=== PATIENT | female | born 1975 | race Caucasian/White ===

== ENCOUNTER 2024-02-19 02:19 | Inpatient (IN) | payer OTHER, SELFPAY ==
[2024-02-18 23:23] VITALS: BP 118/56
--- NOTE | 2024-02-18 23:39 | ED.GENMED ---
History of Present Illness
<Gini Cade PA-C - Last Filed: 02/19/24 02:30>
General
Chief Complaint: Breathing Problem
Source: patient
Exam Limitations: none
Time Seen by Provider: 02/18/24 23:37
Nursing documentation reviewed up to this point in time: agreed with
Travel History
Have you had any contact with someone who has COVID-19?: No
Do you have any symptoms of coronavirus? Fever > 100 degrees, chills, cough, shortness of breath, sore throat, loss of taste or smell, muscle aches, or headache?: No
History of Present Illness
History of Present Illness:
This is a 48-year-old female with a past medical history of insulin-dependent diabetes, hypertension, hyperlipidemia, anxiety, bipolar disorder, asthma who is presenting emergency department today with shortness of breath and cough. Patient has had
a chronic cough however notes that the cough has become worse within the past 24 hours. Patient receives long-term care at [facility] rehab facility. At her rehab facility, they noticed that her pulse ox was in the 80s. Patient does not use any
oxygen at baseline. Patient does have a history of asthma but states that she has not had to use her inhalers this past week. Patient denies any chest pain, abdominal pain, nausea, vomiting. Patient Nuys any fevers or chills. Patient denies any
pain in her lower extremities. 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 Patient apparently received an extra dose of Suboxone today. I did call [facility] rehab facility, however I was unable to speak to patient's nurse as there
was a shift change with the manager shift.
Past History
<Gini Cade PA-C - Last Filed: 02/19/24 02:30>
Past History
ED Past Medical History: Asthma, GERD, HTN, Hypercholesterolemia, NIDDM, Hypothyroidism and Psychiatric (Anxiety, bipolar disorder)
ED Past Surgical History: Cholecystectomy, Gynecological (Tubel), Orthopedic (RBKA) and Other (Umbilical hernia repair, Gastric bypass sleeve)
Social History
Tobacco: Smoker
Alcohol: None
Personal:
Living: retirement
Review of Systems
<Gini Cade PA-C - Last Filed: 02/19/24 02:30>
Review of Systems
All Other Systems: ROS reviewed and negative except as documented in HPI and ROS
Phy Exam
<Gini Cade PA-C - Last Filed: 02/19/24 02:30>
Physical Exam
Physical Exam:
General: Patient demonstrates increased work of breathing but is nontoxic-appearing. Chronically ill-appearing. Obese body habitus.
Skin: Warm and dry, no rashes or lesions
Head: Normocephalic, atraumatic
Eyes: Sclera non-icteric. EOMs intact. PERRLA.
Cardiac: Regular rate and rhythm, no murmurs
Peripheral Vascular: Left lower extremity edematous but non-pitting, distal pulses intact
Pulm: Increased respiratory effort, increased respiratory rate, audible wheezing heard, crackles heard on right lower lung base, diffuse wheezing heard
Abdomen: No abdominal tenderness to palpation
Musculoskeletal: No tenderness to palpation of bilateral lower extremities.
Neuro: CN II-XII intact, no focal neurologic deficits.
Psychiatric: Appropriate mood and affect.
Scores
<Gini Cade PA-C - Last Filed: 02/19/24 02:30>
Heart Failure Risk
Heart Failure Risk Score: Not Applicable
Course
<Gini Cade PA-C - Last Filed: 02/19/24 02:30>
Orders/Labs/Results
Orders:
Orders
02/18/24 23:21
Electrocardiogram (*1) Urgent
Reason for Study: Other
Other Reason for Exam: Respiratory Distress
Cardiac Monitoring- Treatment ONCE
EKG- Treatment ONCE
IV Insert/Care/Rem.- Treatment PRN
Complete Blood Count/With Diff Urgent
Comprehensive Metabolic Panel Urgent
NT-proBNP Urgent
Troponin I Urgent
O2 Therapy [RESP] Urgent
Titrate/Wean O2 to maintain O2 sat greater than (%): 93
Special Instructions: TO MAINTAIN CONTINUOUS O2 SATS >/= 93%
02/19/24 00:00
CR Chest - 2 Views Urgent
Reason For Exam: respiratory distress
02/19/24 00:32
Ipratropium/Albuterol Sulfate [Duoneb] 3 ml INH R NOW ONE
02/19/24 00:38
COVID-19 Antigen Urgent
Source: Nasal Swab
02/19/24 00:42
CT Chest W/o Iv Contrast Urgent
Comment:
Reason For Exam: cough, sob
02/19/24 01:09
0.9% Sodium Chloride 1000 ml [Nss] 1,000 ml IV BOLUS
02/19/24 01:10
CefTRIAXone [Rocephin] 1,000 mg IV NOW STA
02/19/24 01:39
Lactate Level [Lactic Acid] Urgent
Blood Culture Q30M
SEVERINO Source: Blood/Venous
Specimen Description:
02/19/24 01:53
Admit/Transfer Patient As Directed
Co-Sign Provider:
Level of Care: Inpatient admission
Assign to:: Telemetry
Physician / Group: Slick
Diagnosis: Pneumonia, Hypoxemia
Reason for Telemetry: Arrhythmia
Date to Stop Telemetry: 02/22/24
Time to Stop Telemetry: 11:00
Reason for Hospitalization: Pneumonia, Hypoxemia
Expected length of stay greater than two midnights?: Yes
ELOS- Estimated Length of Stay in days: 3
I certify the patient meets the requirements for IP care: Yes
02/19/24 01:57
Venous Blood Gas Urgent
%Oxygen/Room Air: 89
02/19/24 02:00
Doxycycline Hyclate [Vibramycin] 100 mg 0.9% Sodium Chloride 250 ml [Nss] 250 ml IV NOW
02/19/24 02:01
Code Status As Directed
Resuscitation Status: Full Code
Blood Culture, Pediatric Urgent
SEVERINO Source: Blood/Venous
Specimen Description:
Date Specimen was Collected: 02/19/24
Time Specimen was Collected: 02:01
02/22/24 11:00
DC Protocol for Telemetry ONCE
Abnormal Lab Results
02/19/24 02/19/24
00:11 01:57
WBC 14.6 H 10^3/uL
(4.8-10.8)
RBC 4.11 L 10^6/uL
(4.20-5.40)
Hgb 7.2 L g/dL
(12.0-16.0)
Hct 25.1 L %
(37.0-47.0)
MCV 61.1 L fL
(81.0-99.0)
MCH 17.5 L pg
(27.0-31.0)
MCHC 28.7 L g/dL
(33.0-37.0)
RDW 21.2 H %
(11.5-14.5)
Plt Count 437 H 10^3/uL
(130-400)
Abs Immat Gran (auto) 0.2 H 10^3/uL
(0-0.05)
Absolute Neuts (auto) 10.0 H 10^3/uL
(1.4-6.5)
Absolute Monos (auto) 1.4 H 10^3/uL
(0.1-0.6)
Immature Gran % 1.3 H %
(0-0.5)
Lymphocytes % 17.5 L %
(20.5-51.1)
VBG pCO2 54 H mmHg
(35-48)
VBG pO2 84 H mmHg
(30-50)
VBG HCO3 28.5 H mmol/L
(22-27)
BUN 21 H mg/dl
(7-17)
Creatinine 1.4 H mg/dL
(0.6-1.0)
AST 53 H U/L
(14-36)
Troponin I 0.143 H* ng/ml
02/19/24 00:11
02/19/24 00:11
Vital Signs
Initial and Last Documented VS:
Initial Vital Signs
Temp Pulse Resp BP Pulse Ox
99.2 F 77 17 118/56 89
02/18/24 23:23 02/18/24 23:23 02/18/24 23:23 02/18/24 23:23 02/18/24 23:23
Last Documented Vital Signs
Temp Pulse Resp BP Pulse Ox
99.2 F 80 20 97/53 93
02/18/24 23:23 02/19/24 02:12 02/19/24 01:00 02/19/24 02:02 02/19/24 02:12
<Clayton Mcguire MD - Last Filed: 02/19/24 01:21>
Orders/Labs/Results
Orders:
Orders
02/18/24 23:21
Electrocardiogram (*1) Urgent
Reason for Study: Other
Other Reason for Exam: Respiratory Distress
Cardiac Monitoring- Treatment ONCE
EKG- Treatment ONCE
IV Insert/Care/Rem.- Treatment PRN
Complete Blood Count/With Diff Urgent
Comprehensive Metabolic Panel Urgent
NT-proBNP Urgent
Troponin I Urgent
O2 Therapy [RESP] Urgent
Titrate/Wean O2 to maintain O2 sat greater than (%): 93
Special Instructions: TO MAINTAIN CONTINUOUS O2 SATS >/= 93%
02/19/24 00:00
CR Chest - 2 Views Urgent
Reason For Exam: respiratory distress
02/19/24 00:32
Ipratropium/Albuterol Sulfate [Duoneb] 3 ml INH R NOW ONE
02/19/24 00:38
COVID-19 Antigen Urgent
Source: Nasal Swab
02/19/24 00:42
CT Chest W/o Iv Contrast Urgent
Comment:
Reason For Exam: cough, sob
02/19/24 01:09
0.9% Sodium Chloride 1000 ml [Nss] 1,000 ml IV BOLUS
02/19/24 01:10
CefTRIAXone [Rocephin] 1,000 mg IV NOW STA
02/19/24 01:39
Lactate Level [Lactic Acid] Urgent
Blood Culture Q30M
SEVERINO Source: Blood/Venous
Specimen Description:
02/19/24 01:53
Admit/Transfer Patient As Directed
Co-Sign Provider:
Level of Care: Inpatient admission
Assign to:: Telemetry
Physician / Group: Slick
Diagnosis: Pneumonia, Hypoxemia
Reason for Telemetry: Arrhythmia
Date to Stop Telemetry: 02/22/24
Time to Stop Telemetry: 11:00
Reason for Hospitalization: Pneumonia, Hypoxemia
Expected length of stay greater than two midnights?: Yes
ELOS- Estimated Length of Stay in days: 3
I certify the patient meets the requirements for IP care: Yes
02/19/24 01:57
Venous Blood Gas Urgent
%Oxygen/Room Air: 89
02/19/24 02:00
Doxycycline Hyclate [Vibramycin] 100 mg 0.9% Sodium Chloride 250 ml [Nss] 250 ml IV NOW
02/19/24 02:01
Code Status As Directed
Resuscitation Status: Full Code
Blood Culture, Pediatric Urgent
SEVERINO Source: Blood/Venous
Specimen Description:
Date Specimen was Collected: 02/19/24
Time Specimen was Collected: 02:01
02/22/24 11:00
DC Protocol for Telemetry ONCE
Abnormal Lab Results
02/19/24 02/19/24
00:11 01:57
WBC 14.6 H 10^3/uL
(4.8-10.8)
RBC 4.11 L 10^6/uL
(4.20-5.40)
Hgb 7.2 L g/dL
(12.0-16.0)
Hct 25.1 L %
(37.0-47.0)
MCV 61.1 L fL
(81.0-99.0)
MCH 17.5 L pg
(27.0-31.0)
MCHC 28.7 L g/dL
(33.0-37.0)
RDW 21.2 H %
(11.5-14.5)
Plt Count 437 H 10^3/uL
(130-400)
Abs Immat Gran (auto) 0.2 H 10^3/uL
(0-0.05)
Absolute Neuts (auto) 10.0 H 10^3/uL
(1.4-6.5)
Absolute Monos (auto) 1.4 H 10^3/uL
(0.1-0.6)
Immature Gran % 1.3 H %
(0-0.5)
Lymphocytes % 17.5 L %
(20.5-51.1)
VBG pCO2 54 H mmHg
(35-48)
VBG pO2 84 H mmHg
(30-50)
VBG HCO3 28.5 H mmol/L
(22-27)
BUN 21 H mg/dl
(7-17)
Creatinine 1.4 H mg/dL
(0.6-1.0)
AST 53 H U/L
(14-36)
Troponin I 0.143 H* ng/ml
02/19/24 00:11
02/19/24 00:11
Vital Signs
Initial and Last Documented VS:
Initial Vital Signs
Temp Pulse Resp BP Pulse Ox
99.2 F 77 17 118/56 89
02/18/24 23:23 02/18/24 23:23 02/18/24 23:23 02/18/24 23:23 02/18/24 23:23
Last Documented Vital Signs
Temp Pulse Resp BP Pulse Ox
99.2 F 80 20 97/53 93
02/18/24 23:23 02/19/24 02:12 02/19/24 01:00 02/19/24 02:02 02/19/24 02:12
<Gini Cade PA-C - Last Filed: 02/19/24 02:30>
MDM/Problems Addressed
Differential Diagnosis Includes:
Differentials include community acquired pneumonia, acute bronchitis, acute heart failure, ACS, asthma exacerbation, PE, pneumothorax
MDM/Problems Addressed:
Shortness of breath, cough
Chronic conditions affecting care:
Diabetes, hypertension, hyperlipidemia, hypothyroidism, anxiety, bipolar disorder, opioid use disorder, asthma
Acute Exacerbation and/or Progression of Chronic Illness:
asthma
<Gini Cade PA-C - Last Filed: 02/19/24 02:30>
*Pulse Oximetry
Patient hypoxic: no
*Critical Care Note
Total Time (30-74mins, 75-104mins- exclusive of procedures): Not Applicable
Data Reviewed
Review of Other/Old Records Reveals: Records (Reviewed ER physician documentation from 07/24/2023, reviewed ER physician documentation from 07/09/2023)
Source: patient and records
<Gini Cade PA-C - Last Filed: 02/19/24 02:30>
Patient Management
Escalation/DeEscalation of care consider admission/obs:
48 y/o female with a past medical history of asthma seen emergency department today with shortness of breath. She comes from a long-term rehab facility. Her CT of her chest and pneumonia. Considering her comorbidities and oxygen requirement, will
start IV antibiotics and admit for further care.
ED Attending Note
<Gini Cade PA-C - Last Filed: 02/19/24 02:30>
-
Portions of this chart may have been created with voice recognition software.� Occasional wrong word or��sound alike� substitutions may have occurred due to the inherent limitations of voice recognition software.
<Clayton Mcguire MD - Last Filed: 02/19/24 01:21>
ED Attending Note
Patient seen and examined by attending physician: Yes
ED Attending Note:
I have seen and evaluated the patient with a [id number] encounter. I have spoken to the advance practicer provider and involved in the medical history, the physical exam, medical decision making.
Evaluation and management service: agree unless noted differently below.
Results interpretation: agree unless noted differently below.
Focused HPI: 48-year-old female with past medical history of hypertension, hyperlipidemia, independent diabetes, right BKA, obesity status post gastric bypass, opioid abuse currently on Suboxone who presents from [facility] where she has been living
for long-term care�he presents via EMS for evaluation of worsening cough and hypoxia. Patient reports that she has chronic dyspnea. She says that dyspnea and cough has been much worse over the past 48 hours. According to staff at retirement
patient was noted to have worsening cough today associate with hypoxia to the 80s. She was brought to the emergency room for assessment. Per EMS they gave her a DuoNeb on the way over to the hospital. She did receive her Suboxone just prior to
transport.
Physical exam: Patient sleeping but easily arousable. She has hypoxia to 89% on room air. Respiratory rate 18-20. Blood pressure normal. Pulse in the 70s. Frequent hacking coughing. Scattered wheezing with bilateral basilar rales. Right BKA.
Medical Decision Makin-year-old female with history as above presents from long-term care facility for worsening cough and shortness of breath, hypoxia. Exam as above. Recent labs including a CBC which showed leukocytosis and acute on chronic
anemia. CMP shows acute kidney injury with a creatinine of 1.4 from baseline of 0.7. She had a marginal elevation of troponin likely related to hypoxia�will continue to trend. She had chest x-ray which shows likely pneumonia�sent for a CT chest
to better clarify and confirms multifocal pneumonia. Will cover with antibiotics. Lactate and blood culture sent off. IV fluids in progress. Admit for continued management of acute respiratory failure with hypoxia, pneumonia. PA discussed with
hospitalist.
Discharge Plan
Departure
Patient Disposition: Admit
Date of Disposition: 02/19/24
Time of Disposition: :26
Admit to: Med/Surg
Presentation/result/management discussed w/ accepting MD/DO: Hospitalist
Patient with high blood pressure during this ER visit?: No
Condition: Fair
Discharge Problem:
Acute respiratory failure with hypoxia, Pneumonia
Prescriptions:
No Action
ziprasidone HCl [Geodon] 80 mg Capsule
80 mg PO BID
metformin 500 mg Tablet
500 mg PO BIDWMEAL
sennosides [senna] 8.6 mg Tablet
17.2 mg PO HS
acetaminophen 325 mg Tablet
650 mg PO Q6H PRN (Reason: mild pain/temp>100.4)
lamotrigine [Lamictal] 200 mg Tablet
200 mg PO BID
ipratropium-albuterol 0.5 mg-3 mg(2.5 mg base)/3 mL Solution For Nebulization
3 ml INHALATION R Q4 PRN (Reason: sob)
polyethylene glycol 3350 [Miralax] 17 gram Powder In Packet
17 g PO DAILY
cetirizine [Zyrtec] 10 mg Tablet
10 mg PO HS
ondansetron HCl [Zofran] 4 mg Tablet
8 mg PO Q8H PRN (Reason: nausea)
loperamide [Imodium A-D] 2 mg Tablet
2 mg PO Q12H PRN (Reason: diarrhea)
hydroxyzine HCl 50 mg Tablet
100 mg PO HS
hydroxyzine HCl 50 mg Tablet
50 mg PO Q6H PRN (Reason: anxiety)
clonidine HCl 0.2 mg Tablet
0.2 mg PO Q12H
methocarbamol 750 mg Tablet
750 mg PO Q6H PRN (Reason: muscle spams)
magnesium hydroxide [Milk of Magnesia] 400 mg/5 mL Suspension
30 ml PO DAILY PRN (Reason: if no bm in 3 days)
levothyroxine 50 mcg Tablet
50 mcg PO DAILY
bisacodyl 10 mg Suppository
10 mg MN DAILY PRN (Reason: if MOM is ineffective)
pantoprazole 40 mg Tablet,Delayed Release (Dr/Ec)
40 mg PO BID
diphenhydramine HCl [Benadryl Allergy] 25 mg Tablet
25 mg PO Q12H PRN (Reason: itching)
Fleet Enema 19-7 gram/118 mL Enema
118 ml MN DAILY PRN (Reason: if suppository is ineffective)
docusate sodium [Colace] 100 mg Capsule
100 mg PO BID
folic acid 1 mg Tablet
1 mg PO DAILY
furosemide 20 mg Tablet
20 mg PO DAILY
epinephrine [EpiPen 2-David] 0.3 mg/0.3 mL Auto-Injector
0.3 mg IM ONCE PRN (Reason: allergic reaction to bees)
Menthol Cough Drops Lozenge
3.1 mg MUCOUS MEMBRANE Q1H PRN (Reason: cough)
Patient Comments:
02/18/2024: 'give one prn at night (up to 3)'
insulin lispro 100 unit/mL Insulin Pen
2 - 10 sliding scale dose SC AC
Patient Comments:
02/18/2024: if 151-200= 2; 201-250= 4; 251-300=6; 301-350= 8; 351-400= 10; call MD if BS <60 or >400
insulin lispro 100 unit/mL Insulin Pen
2 unit SC HS
insulin lispro 100 unit/mL Insulin Pen
5 unit SC AC
guaifenesin 400 mg Tablet
800 mg PO DAILY
Biofreeze (menthol) 5 % Adhesive Patch,Medicated
1 patch TOPICAL DAILY PRN (Reason: R shoulder/R Stump Pain)
Becker Nasal Mist 0.65 % Aerosol,[place]
1 spray INTRANASAL Q12H PRN (Reason: dry nasal)
pregabalin 150 mg Capsule
150 mg PO BID
insulin glargine [Lantus Solostar U-100 Insulin] 100 unit/mL (3 mL) Insulin Pen
24 unit SC HS
fenofibrate 54 mg Tablet
54 mg PO DAILY
melatonin 10 mg Tablet
20 mg PO HS
buprenorphine-naloxone [Suboxone] 4-1 mg Film
1 film BUCCAL BID
Patient Comments:
02/18/2024: for 7 days, until 02/22/24
Biofreeze (menthol) 4 % Gel
1 applic TOPICAL Q12H PRN (Reason: mid back pain/stump/LLE)
Ozempic 0.25 mg or 0.5 mg (2 mg/3 mL) Pen Injector
1 mg SC Q7D
Robitussin Mucus-Chest Congest
10 ml PO Q4H PRN (Reason: cough)
Referrals:
Jarett Sarkar DO [Family Provider] -
Discharge Date and Time
Print Language: TAMAZIGHT
[2024-02-19] VITALS (14 sets, daily range): BP systolic 97–128; BP diastolic 46–81; BMI 54.7
[2024-02-19 00:35] LABS: ALT (SGPT) 34 U/L (0-35); AST (SGOT) 53 U/L (14-36); Albumin 3.8 g/dl (3.5-5.0); Alkaline Phosphatase 103 U/L (38-126); Blood Urea Nitrogen 21 mg/dl (7-17); Calcium 9.4 mg/dl (8.4-10.2); Carbon Dioxide 27 mmol/L (22-30); Chloride 99 mmol/L (98-107); Glucose 96 mg/dl (70-99); Potassium 4.1 mmol/L (3.5-5.1); Sodium 135 mmol/L (135-145); Total Bilirubin 0.4 mg/dl (0.2-1.3); Total Protein 6.9 g/dl (6.3-8.2); eGFR 46.41
[2024-02-19] MEDS: DUONEB 3 ML INH ×4 (00:41→19:53)
[2024-02-19 00:50] LABS: % Basophils 0.3 % (0-2); % Eosinophils 3.2 % (0-6); % Immature Granulocytes 1.3 % (0-0.5); % Lymphocytes 17.5 % (20.5-51.1); % Monocytes 9.2 % (1.7-9.3); % Neutrophils 68.5 % (42.2-75.2); Absolute Eosinophils 0.5 10^3/uL (0-0.7); Absolute Immature Granulocytes 0.2 10^3/uL (0-0.05); Absolute Lymphocytes 2.6 10^3/uL (1.2-3.4); Absolute Monocytes 1.4 10^3/uL (0.1-0.6); Hematocrit 25.1 % (37.0-47.0); Hemoglobin 7.2 g/dL (12.0-16.0); Mean Corp Hgb Conc. 28.7 g/dL (33.0-37.0); Mean Corpuscular Hgb 17.5 pg (27.0-31.0); Mean Corpuscular Volume 61.1 fL (81.0-99.0); Mean Platelet Volume 9.5 fL (7.4-10.4); Nucleated Red Blood Cells % 0 %; Platelet Count 437 10^3/uL (130-400); Red Blood Cell Count 4.11 10^6/uL (4.20-5.40); Red Cell Dist. Width 21.2 % (11.5-14.5); White Blood Cell Count 14.6 10^3/uL (4.8-10.8)
[2024-02-19 01:11] LABS: NT-proBNP 999 pg/ml; Troponin I 0.143 ng/ml
[2024-02-19 01:17] LABS: COVID-19 Antigen Negative (Negative)
[2024-02-19 02:02] LABS: Venous Blood Gas B.E. 2.1 mmol/L (-4 to +4); Venous Blood Gas HCO3 28.5 mmol/L (22-27); Venous Blood Gas O2 Sat % 97.6 %; Venous Blood Gas pCO2 54 mmHg (35-48); Venous Blood Gas pH 7.33 (7.32-7.43); Venous Blood Gas pO2 84 mmHg (30-50)
[2024-02-19] MEDS: ROCEPHIN 1000 MG IV (02:04)
[2024-02-19] MEDS: NSS 1000 IV (02:04)
--- NOTE | 2024-02-19 02:06 | HPS.HSE ---
Addendum entered and electronically signed by Yong Villaseñor MD 02/19/24 08:45:
Nonbillable note
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
Patient remains on oxygen with very harsh and productive greenish-yellow sputum return/complaint I have relation to being placed on a diabetic diet and 'I want to have my breakfast meats
Afebrile since arrival
Vital signs otherwise stable
Lungs with bibasilar rales or rhonchi harsh breath sounds/
Cardiac regular
Abdomen protuberant and morbidly obese
-Right below-knee amputation'
Multilobar pneumonia with cavitations/given her living environment and her presentation may have anaerobic infection and/or immune compromised component
Highly suspect for underlying sleep apnea/aspiration
Leukocytosis trending down/hemoglobin is dropped to 6.6/with a significantly microcytic indices and also iron levels depressed/COVID-negative
Agree with present course of antibiotics as ordered by jazz singer awaiting pulmonary input and sputum to be sent
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
We did order a unit of packed red blood cells and add oral iron infusions while here
Original Note:
Family Physician
-
Family Physician: Jarett Sarkar, DO
Chief Complaint
-
Cough / SOB
History of Present Illness
Patient is a 48y F with PMH significant for DM-II, bipolar disorder, hypertension and prior BKA who presents to ED complaining of cough and SOB. Patient is a long-term resident at [facility]. She reports cough x 2-3 days that was initially
productive of 'green' mucus and has since become non-productive. Patient states that she became SOB this evening prompting transfer to the ED for evaluation. Patient reports intermittent fevers at the [place] over the past 2 days. She denies any known
sick contacts. She denies any chest pain. She does report a single episode of emesis earlier today. No other GI or complaints.
Medical History
Past Medical History
Past Medical History: Reports Other
Additional Past Medical History:
DM-II
Hypertension
Osteomyelitis RLE
Bipolar Disorder
GERD
Chronic Pain / Opioid Use Disorder
Obesity
Hypothyroidism
Past Surgical History: Reports Other
Additional Past Surgical History:
Gastric Sleeve
Cholecystectomy
Tubal Ligation
RLE BKA
Social History
Tobacco: Former Smoker (No cigarettes the last 2 months. Approx 30 pack years total use.)
Alcohol: None
Living: Shelter
Family History
Family History: Not pertinent
Allergies / Home Medications
Allergies reflects when Allergies were last updated in [facility].
Home Medications with original date entered in [facility]
Allergy/Medication List:
Allergies
Allergy/AdvReac Type Severity Reaction Status Date / Time
aspirin Allergy Unknown Verified 02/18/24 23:22
barium iodide Allergy Unknown Verified 02/18/24 23:22
codeine Allergy Vomiting Verified 02/18/24 23:22
latex Allergy Rash Verified 02/18/24 23:31
Penicillins Allergy Unknown Verified 02/18/24 23:22
vancomycin Allergy Unknown Verified 02/18/24 23:22
Home Medications
Robitussin Mucus-Chest Congest 10 ml PO Q4H PRN cough 02/18/24
acetaminophen 325 mg tablet 650 mg PO Q6H PRN mild pain/temp>100.4 02/18/24
bisacodyl 10 mg rectal suppository 10 mg MA DAILY PRN if MOM is ineffective 02/18/24
buprenorphine 4 mg-naloxone 1 mg sublingual film (Suboxone) 1 film buccal BID 02/18/24
cetirizine 10 mg tablet (Zyrtec) 10 mg PO HS 02/18/24
clonidine HCl 0.2 mg tablet 0.2 mg PO Q12H 02/18/24
diphenhydramine HCl 25 mg tablet (Benadryl Allergy) 25 mg PO Q12H PRN itching 02/18/24
docusate sodium 100 mg capsule (Colace) 100 mg PO BID 02/18/24
epinephrine 0.3 mg/0.3 mL injection, auto-injector (EpiPen 2-David) 0.3 mg IM ONCE PRN allergic reaction to bees 02/18/24
eucalyptus-menthol oral mucosal lozenge 3.1 mg mucous membrane Q1H PRN cough 02/18/24
fenofibrate 54 mg tablet 54 mg PO DAILY 02/18/24
folic acid 1 mg tablet 1 mg PO DAILY 02/18/24
furosemide 20 mg tablet 20 mg PO DAILY 02/18/24
guaifenesin 400 mg tablet 800 mg PO DAILY 02/18/24
hydroxyzine HCl 50 mg tablet 50 mg PO Q6H PRN anxiety 02/18/24
hydroxyzine HCl 50 mg tablet 100 mg PO HS 02/18/24
insulin glargine 100 unit/mL (3 mL) subcutaneous pen (Lantus Solostar U-100 Insulin) 24 unit SC HS 02/18/24
insulin lispro 100 unit/mL subcutaneous pen 2 - 10 sliding scale dose SC AC 02/18/24
insulin lispro 100 unit/mL subcutaneous pen 2 unit SC HS 02/18/24
insulin lispro 100 unit/mL subcutaneous pen 5 unit SC AC 02/18/24
ipratropium 0.5 mg-albuterol 3 mg (2.5 mg base)/3 mL nebulization soln 3 ml inhalation R Q4 PRN sob 02/18/24
lamotrigine 200 mg tablet (Lamictal) 200 mg PO BID 02/18/24
levothyroxine 50 mcg tablet 50 mcg PO DAILY 02/18/24
loperamide 2 mg tablet (Imodium A-D) 2 mg PO Q12H PRN diarrhea 02/18/24
magnesium hydroxide 400 mg/5 mL oral suspension (Milk of Magnesia) 30 ml PO DAILY PRN if no bm in 3 days 02/18/24
melatonin 10 mg tablet 20 mg PO HS 02/18/24
menthol 4 % topical gel (Biofreeze (menthol)) 1 applic topical Q12H PRN mid back pain/stump/LLE 02/18/24
menthol 5 % topical patch (Biofreeze (menthol)) 1 patch topical DAILY PRN R shoulder/R Stump Pain 02/18/24
metformin 500 mg tablet 500 mg PO BIDWMEAL 02/18/24
methocarbamol 750 mg tablet 750 mg PO Q6H PRN muscle spams 02/18/24
ondansetron HCl 4 mg tablet 8 mg PO Q8H PRN nausea 02/18/24
pantoprazole 40 mg tablet,delayed release 40 mg PO BID 02/18/24
polyethylene glycol 3350 17 gram oral powder packet (Miralax) 17 g PO DAILY 02/18/24
pregabalin 150 mg capsule 150 mg PO BID 02/18/24
semaglutide 0.25 mg or 0.5 mg (2 mg/3 mL) subcutaneous pen injector (Ozempic) 1 mg SC Q7D 02/18/24
sennosides 8.6 mg tablet (senna) 17.2 mg PO HS 02/18/24
sodium chloride 0.65 % nasal spray aerosol 1 spray intranasal Q12H PRN dry nasal 02/18/24
sodium phosphates 19 gram-7 gram/118 mL enema (Fleet Enema) 118 ml MA DAILY PRN if suppository is ineffective 02/18/24
ziprasidone HCl 80 mg capsule (Geodon) 80 mg PO BID 02/18/24
Review of Systems
-
History Source: Patient
A 12 point ROS was completed and negative except as noted: Yes
Constitutional: Reports Fever, Fatigue and Chills
EENT: Denies Sore Throat
Respiratory: Reports Cough and Trouble Breathing
Cardiac: Denies Chest Pain or Palpitations
Abdomen/GI: Reports Nausea and Vomiting; Denies Abdominal Pain, Diarrhea, Constipated, Bloody Stools or Black Stools
: Denies Dysuria, Frequency or Flank Pain
Musculoskeletal: Reports Edema
Neurological: Denies Dizzy or Headache
Psych: Denies Depression or Anxiety
Physical Exam
Vital Signs
Vital Signs
Temp Pulse Resp BP Pulse Ox
99.2 F 79 20 126/81 100
02/18/24 23:23 02/19/24 01:00 02/19/24 01:00 02/19/24 00:12 02/19/24 01:00
Physical Exam
General: Other (Obese 48y F in mild distress due to cough / dyspnea.)
HEENT: Moist mucous membranes, PERRLA and Other (Thick neck.)
Respiratory: Other (Rhonchi at both bases. No wheezing.)
Cardiac: S1/S2 (distant heart tones) and Regular Rhythm
GI: Non Tender, Non Distended, Normal Bowel Sounds and Other (Obese)
Musculoskeletal: No Clubbing and Other (LLE with mild erythema and no increased warmth. 2-3+ pitting edema. RLE s/p BKA.)
Neuro: AO x 3
Laboratory Results
-
02/19/24 00:11
02/19/24 00:11
Laboratory Results
Total Bilirubin 0.4 mg/dl (0.2-1.3) 02/19/24 00:11
AST 53 U/L (14-36) H 02/19/24 00:11
ALT 34 U/L (0-35) 02/19/24 00:11
Alkaline Phosphatase 103 U/L (38-126) 02/19/24 00:11
Troponin I 0.143 ng/ml H* 02/19/24 00:11
Impression/Plan
-
A/P: Patient is a 48y F with PMH significant for hypertension, DM-II and obesity who presents to ED complaining of cough and SOB.
Multifocal Pneumonia
Acute Hypoxemic Respiratory Insufficiency secondary to the above
Sepsis secondary to the above
- Admit for further evaluation and treatment.
- Patient presents with bilateral pneumonia, tachypnea and leukocytosis with life-threatening organ dysfunction in the form of acute hypoxemia and JAMESON.
- CT scan done in the ED shows bilateral lower lobe pneumonia - small areas of cavitation appreciated especially at the R base.
- IV abx with cefepime and Flagyl for now (based on patient's allergy profile).
- Supportive care with supplemental O2, nebs, mucolytics, etc.
- Pulmonary evaluation for additional recommendations.
- Aspiration precautions / Speech therapy evaluation.
- Follow for clinical improvement and wean off of O2 as able.
JAMESON
- SCr = 1.4 compared to baseline of 0.7.
- Likely secondary to sepsis as noted above.
- Hold Lasix for now. Follow I/Os, daily weights, etc.
- Follow for return to baseline renal function.
Acute on Chronic Microcytic Anemia
- Hgb = 7.2 compared to prior baseline in the mid-9s.
- No gross evidence of bleeding per patient.
- Heme test stools.
- Check iron studies and replace / replete as needed.
- Consent signed in the event that transfusion is necessary during stay.
Non-Ischemic Myocardial Injury
- Troponin mildly elevated at 0.143.
- Suspect non-ischemic injury due to sepsis as noted above.
- Follow troponin to peak and monitor for any chest pain or other symptoms.
DM-II
- Stable. Continue basal : bolus insulin regimen.
- Follow glucose and cover with SSI as needed.
- Update A1C.
Benign Hypertension
- Patient is not on any antihypertensive medications.
- Follow BP and initiate meds if needed.
Bipolar Disorder
- Stable. Continue current psychotropic med regimen.
Hypothyroidism
- Stable. Continue current T4 supplementation.
- Update TFTs.
Chronic Pain Syndrome
- Stable. Continue buprenorphine, Lyrica, etc.
- Follow for any changes / worsening symptoms.
GERD
- Stable. Continue daily PPI.
Morbid Obesity due to excess calories
- Affects all aspects of care.
- Encourage healthy diet with goal of weight reduction.
DVT Prophylaxis: Lovenox
Code Status: Full
[2024-02-19 02:14] LABS: Lactic Acid 1.5 mmol/L (0.7-2.0)
[2024-02-19] MEDS: VIBRAMYCIN 260 MG IV (02:39)
[2024-02-19] MEDS: FLAGYL 500 MG 100 IV ×3 (06:20→22:12)
[2024-02-19] MEDS: MAXIPIME 2000 MG IV ×3 (06:21→22:12)
[2024-02-19] MEDS: STERILE WATER FOR INJECTION 10 ML IV ×3 (06:22→22:13)
[2024-02-19] MEDS: SYNTHROID 50 MCG PO (06:22)
[2024-02-19 06:39] LABS: Hematocrit 23.3 % (37.0-47.0); Mean Corp Hgb Conc. 28.3 g/dL (33.0-37.0); Mean Corpuscular Hgb 17.1 pg (27.0-31.0); Mean Corpuscular Volume 60.5 fL (81.0-99.0); Mean Platelet Volume 9.2 fL (7.4-10.4); Platelet Count 373 10^3/uL (130-400); Red Blood Cell Count 3.85 10^6/uL (4.20-5.40); Red Cell Dist. Width 20.9 % (11.5-14.5); White Blood Cell Count 12.2 10^3/uL (4.8-10.8)
[2024-02-19 06:59] LABS: Blood Urea Nitrogen 19 mg/dl (7-17); Carbon Dioxide 26 mmol/L (22-30); Chloride 102 mmol/L (98-107); Estimated Creatinine Clearance 86 ml/min; Glucose 110 mg/dl (70-99); Iron 27 ug/dl (37-170); Potassium 4.4 mmol/L (3.5-5.1); Sodium 135 mmol/L (135-145); eGFR > 60.00
[2024-02-19 07:06] LABS: Troponin I 0.128 ng/ml
[2024-02-19 07:07] LABS: Hemoglobin 6.6 g/dL (12.0-16.0)
[2024-02-19 07:08] LABS: Percent Saturation 6 % (20-50); Total Iron Binding Capacity 435 ug/dl (265-497)
[2024-02-19 07:29] LABS: TSH Reflex To Free T4 2.38 uIU/ml (0.47-4.68)
[2024-02-19 08:07] LABS: Glucose - Point of Care 124 mg/dl (70-99)
[2024-02-19] MEDS: NOVOLOG FLEXPEN-MODERATE RESISTANCE SC (08:58)
[2024-02-19] MEDS: NOVOLOG FLEXPEN 5 UNITS SC ×3 (08:59→17:29)
[2024-02-19] MEDS: GEODON 80 MG PO ×2 (09:00→20:09)
[2024-02-19] MEDS: CATAPRES 0.200000000000000011 MG PO ×2 (09:00→20:08)
[2024-02-19] MEDS: COLACE 100 MG PO ×2 (09:00→20:08)
[2024-02-19] MEDS: FOLVITE 1 MG PO (09:00)
[2024-02-19] MEDS: MUCINEX 1200 MG PO ×2 (09:01→20:07)
[2024-02-19] MEDS: LAMICTAL 200 MG PO ×2 (09:01→20:14)
[2024-02-19] MEDS: MIRALAX 17 GRAMS PO (09:01)
[2024-02-19] MEDS: LYRICA 150 MG PO ×2 (09:01→20:07)
[2024-02-19] MEDS: PROTONIX 40 MG PO ×2 (09:02→20:08)
[2024-02-19] MEDS: SUBUTEX 4 MG SL ×2 (09:02→20:07)
[2024-02-19 09:50] LABS: Glycohemoglobin (HgbA1c) 8.2 % (4.0-5.6)
[2024-02-19 11:08] LABS: Troponin I 0.105 ng/ml
[2024-02-19 12:20] LABS: Glucose - Point of Care 160 mg/dl (70-99)
[2024-02-19] MEDS: NOVOLOG FLEXPEN-MODERATE RESISTANCE 1 UNITS SC ×2 (12:27→17:29)
[2024-02-19] MEDS: TYLENOL 650 MG PO (15:29)
--- NOTE | 2024-02-19 15:40 | PTOTSP ---
SPEECH THERAPY SWALLOW EVALUATION:
Clinical signs of oropharyngeal dysphagia, likely acutely related to hypoxia, pneumonia. Patient is at high risk for aspiration and related complications given tenuous respiratory status and risk for obstruction/choking during oral prep phase, as
well as post-prandial aspiration given GERD. Recommend IDDSI Level 6 Soft and Bite Size diet, thin liquids; However, after discussion with patient, patient adamantly refused diet modification of any kind despite being educated on aspiration related
complications including worsening respiratory status, intubation, and/or . Discussed rationale for modified diet including limiting length of mastication and reducing energy expenditure in an effort to prevent aspiration/obstruction given
significant frequent coughing, though patient remained resistant to recommendations. Would consider VSE though unable due to body habitus. Extensive education provided to patient regarding aspiration risks/precautions and Reflux precautions. Patient
verbally reported she understood all recommendations. Continue Regular texture diet/thin liquids at discretion of MD. Continue medications whole with thin liquid one at a time. Strict aspiration precautions including: Upright positioning; Remain
upright 30 minutes after eating/drinking; Do not eat when SOB or coughing; Take breaks while eating/drinking; Only provide p.o. when SpO2>90% and RR<30; Supervision with meals to ensure use of strategies; D/c oral diet if signs of aspiration or a
decline in respiratory status and make NPO until ST re-consult. ST to follow, assess diet tolerance and modify as appropriate, provide continued education regarding aspiration risks and precautions, monitor CXR and Labs, and provide continued
diagnostic swallow therapy as appropriate.
RECOMMEND:
1) Regular texture diet/thin liquids at discretion of MD (patient refusing diet modifications at this time)
2) Medications whole with thin liquid one at a time
3) Strict aspiration precautions including: Upright positioning; Remain upright 30 minutes after eating/drinking; Do not eat when SOB or coughing; Take breaks while eating/drinking; Only provide p.o. when SpO2>90% and RR<30; Supervision with meals
to ensure use of strategies; D/c oral diet if signs of aspiration or a decline in respiratory status and make NPO until ST re-consult
4) ST to follow
[2024-02-19] MEDS: DUONEB INH (16:33)
--- NOTE | 2024-02-19 16:40 | CON.PUL ---
Consultation
Consultation Request
Date/Time Consultation Requested: 02-19-24
Date/Time Consultation Performed: 02-19-24
Requesting Provider: Hospitalist Ita
Performing Provider: Dr Macedo
Reason for Consultation: dyspnea
Medical History
-
Chief Complaint: cough
History of Present Illness:
Mrs Germaine Barba is a 48/W adm from [place] from 2-3 d h/o dyspnea, briefly productive cough (greenish sputum) and intermittent subjective fever.
At [facility] for more than 1 y after R BKA
Denies smoking for last 2 m, denies ETOH use or current illicit drug use, no recent dental work. On chronic buprenorphine.
At ER, afebrile, normotensive, normoxemic. First adm
Former smoker (quit 2 m ago. 30 pack y history)
Past Medical History
Past Medical History: Other (see A&P for PMH/PSH)
Social History
Tobacco: Former Smoker
Alcohol: None
Drug: Former User
Personal: Single
Living: Snf
Employment: Not Employed
Allergies / Home Medications
Allergies
Allergy/AdvReac Type Severity Reaction Status Date / Time
aspirin Allergy Unknown Verified 02/18/24 23:22
barium iodide Allergy Unknown Verified 02/18/24 23:22
codeine Allergy Vomiting Verified 02/18/24 23:22
latex Allergy Rash Verified 02/18/24 23:31
Penicillins Allergy Unknown Verified 02/18/24 23:22
vancomycin Allergy Unknown Verified 02/18/24 23:22
Home Medications
�Medication �Instructions �Recorded �Confirmed �Last Taken �Type
Robitussin Mucus-Chest Congest 10 ml PO Q4H PRN cough 02/18/24 02/18/24 Unknown History
acetaminophen 325 mg tablet 650 mg PO Q6H PRN mild 02/18/24 02/18/24 Unknown History
pain/temp>100.4
bisacodyl 10 mg rectal suppository 10 mg WA DAILY PRN if MOM is 02/18/24 02/18/24 Unknown History
ineffective
buprenorphine 4 mg-naloxone 1 mg 1 film buccal BID 02/18/24 02/18/24 Unknown History
sublingual film (Suboxone)
cetirizine 10 mg tablet (Zyrtec) 10 mg PO HS 02/18/24 02/18/24 Unknown History
clonidine HCl 0.2 mg tablet 0.2 mg PO Q12H 02/18/24 02/18/24 Unknown History
diphenhydramine HCl 25 mg tablet 25 mg PO Q12H PRN itching 02/18/24 02/18/24 Unknown History
(Benadryl Allergy)
docusate sodium 100 mg capsule 100 mg PO BID 02/18/24 02/18/24 Unknown History
(Colace)
epinephrine 0.3 mg/0.3 mL 0.3 mg IM ONCE PRN allergic 02/18/24 02/18/24 Unknown History
injection, auto-injector (EpiPen reaction to bees
2-David)
eucalyptus-menthol oral mucosal 3.1 mg mucous membrane Q1H PRN 02/18/24 02/18/24 Unknown History
lozenge cough
fenofibrate 54 mg tablet 54 mg PO DAILY 02/18/24 02/18/24 Unknown History
folic acid 1 mg tablet 1 mg PO DAILY 02/18/24 02/18/24 Unknown History
furosemide 20 mg tablet 20 mg PO DAILY 02/18/24 02/18/24 Unknown History
guaifenesin 400 mg tablet 800 mg PO DAILY 02/18/24 02/18/24 Unknown History
hydroxyzine HCl 50 mg tablet 50 mg PO Q6H PRN anxiety 02/18/24 02/18/24 Unknown History
hydroxyzine HCl 50 mg tablet 100 mg PO HS 02/18/24 02/18/24 Unknown History
insulin glargine 100 unit/mL (3 24 unit SC HS 02/18/24 02/18/24 Unknown History
mL) subcutaneous pen (Lantus
Solostar U-100 Insulin)
insulin lispro 100 unit/mL 2 - 10 sliding scale dose SC AC 02/18/24 02/18/24 Unknown History
subcutaneous pen
insulin lispro 100 unit/mL 2 unit SC HS 02/18/24 02/18/24 Unknown History
subcutaneous pen
insulin lispro 100 unit/mL 5 unit SC AC 02/18/24 02/18/24 Unknown History
subcutaneous pen
ipratropium 0.5 mg-albuterol 3 mg 3 ml inhalation R Q4 PRN sob 02/18/24 02/18/24 Unknown History
(2.5 mg base)/3 mL nebulization
soln
lamotrigine 200 mg tablet 200 mg PO BID 02/18/24 02/18/24 Unknown History
(Lamictal)
levothyroxine 50 mcg tablet 50 mcg PO DAILY 02/18/24 02/18/24 Unknown History
loperamide 2 mg tablet (Imodium 2 mg PO Q12H PRN diarrhea 02/18/24 02/18/24 Unknown History
A-D)
magnesium hydroxide 400 mg/5 mL 30 ml PO DAILY PRN if no bm in 3 02/18/24 02/18/24 Unknown History
oral suspension (Milk of Magnesia) days
melatonin 10 mg tablet 20 mg PO HS 02/18/24 02/18/24 Unknown History
menthol 4 % topical gel (Biofreeze 1 applic topical Q12H PRN mid back 02/18/24 02/18/24 Unknown History
(menthol)) pain/stump/LLE
menthol 5 % topical patch 1 patch topical DAILY PRN R 02/18/24 02/18/24 Unknown History
(Biofreeze (menthol)) shoulder/R Stump Pain
metformin 500 mg tablet 500 mg PO BIDWMEAL 02/18/24 02/18/24 Unknown History
methocarbamol 750 mg tablet 750 mg PO Q6H PRN muscle spams 02/18/24 02/18/24 Unknown History
ondansetron HCl 4 mg tablet 8 mg PO Q8H PRN nausea 02/18/24 02/18/24 Unknown History
pantoprazole 40 mg tablet,delayed 40 mg PO BID 02/18/24 02/18/24 Unknown History
release
polyethylene glycol 3350 17 gram 17 g PO DAILY 02/18/24 02/18/24 Unknown History
oral powder packet (Miralax)
pregabalin 150 mg capsule 150 mg PO BID 02/18/24 02/18/24 Unknown History
semaglutide 0.25 mg or 0.5 mg (2 1 mg SC Q7D 02/18/24 02/18/24 Unknown History
mg/3 mL) subcutaneous pen injector
(Ozempic)
sennosides 8.6 mg tablet (senna) 17.2 mg PO HS 02/18/24 02/18/24 Unknown History
sodium chloride 0.65 % nasal spray 1 spray intranasal Q12H PRN dry 02/18/24 02/18/24 Unknown History
aerosol nasal
sodium phosphates 19 gram-7 118 ml WA DAILY PRN if suppository 02/18/24 02/18/24 Unknown History
gram/118 mL enema (Fleet Enema) is ineffective
ziprasidone HCl 80 mg capsule 80 mg PO BID 02/18/24 02/18/24 Unknown History
(Geodon)
Review of Systems
-
History Source: Patient
All other systems: Negative unless noted
Respiratory: Cough and Trouble Breathing
Vitals / Labs / Diagnostic Testing
Vital Signs
Temp Pulse Resp BP Pulse Ox
100.5 F H 76 16 110/59 96
02/19/24 15:56 02/19/24 15:56 02/19/24 15:56 02/19/24 15:56 02/19/24 15:56
Lab Data
02/19/24 06:00
02/19/24 06:00
Microbiology
02/19/24 12:19 Sputum Gram Stain - Preliminary
Diagnostic Testing:
Physical Exam
-
HEENT: Normocephalic, Moist Mucous Membranes and Thrush (n)
Cardiovascular: Regular Rhythm, Murmur (n) and Other (R BKA)
Respiratory: Rhonchi and Non-Labored Respirations
GI: Soft, Non Distended and Non Tender
Neurology: Awake, Oriented and No Motor Deficits
Skin: Warm
General: Respiratory Distress (n)
Assessment
-
Assessment:
Mrs Germaine Barba is a 48/W adm from [place] from 2-3 d h/o dyspnea, briefly productive cough (greenish sputum) and intermittent subjective fever. At [facility] for more than 1 y, denies smoking for last 2 m, denies ETOH use or current illicit drug use, no recent
dental work. On chronic buprenorphine. At ER, afebrile, normotensive, normoxemic. First DH adm
Impression:
Bilateral pulm infiltrates:
R>L posterior basilar infiltrates
Patchy upper lobes infiltrates
New RLL posterior small cavitations
Mild mediastinal LAD
Conditions WOOLEN TESTER:
DM-II
Hypertension
Osteomyelitis RLE, s/p R BKA
Bipolar Disorder
GERD
Chronic Pain / Opioid Use Disorder
Obesity
Hypothyroidism
Gastric Sleeve
Cholecystectomy
Tubal Ligation
Former smoker (quit 2 m ago. 30 pack y history)
NHR
Plan:
O2 protocol as needed
Asp precs
IS
Acapella
Dns qid
Alb nebs prn
Sputum and blood cx pending
MRSA screen pending
Continue empiric cefepime and metronidazole IV
Follow response and adjust coverage accordingly
Speech evaluation -18 with clinical signs of OP dysphagia, considered at high risk for aspiration, rec level 6 soft diet and thin liquids but patient refused
Would consider VSE but body habitus could make it difficult
D/w Mrs Barba
--- NOTE | 2024-02-19 17:16 | VATNOTE ---
Pt states we cannot use her left arm for vascular access or blood pressure because of a blood clot she had in that arm 1 year ago. Pt states Blood clot was not treated when discovered. Measured both of pt's upper arms 10 cm above her antecubital
fossa and both arms measured 44 cms. Pt denies any pain that could be attributed to a blood clot. MD contacted for peripheral vascular ultrasound of left arm to identify if the patient has a blood clot in her left arm so that we may use her left arm
if possible for vascular access since the patient has difficult vasculature.
[2024-02-19 17:22] LABS: Glucose - Point of Care 194 mg/dl (70-99)
[2024-02-19] MEDS: FERRLECIT 110 MG IV (17:22)
[2024-02-19] MEDS: LOVENOX 40 MG SC (17:24)
[2024-02-19] MEDS: SENOKOT 17.1999999999999993 MG PO (22:13)
[2024-02-19] MEDS: MAXIPIME IV (22:14)
[2024-02-19] MEDS: ZYRTEC 10 MG PO (22:15)
[2024-02-19] MEDS: LANTUS 0.200000000000000011 UNITS SC (22:15)
[2024-02-19 22:17] LABS: Glucose - Point of Care 203 mg/dl (70-99)
[2024-02-20] VITALS (7 sets, daily range): BP systolic 97–129; BP diastolic 44–86; PULSE 89; O2SAT 95; BMI 54.2
[2024-02-20] MEDS: FLAGYL 500 MG 100 IV ×3 (05:54→21:59)
[2024-02-20] MEDS: STERILE WATER FOR INJECTION 10 ML IV ×3 (05:55→22:00)
[2024-02-20] MEDS: SYNTHROID 50 MCG PO (05:55)
[2024-02-20] MEDS: MAXIPIME 2000 MG IV ×3 (05:55→21:59)
[2024-02-20 07:11] LABS: Hemoglobin 7.6 g/dL (12.0-16.0); Mean Corp Hgb Conc. 29.2 g/dL (33.0-37.0); Mean Corpuscular Hgb 18.1 pg (27.0-31.0); Mean Corpuscular Volume 61.8 fL (81.0-99.0); Mean Platelet Volume 9.5 fL (7.4-10.4); Platelet Count 370 10^3/uL (130-400); Red Blood Cell Count 4.21 10^6/uL (4.20-5.40); Red Cell Dist. Width 22.1 % (11.5-14.5); White Blood Cell Count 7.9 10^3/uL (4.8-10.8)
[2024-02-20 07:35] LABS: Blood Urea Nitrogen 14 mg/dl (7-17); Carbon Dioxide 26 mmol/L (22-30); Chloride 104 mmol/L (98-107); Estimated Creatinine Clearance 118 ml/min; Glucose 137 mg/dl (70-99); Potassium 4.7 mmol/L (3.5-5.1); Sodium 138 mmol/L (135-145); eGFR > 60.00
[2024-02-20] MEDS: DUONEB 3 ML INH ×4 (07:57→20:22)
[2024-02-20 08:04] LABS: Glucose - Point of Care 170 mg/dl (70-99)
--- NOTE | 2024-02-20 08:20 | W.PN.HOSP.TC ---
Today's Communication/Plan
-
We again went over the risk involved in regards to his her refusal to modify her diet in regards to recurrent aspiration likely hendricks.
Continue cefepime and Flagyl await sputum cultures MRSA screen
Continue chest percussion/Acapella incentive spirometry
Continue daily IV iron infusions for iron deficiency
Assessment / Plan
Assessment / Plan
Patient is a 48y F with PMH significant for DM-II, bipolar disorder, hypertension and prior BKA who presents to ED complaining of cough and SOB. Patient is a long-term resident at [facility]. She reports cough x 2-3 days that was initially
productive of 'green' mucus and has since become non-productive. Patient states that she became SOB this evening prompting transfer to the ED for evaluation. Patient reports intermittent fevers at the [place] over the past 2 days. She denies any known
sick contacts. She denies any chest pain. She does report a single episode of emesis earlier today. No other GI or complaints.
Multifocal Pneumonia/bronchiectasis/chronic aspiration?
Acute Hypoxemic Respiratory Insufficiency secondary to the above
Sepsis secondary to the above
- Admit for further evaluation and treatment.
- Patient presents with bilateral pneumonia, tachypnea and leukocytosis with life-threatening organ dysfunction in the form of acute hypoxemia and JAMESON.
- CT scan done in the ED shows bilateral lower lobe pneumonia - small areas of cavitation appreciated especially at the R base.
- IV abx with cefepime and Flagyl for now (based on patient's allergy profile).
- Supportive care with supplemental O2, nebs, mucolytics, etc.
- Pulmonary evaluation for additional recommendations. Appreciated
- Aspiration precautions / Speech therapy evaluation. Noted high risk of aspiration based on their assessment patient refuses modified diet/patient was again appraised of the risk involved
- Follow for clinical improvement and wean off of O2 as able.
JAMESON
- SCr = 1.4 compared to baseline of 0.7/improved to 0.8 today.
- Likely secondary to sepsis as noted above.
- Hold Lasix for now. Follow I/Os, daily weights, etc.
- Follow for return to baseline renal function.
Acute on Chronic Microcytic Anemia
- Hgb = 7.2 compared to prior baseline in the mid-9s.>> 6.6 >> 7.6 after 1 unit yesterday
- No gross evidence of bleeding per patient.
- Heme test stools.
- Check iron studies all depressed/placed on IV iron daily
- Consent signed for blood transfusion and given 1 unit on 18 February
Non-Ischemic Myocardial Injury
- Troponin mildly elevated at 0.143.
- Suspect non-ischemic injury due to sepsis as noted above.
- Follow troponin to peak and monitor for any chest pain or other symptoms.
DM-II
- Stable. Continue basal : bolus insulin regimen.
- Follow glucose and cover with SSI as needed.
- Update A1C.
Benign Hypertension
- Patient is not on any antihypertensive medications.
- Follow BP and initiate meds if needed.
Bipolar Disorder
- Stable. Continue current psychotropic med regimen.
Hypothyroidism
- Stable. Continue current T4 supplementation.
- Update TFTs.
Chronic Pain Syndrome
- Stable. Continue buprenorphine, Lyrica, etc.
- Follow for any changes / worsening symptoms.
GERD
- Stable. Continue daily PPI.
Morbid Obesity due to excess calories
- Affects all aspects of care.
- Encourage healthy diet with goal of weight reduction.
DVT Prophylaxis: Lovenox
Code Status: Full
Anticipated Discharge: 24 - 48 hours
Subjective/Interval History
-
Date of Service: February 20, 2024
Remains fixated on her lack of getting meat in her morning meals she refused dietary changes in relation to high risk of aspiration after speech eval yesterday to avoid aspiration she was again made aware of the risk involved. She continues with a
very harsh and productive purulent return on her cough
Objective Data
-
Labs:
Laboratory Results
02/20/24
06:36
WBC 7.9
Hgb 7.6 L
Hct 26.0 L
Plt Count 370
Sodium 138
Potassium 4.7
Chloride 104
Carbon Dioxide 26
BUN 14
Creatinine 0.8
Glucose 137 H
Calcium 9.0
Vital Signs:
Vital Signs
Temp Pulse Resp BP Pulse Ox
98.4 F 75 20 97/59 96
02/20/24 07:00 02/20/24 08:01 02/20/24 08:01 02/20/24 07:00 02/20/24 08:01
I&O
02/19/24 02/20/24 02/21/24
06:59 06:59 06:59
Intake Total 610 / 610
Balance 610 / 610
Review of Systems
-
Respiratory: Reports Cough (Harsh and rhonchorous)
Cardiac: Reports No Symptoms
Abdomen/GI: Reports No Symptoms
Physical Exam
-
General: Morbidly Obese
HEENT: Normocephalic
Respiratory: Rhonchi
Cardiac: Regular Rhythm
GI: Soft
Neuro: Awake, Alert and Oriented
Psych: Anxious
Data Reviewed
-
Total Time Spent with Patient (in minutes): 45
Diagnostic Radiology: Report Reviewed by me
Labs: Labs Reviewed by me (Hemoglobin up to 7.6 up from 6.6 after 1 unit of blood/white count remained stable and not elevated/1 has trended down)
--- NOTE | 2024-02-20 08:34 | W.PN.UPDATE ---
Update Note
Progress Note Update
Troponin elevation 0.1 felt to be nonischemic origin after review of EKG and clinical presentation
[2024-02-20] MEDS: CATAPRES PO (08:53)
[2024-02-20] MEDS: COLACE PO ×2 (08:54→20:56)
[2024-02-20] MEDS: MUCINEX 1200 MG PO ×2 (08:54→20:16)
[2024-02-20] MEDS: PROTONIX 40 MG PO ×2 (08:54→20:17)
[2024-02-20] MEDS: MIRALAX PO (08:54)
[2024-02-20] MEDS: FOLVITE 1 MG PO (08:55)
[2024-02-20] MEDS: LYRICA 150 MG PO ×2 (08:55→20:14)
[2024-02-20] MEDS: SUBUTEX 4 MG SL ×2 (08:55→20:14)
[2024-02-20] MEDS: LAMICTAL 200 MG PO ×2 (08:55→20:16)
[2024-02-20] MEDS: GEODON 80 MG PO ×2 (08:56→20:16)
[2024-02-20] MEDS: NOVOLOG FLEXPEN 5 UNITS SC ×3 (08:57→17:35)
[2024-02-20] MEDS: NOVOLOG FLEXPEN-MODERATE RESISTANCE 1 UNITS SC ×2 (08:57→17:35)
[2024-02-20 12:18] LABS: Glucose - Point of Care 200 mg/dl (70-99)
[2024-02-20] MEDS: NOVOLOG FLEXPEN-MODERATE RESISTANCE 3 UNITS SC (12:41)
[2024-02-20] MEDS: FERRLECIT 110 MG IV (15:13)
[2024-02-20 16:14] LABS: Glucose - Point of Care 183 mg/dl (70-99)
[2024-02-20] MEDS: LOVENOX 40 MG SC (17:36)
--- NOTE | 2024-02-20 18:14 | W.PN.PUL3 ---
Today's Communication / Plan
-
CXR
Atbs
Assessment
-
Assessment:
Mrs Germaine Barba is a 48/W adm from [place] from 2-3 d h/o dyspnea, briefly productive cough (greenish sputum) and intermittent subjective fever. At [place] for more than 1 y, denies smoking for last 2 m, denies ETOH use or current illicit drug use, no recent
dental work. On chronic buprenorphine. At ER, afebrile, normotensive, normoxemic. First DH adm
Impression:
Bilateral pulm infiltrates:
R>L posterior basilar infiltrates
Patchy upper lobes infiltrates
New RLL posterior small cavitations
Mild mediastinal LAD
Conditions ROOF FIXER:
DM-II
Hypertension
Osteomyelitis RLE, s/p R BKA
Bipolar Disorder
GERD
Chronic Pain / Opioid Use Disorder
Obesity
Hypothyroidism
Gastric Sleeve
Cholecystectomy
Tubal Ligation
Former smoker (quit 2 m ago. 30 pack y history)
NHR
Plan:
O2 protocol as needed
Currently on RA
Asp precs
IS
Acapella
Dns qid
Alb nebs prn
Bilateral pulm infiltrates:
R>L posterior basilar infiltrates
Patchy upper lobes infiltrates
New RLL posterior small cavitations
Mild mediastinal LAD
Sputum and blood cx pending
MRSA screen pending
Continue empiric cefepime and metronidazole IV
Follow response and adjust coverage accordingly
F/u CXR in AM, ordered
Speech evaluation 02-18 with clinical signs of OP dysphagia, considered at high risk for aspiration, rec level 6 soft diet and thin liquids but patient refused
Would consider VSE but body habitus could make it difficult
D/w Mrs Barba
Subjective Data
-
Date of Service:
Date of Service: February 20, 2024
Chief Complaint: Pulmonary Follow Up
Subjective:
No major events reported overnight
Continues on room air at this time
Wants to go home tomorrow
Reports improvement of dyspnea and especially improvement of cough
Review of Systems
General: Fever (n)
HEENT: Dysphagia (n)
Cardiopulmonary: Dyspnea (n), Cough, Sputum Production and Chest Pain (n)
GI: Abdominal Pain (n), Nausea (n) and Vomiting
Neuro: Weakness
Objective Data
Data Reviewed
Vital Signs / I&O / Oxygen:
Vital Signs
Temp Pulse Resp BP Pulse Ox
98.4 F 84 20 103/65 98
02/20/24 15:00 02/20/24 15:25 02/20/24 15:25 02/20/24 15:00 02/20/24 15:00
Intake and Output
02/19/24 02/20/24 02/21/24
06:59 06:59 06:59
Intake Total 610 / 610
Balance 610 / 610
SaO2 98
Nasal Cannula flow liters per 2
minute
Labs/Micro/Reports
Lab Data
02/20/24 06:36
02/20/24 06:36
Microbiology
02/19/24 08:19 Nose MRSA Screen - Final
No Methicillin Resistant Staphylococcus aureus isolated.
02/19/24 12:19 Sputum Respiratory Culture - Preliminary
Usual Respiratory Tita
02/19/24 12:19 Sputum Gram Stain - Preliminary
02/19/24 02:09 Blood/Venous Blood Culture - Preliminary
No Growth in 24 hours- Final report to follow
02/19/24 01:39 Blood/Venous Blood Culture - Preliminary
No Growth in 24 hours- Final report to follow
[2024-02-20] MEDS: CATAPRES 0.200000000000000011 MG PO (20:17)
[2024-02-20 21:45] LABS: Glucose - Point of Care 220 mg/dl (70-99)
[2024-02-20] MEDS: LANTUS 0.200000000000000011 UNITS SC (21:59)
[2024-02-20] MEDS: SENOKOT PO (22:00)
[2024-02-20] MEDS: ZYRTEC 10 MG PO (22:03)
[2024-02-21 03:00] VITALS: BP 148/64
[2024-02-21] MEDS: MAXIPIME 2000 MG IV ×2 (05:58→13:21)
[2024-02-21] MEDS: SYNTHROID 50 MCG PO (05:59)
[2024-02-21] MEDS: STERILE WATER FOR INJECTION 10 ML IV ×2 (05:59→13:21)
[2024-02-21] MEDS: FLAGYL 500 MG 100 IV (05:59)
[2024-02-21 06:00] VITALS: BMI 54.2
[2024-02-21 07:00] VITALS: BP 156/80
[2024-02-21 07:00] LABS: Hematocrit 28.1 % (37.0-47.0); Hemoglobin 8.1 g/dL (12.0-16.0); Mean Corp Hgb Conc. 28.8 g/dL (33.0-37.0); Mean Corpuscular Hgb 18.1 pg (27.0-31.0); Mean Corpuscular Volume 62.9 fL (81.0-99.0); Platelet Count 375 10^3/uL (130-400); Red Blood Cell Count 4.47 10^6/uL (4.20-5.40); Red Cell Dist. Width 22.4 % (11.5-14.5)
[2024-02-21] MEDS: DUONEB 3 ML INH ×2 (08:03→11:45)
[2024-02-21 08:09] LABS: Glucose - Point of Care 174 mg/dl (70-99)
[2024-02-21] MEDS: NOVOLOG FLEXPEN-MODERATE RESISTANCE 1 UNITS SC (09:11)
[2024-02-21] MEDS: NOVOLOG FLEXPEN 5 UNITS SC ×2 (09:11→12:40)
[2024-02-21] MEDS: MUCINEX 1200 MG PO (09:11)
[2024-02-21] MEDS: COLACE PO (09:12)
[2024-02-21] MEDS: CATAPRES 0.200000000000000011 MG PO (09:12)
[2024-02-21] MEDS: PROTONIX 40 MG PO (09:12)
[2024-02-21] MEDS: LYRICA 150 MG PO (09:12)
[2024-02-21] MEDS: SUBUTEX 4 MG SL (09:12)
[2024-02-21] MEDS: GEODON 80 MG PO (09:13)
[2024-02-21] MEDS: MIRALAX PO (09:13)
[2024-02-21] MEDS: FOLVITE 1 MG PO (09:13)
[2024-02-21] MEDS: LAMICTAL 200 MG PO (09:13)
--- NOTE | 2024-02-21 10:55 | W.PN.PUL3 ---
Today's Communication / Plan
-
Abx
Incentive spirometer
Narrow ABx
Patient is being prepared for discharge home. Pulmonary service will now sign off. Please reconsult if there are any additional questions/concerns, or if patient's respiratory status deteriorates.
Assessment
-
Assessment:
Mrs Germaine Barba is a 48/W adm from [place] from 2-3 d h/o dyspnea, briefly productive cough (greenish sputum) and intermittent subjective fever. At [place] for more than 1 y, denies smoking for last 2 m, denies ETOH use or current illicit drug use, no recent
dental work. On chronic buprenorphine. At ER, afebrile, normotensive, normoxemic. First adm
Impression:
Acute respiratory failure with hypoxia (on room air but SpO2 <95%)
Bilateral pulm infiltrates:
R>L posterior basilar infiltrates
Patchy upper lobes infiltrates
New RLL posterior small cavitations
Mild mediastinal LAD
Morbid obesity (BMI: 54.2)
Conditions TYRE FITTER:
DM-II
Hypertension
Osteomyelitis RLE, s/p R BKA
Bipolar Disorder
GERD
Chronic Pain / Opioid Use Disorder
Obesity
Hypothyroidism
Gastric Sleeve
Cholecystectomy
Tubal Ligation
Former smoker (quit 2 m ago. 30 pack y history)
NHR
Plan:
O2 protocol as needed
Currently on RA
Asp precs
IS
Acapella
Dns qid
Alb nebs prn
Bilateral pulm infiltrates:
R>L posterior basilar infiltrates
Patchy upper lobes infiltrates
New RLL posterior small cavitations
Mild mediastinal LAD
Sputum and blood cx show NGTD
MRSA screen negative
Continue Abx --> can narrow ABx from cefepime/metronidazole to rocephin and azithro and give total of 7 days beta-lactam and 5 days zithromax
Follow response and adjust coverage accordingly
Check urine antigens for legionella and Strep PNA - negative
Speech evaluation 02-18 with clinical signs of OP dysphagia, considered at high risk for aspiration, rec level 6 soft diet and thin liquids but patient refused
Would consider VSE but body habitus could make it difficult
D/w Mrs Barba
Patient is being prepared for discharge home. Pulmonary service will now sign off. Thank you for allowing us to be involved in the care of this patient. Please reconsult if there are any additional questions/concerns, or if patient's respiratory
status deteriorates.
Total time spent today was 25 minutes for this encounter. Time includes reviewing laboratory test/imaging results, reviewing pertinent medical records, obtaining and reviewing medical history, performing an appropriate exam, ordering medications,
tests and procedures. Time also includes documentation of this encounter, coordinating patient care and communicating with other healthcare professionals. Total time does not include separately billed tests performed on this date of service.
Subjective Data
-
Date of Service:
Date of Service: February 21, 2024
Chief Complaint: Pulmonary Follow Up
Subjective:
Seen and evaluated today. No acute events ported overnight. Cough improved. Awaiting discharge home.
Review of Systems
General: Other (Negative unless mentioned above)
Objective Data
Data Reviewed
Vital Signs / I&O / Oxygen:
Vital Signs
Temp Pulse Resp BP Pulse Ox
99.0 F 87 18 149/68 94
02/21/24 11:00 02/21/24 11:47 02/21/24 11:47 02/21/24 11:00 02/21/24 11:47
Intake and Output
02/20/24 02/21/24 02/22/24
06:59 06:59 06:59
Intake Total 610 / 610 2580 / 2580
Balance 610 / 610 2580 / 2580
SaO2 94
Nasal Cannula flow liters per 2
minute
Physical Exam
General: Comfortable
HEENT: Normocephalic and Anicteric
Cardiovascular: S1-S2
Respiratory: Wheeze (n), Rhonchi (Bilateral) and Non-Labored Respirations
GI: Soft and Non Tender
Neurology: Awake and Alert
Skin: Warm and Dry
Labs/Micro/Reports
Lab Data
02/21/24 06:51
02/20/24 06:36
Microbiology
02/19/24 12:19 Sputum Respiratory Culture - Final
Usual Respiratory Tita
02/19/24 12:19 Sputum Gram Stain - Final
02/19/24 02:09 Blood/Venous Blood Culture - Preliminary
No Growth in 48 hours- Final report to follow
02/19/24 01:39 Blood/Venous Blood Culture - Preliminary
No Growth in 48 hours- Final report to follow
02/19/24 08:19 Nose MRSA Screen - Final
No Methicillin Resistant Staphylococcus aureus isolated.
[2024-02-21 11:00] VITALS: BP 149/68
--- NOTE | 2024-02-21 11:12 | W.PN.HOSP.TC ---
Today's Communication/Plan
-
DC home today
Assessment / Plan
Assessment / Plan
Patient is a 48y F with PMH significant for DM-II, bipolar disorder, hypertension, prior BKA, morbidly obese; who presented to ED complaining of cough and SOB.
Patient is a long-term resident at [facility]. Patient also reported intermittent fevers at the [place] over the past 2 days.
A/P:
# Multifocal Pneumonia/bronchiectasis/chronic aspiration with aspiration pneumonia
# Acute Hypoxemic Respiratory Insufficiency secondary to the above, resolved
# Sepsis POA secondary to the above
Patient presents with bilateral pneumonia, tachypnea and leukocytosis with life-threatening organ dysfunction in the form of acute hypoxemia and JAMESON.
CT scan done in the ED shows bilateral lower lobe pneumonia - small areas of cavitation appreciated especially at the R base.
IV abx with cefepime and Flagyl -> cefdinir and flagyl for 3 more days
Weaned off supplemental O2
Cont nebs, mucolytics, etc.
Pulmonary on board
SPL recc IDDSI Level 6 Soft and Bite Size diet, however, patient continues to refuse diet modifications at this time
# JAMESON, resolved
SCr 1.4 -> 0.8
resume SAP DIRECTOR Lasix 20 mg daily 02/20
# Acute on Chronic Microcytic Anemia
s/p 1 unit PRBC transfusion
Hgb improved from 6.6 to 8.1 today
No gross evidence of bleeding per patient.
Heme test stools if able.
iron studies all depressed/placed on IV iron daily
# Non-Ischemic Myocardial Injury
Troponin mildly elevated at 0.143, plateaued at 0.1
Suspect non-ischemic injury due to sepsis as noted above.
# DM-II, Stable.
Continue basal : bolus insulin regimen.
Follow glucose and cover with SSI as needed.
A1C at 8.2 %.
# Benign Hypertension
Patient is not on any antihypertensive medications.
Follow BP and initiate meds if needed.
# Bipolar Disorder
Stable. Continue current psychotropic med regimen.
# Hypothyroidism
Stable. Continue current T4 supplementation.
TSH 2.38
# Chronic Pain Syndrome
Stable. Continue buprenorphine, Lyrica, etc.
Follow for any changes / worsening symptoms.
# GERD
Stable. Continue daily PPI.
# Morbid Obesity due to excess calories
Affects all aspects of care.
Encourage healthy diet with goal of weight reduction.
DVT Prophylaxis: Lovenox
Code Status: Full
Dispo: return to [facility] today
Anticipated Discharge: Today
Subjective/Interval History
-
Date of Service: February 21, 2024
Objective Data
-
Labs:
Laboratory Results
02/21/24
06:51
WBC 10.0
Hgb 8.1 L
Hct 28.1 L
Plt Count 375
Vital Signs:
Vital Signs
Temp Pulse Resp BP Pulse Ox
36.8 C 85 18 156/80 97
02/21/24 07:00 02/21/24 08:16 02/21/24 08:16 02/21/24 07:00 02/21/24 08:16
I&O
02/20/24 02/21/24 02/22/24
06:59 06:59 06:59
Intake Total 610 / 610 2580 / 2580
Balance 610 / 610 2580 / 2580
Review of Systems
-
Respiratory: Reports No Symptoms
Cardiac: Reports No Symptoms
Abdomen/GI: Reports No Symptoms
Physical Exam
-
General: Well Developed, Well Nourished, No Apparent Distress, Comfortable and Morbidly Obese
HEENT: Normocephalic
Respiratory: Clear to Auscultation and Non Labored Respirations
Cardiac: Regular Rhythm
GI: Soft
Neuro: Awake, Alert and Oriented
Psych: Calm
Data Reviewed
-
Diagnostic Radiology: Image personally visualized and interpreted and Report Reviewed by me
Labs: Labs Reviewed by me
--- NOTE | 2024-02-21 12:32 | CM ---
Alert awake oriented patient who lives residential at [facility]. Spoke with Apolonia admission at [facility] . Pt has a L BKA and uses a wheelchair at [facility]. Wheelchair is not here. Spoke with pt she requested a ambulance . Medical nec form
completed.She is assisted in ADLS.Pt requested for CM not to notified her family.
[facility]
PCP Marquis Sarkar
PLAN Return to [facility] report [phone] ext [phone] and fax [phone]
[2024-02-21 12:34] LABS: Glucose - Point of Care 277 mg/dl (70-99)
[2024-02-21] MEDS: NOVOLOG FLEXPEN-MODERATE RESISTANCE 5 UNITS SC (12:40)
[2024-02-21] MEDS: LASIX 20 MG PO (12:40)
[2024-02-21] MEDS: FERRLECIT 110 MG IV (13:21)
--- NOTE | 2024-02-22 23:23 | W.DCSUMMARY ---
Discharge Summary
Discharge Data
Date of Admission: 02/19/24
Date of Discharge: 02/21/24
-
Pending Results: No
Hospital Course
Principal Diagnosis:
Sepsis with multifocal pneumonia/community-acquired pneumonia
Resolved acute Hypoxemic Respiratory Insufficiency
Resolved acute kidney injury
Acute on Chronic Microcytic Anemia, received 1 unit PRBC transfusion this admission
Chronic Diagnoses:�
Insulin-dependent diabetes
Benign Hypertension
Bipolar Disorder
Hypothyroidism
Chronic Pain Syndrome
Gastroesophageal reflux disease
Morbid Obesity due to excess calories
Consultations:�
Pulmonary
Procedures:�
None
Clinical course:�
This is a 48 year F with past medical history as stated above, who presented with cough and shortness of breath.
Patient is a long-term resident at [facility]. Patient also reported intermittent fevers at the [place] for 2 days.
Problem 1:
Sepsis with multifocal pneumonia/community-acquired pneumonia.
This was associated with acute hypoxic respiratory insufficiency, which resolved.
Her CT chest from admission showed bilateral lower lobe pneumonia.
She received IV antibiotics cefepime and Flagyl during her hospital stay, and was discharged with Ceftin and Flagyl for 3 more days following discharge.
She was weaned off oxygen support.
Although she was recommended IDDSI Level 6 Soft and Bite Size diet per speech therapist, however, patient refused diet modification.
Problem 2:
Resolved acute kidney injury.
The patient serum creatinine down trended from 1.4 on admission to 0.8.
Her prior to admission Lasix was resumed on 02/21/2024.
Problem 3:
Acute on Chronic Microcytic Anemia.
She received 1 unit PRBC transfusion, which improved her hemoglobin from 6.6 to 8.1 on the day of discharge.
She received IV iron during her hospital stay.
As for the rest of her medical problems, they were stable during her hospital stay.
Discharge Plan
-
Patient Disposition: Penitentiary/SNF
Discharge Diagnosis/Procedures: Multifocal Pneumonia and chronic aspiration with aspiration pneumonia on admission; resolved acute hypoxic respiratory insufficiency; resolved acute kidney injury
Condition: Fair
Diet: As tolerated and Other diet
Additional Diets: mechanical soft and Bite Size diet if patient would agree
Activity: As tolerated
Driving Restrictions: As prior to admission
Referrals:
Jarett Sarkar, DO [Family Provider] - in less than 1 week
Additional Discharge Medication Instructions: Continue antibiotics Cefdinir and Flagyl for 3 more days
Prescriptions:
New
metronidazole 500 mg Tablet
500 mg PO TID 3 Days Qty: 9 0RF
cefdinir 300 mg capsule
300 mg PO BID 3 Days Qty: 6 0RF
Continued
ziprasidone HCl [Geodon] 80 mg Capsule
80 mg PO BID
metformin 500 mg Tablet
500 mg PO BIDWMEAL
sennosides [senna] 8.6 mg Tablet
17.2 mg PO HS
acetaminophen 325 mg Tablet
650 mg PO Q6H PRN (Reason: mild pain/temp>100.4)
lamotrigine [Lamictal] 200 mg Tablet
200 mg PO BID
ipratropium-albuterol 0.5 mg-3 mg(2.5 mg base)/3 mL Solution For Nebulization
3 ml INHALATION R Q4 PRN (Reason: sob)
polyethylene glycol 3350 [Miralax] 17 gram Powder In Packet
17 g PO DAILY
cetirizine [Zyrtec] 10 mg Tablet
10 mg PO HS
ondansetron HCl 4 mg Tablet
8 mg PO Q8H PRN (Reason: nausea)
loperamide [Imodium A-D] 2 mg Tablet
2 mg PO Q12H PRN (Reason: diarrhea)
hydroxyzine HCl 50 mg Tablet
100 mg PO HS
hydroxyzine HCl 50 mg Tablet
50 mg PO Q6H PRN (Reason: anxiety)
clonidine HCl 0.2 mg Tablet
0.2 mg PO Q12H
methocarbamol 750 mg Tablet
750 mg PO Q6H PRN (Reason: muscle spams)
magnesium hydroxide [Milk of Magnesia] 400 mg/5 mL Suspension
30 ml PO DAILY PRN (Reason: if no bm in 3 days)
levothyroxine 50 mcg Tablet
50 mcg PO DAILY
bisacodyl 10 mg Suppository
10 mg ND DAILY PRN (Reason: if MOM is ineffective)
pantoprazole 40 mg Tablet,Delayed Release (Dr/Ec)
40 mg PO BID
diphenhydramine HCl [Benadryl Allergy] 25 mg Tablet
25 mg PO Q12H PRN (Reason: itching)
Fleet Enema 19-7 gram/118 mL Enema
118 ml ND DAILY PRN (Reason: if suppository is ineffective)
docusate sodium [Colace] 100 mg Capsule
100 mg PO BID
folic acid 1 mg Tablet
1 mg PO DAILY
furosemide 20 mg Tablet
20 mg PO DAILY
epinephrine [EpiPen 2-David] 0.3 mg/0.3 mL Auto-Injector
0.3 mg IM ONCE PRN (Reason: allergic reaction to bees)
eucalyptus-menthol Lozenge
3.1 mg MUCOUS MEMBRANE Q1H PRN (Reason: cough)
Patient Comments:
02/18/2024: 'give one prn at night (up to 3)'
insulin lispro 100 unit/mL Insulin Pen
2 - 10 sliding scale dose SC AC
Patient Comments:
02/18/2024: if 151-200= 2; 201-250= 4; 251-300=6; 301-350= 8; 351-400= 10; call MD if BS <60 or >400
insulin lispro 100 unit/mL Insulin Pen
2 unit SC HS
insulin lispro 100 unit/mL Insulin Pen
5 unit SC AC
guaifenesin 400 mg Tablet
800 mg PO DAILY
Biofreeze (menthol) 5 % Adhesive Patch,Medicated
1 patch TOPICAL DAILY PRN (Reason: R shoulder/R Stump Pain)
sodium chloride 0.65 % Aerosol,[place]
1 spray INTRANASAL Q12H PRN (Reason: dry nasal)
pregabalin 150 mg Capsule
150 mg PO BID
insulin glargine [Lantus Solostar U-100 Insulin] 100 unit/mL (3 mL) Insulin Pen
24 unit SC HS
fenofibrate 54 mg Tablet
54 mg PO DAILY
melatonin 10 mg Tablet
20 mg PO HS
buprenorphine-naloxone [Suboxone] 4-1 mg Film
1 film BUCCAL BID
Patient Comments:
02/18/2024: for 7 days, until 02/22/24
Biofreeze (menthol) 4 % Gel
1 applic TOPICAL Q12H PRN (Reason: mid back pain/stump/LLE)
Ozempic 0.25 mg or 0.5 mg (2 mg/3 mL) Pen Injector
1 mg SC Q7D
Robitussin Mucus-Chest Congest
10 ml PO Q4H PRN (Reason: cough)
Discharge Orders:
Discharge Patient (As Directed); Ordered 02/21/24
Ordered By: Hoda Quintana
Discharge Date and Time
Discharge Date/Time: 02/21/24 15:06
Print Language: MONEGASQUE
== END 2024-02-21 15:06 | DRG 871 ==
LOC: 3 WEST ACU 02:19
PROVIDERS: Emergency Medicine; Internal Medicine; Physician Assistant; ADMITTING PHYSICIAN Hospitalist; ATTENDING PHYSICIAN Internal Medicine; CONSULT PHYSICIAN Internal Medicine Pulmonary Disease; EMERGENCY PHYSICIAN Emergency Medicine; FAMILY PHYSICIAN Internal Medicine
PROC: 30233N1 Transfusion of Nonautologous Red Blood Cells into Peripheral Vein, Percutaneous Approach (ICD-10-PCS; 2024-02-19)
DX: A41.9 Sepsis, unspecified organism (principal); J69.0 Pneumonitis due to inhalation of food and vomit; N17.9 Acute kidney failure, unspecified; Z68.43 Body mass index [BMI] 50.0-59.9, adult; I5A Non-ischemic myocardial injury (non-traumatic); D50.9 Iron deficiency anemia, unspecified; I10 Essential (primary) hypertension; F31.9 Bipolar disorder, unspecified; E03.9 Hypothyroidism, unspecified; G89.4 Chronic pain syndrome; K21.9 Gastro-esophageal reflux disease without esophagitis; E66.01 Morbid (severe) obesity due to excess calories; E11.9 Type 2 diabetes mellitus without complications; Z79.4 Long term (current) use of insulin
CPT/HCPCS: 71046; 71250; 80048; 80053; 82805; 82962; 83036; 83540; 83550; 83605; 83880; 84443; 84484; 85025; 85027; 86850; 86900; 86901; 86920; 87040; 87070; 87205; 87449; 87811; 87899; 92610; 93005; 93971; 94640; 94667; 94668; 97162; 97166; 99285; 99406; J2916; P9016

== ENCOUNTER 2024-03-04 01:46 | Observation (INO) | payer OTHER, SELFPAY ==
[2024-03-03 20:26] VITALS: BP 141/81
[2024-03-03 20:50] LABS: % Basophils 0.6 % (0-2); % Eosinophils 6.3 % (0-6); % Immature Granulocytes 0.2 % (0-0.5); % Lymphocytes 27.8 % (20.5-51.1); % Monocytes 8.4 % (1.7-9.3); % Neutrophils 56.7 % (42.2-75.2); Absolute Basophils 0.1 10^3/uL (0-0.2); Absolute Eosinophils 0.5 10^3/uL (0-0.7); Absolute Lymphocytes 2.3 10^3/uL (1.2-3.4); Absolute Monocytes 0.7 10^3/uL (0.1-0.6); Absolute Neutrophils 4.7 10^3/uL (1.4-6.5); Hematocrit 34.1 % (37.0-47.0); Mean Corp Hgb Conc. 29.3 g/dL (33.0-37.0); Mean Corpuscular Hgb 19.3 pg (27.0-31.0); Mean Corpuscular Volume 65.7 fL (81.0-99.0); Mean Platelet Volume 9.4 fL (7.4-10.4); Nucleated Red Blood Cells % 0 %; Platelet Count 403 10^3/uL (130-400); Red Blood Cell Count 5.19 10^6/uL (4.20-5.40); Red Cell Dist. Width 28.9 % (11.5-14.5); White Blood Cell Count 8.4 10^3/uL (4.8-10.8)
[2024-03-03 21:00] VITALS: BP 127/76
--- NOTE | 2024-03-03 21:04 | PHANOTE ---
med rec note- called [facility] [phone], service desk specialist answered said the nurse was on the phone and will call be back. hung up on me before i could give him the fax number and phone number
[2024-03-03 21:15] LABS: ALT (SGPT) 20 U/L (0-35); AST (SGOT) 47 U/L (14-36); Albumin 4.1 g/dl (3.5-5.0); Alkaline Phosphatase 118 U/L (38-126); Blood Urea Nitrogen 14 mg/dl (7-17); Calcium 10.1 mg/dl (8.4-10.2); Carbon Dioxide 29 mmol/L (22-30); Chloride 98 mmol/L (98-107); Glucose 135 mg/dl (70-99); Potassium 4.4 mmol/L (3.5-5.1); Sodium 138 mmol/L (135-145); Total Bilirubin 0.5 mg/dl (0.2-1.3); Total Protein 7.7 g/dl (6.3-8.2); eGFR > 60.00
[2024-03-03 21:37] LABS: Anisocytosis 2+; Hypochromasia 1+; Macrocytosis 2+; Normal RBC Morphology No; Ovalocytes 1+; Stomatocytes 2+; Target Cells Occasional
--- NOTE | 2024-03-03 21:53 | ED.GENMED ---
History of Present Illness
General
Chief Complaint: Breathing Problem
Source: patient
Exam Limitations: none
Time Seen by Provider: 03/03/24 21:52
Nursing documentation reviewed up to this point in time: agreed with
Travel History
Have you had any contact with someone who has COVID-19?: No
Do you have any symptoms of coronavirus? Fever > 100 degrees, chills, cough, shortness of breath, sore throat, loss of taste or smell, muscle aches, or headache?: No
History of Present Illness
History of Present Illness:
The patient is a 48-year-old female with a past medical history of insulin-dependent diabetes who reports persistent cough and shortness of breath. Reportedly, patient passed out prior to arrival. At this time, patient denies chest pain. She
reports that she just feels very short of breath. Patient is persistently coughing. She denies fever. Patient also appears sleepy and states she feels very tired.
Past History
Past History
ED Past Medical History: Asthma, GERD, HTN, Hypercholesterolemia, NIDDM, Hypothyroidism and Psychiatric (Anxiety, bipolar disorder)
ED Past Surgical History: Cholecystectomy, Gynecological (Tubel), Orthopedic (RBKA) and Other (Umbilical hernia repair, Gastric bypass sleeve)
Social History
Tobacco: Smoker
Alcohol: None
Drug: Other
Personal:
Living: long-term
Employment: Other
Family History
Family History: Other
Review of Systems
Review of Systems
Allergies reviewed?: Yes
All Other Systems: ROS reviewed and negative except as documented in HPI and ROS
Constitutional: Reports fatigue
EENT: Reports no symptoms
Respiratory: Reports cough and trouble breathing
Cardiac: Reports no symptoms
ABD/GI: Reports no symptoms
: Reports no symptoms
Musculoskeletal: Reports no symptoms
Skin: Reports no symptoms
Neurological: Reports no symptoms
Endocrine: Reports no symptoms
Hematologic/Lymphatic: Reports no symptoms
Psychiatric: Reports no symptoms
Phy Exam
Physical Exam
Physical Exam:
Physical Exam
General: Chronically ill-appearing. Appears sleepy.
Neck: supple. no meningeal signs. normal psoterior pharynx
Heart: s1/s2 regular rate and rhythm,
Lungs: Frequently coughing. Decreased breath sounds bilaterally.
Abdomen: normal bowel sounds. not tender. no CVAT
Neuro: alert and oriented but sleepy
Skin: no rash
Psychiatric: well kept. interactive and cooperative
Extremities: no edema.
Scores
Heart Failure Risk
Heart Failure Risk Score: Not Applicable
Course
Orders/Labs/Results
Orders:
Orders
03/03/24 20:36
Complete Blood Count/With Diff Urgent
Comprehensive Metabolic Panel Urgent
03/03/24 20:51
Electrocardiogram (*1) Urgent
Reason for Study: Shortness of Breath
03/03/24 20:52
EKG- Treatment ONCE
03/03/24 22:17
CR Chest - 2 Views Urgent
Comment:
Reason For Exam: cough
03/03/24 22:24
NT-proBNP Urgent
Troponin I Urgent
03/03/24 22:36
Venous Blood Gas Urgent
%Oxygen/Room Air: 2L
03/04/24 01:22
COVID-19 Antigen Urgent
Source: Nasal Swab
03/04/24 01:30
Admit/Transfer Patient As Directed
Co-Sign Provider:
Level of Care: Observation services
Assign to:: Telemetry
Physician / Group: Slick
Diagnosis: Cough, Hypoxemia
Reason for Telemetry: Arrhythmia
Date to Stop Telemetry: 03/07/24
Time to Stop Telemetry: 11:00
03/04/24 01:32
Code Status As Directed
Resuscitation Status: Full Code
03/07/24 11:00
DC Protocol for Telemetry ONCE
Abnormal Lab Results
03/03/24 03/03/24
20:36 22:36
Hgb 10.0 L g/dL
(12.0-16.0)
Hct 34.1 L %
(37.0-47.0)
MCV 65.7 L fL
(81.0-99.0)
MCH 19.3 L pg
(27.0-31.0)
MCHC 29.3 L g/dL
(33.0-37.0)
RDW 28.9 H %
(11.5-14.5)
Plt Count 403 H 10^3/uL
(130-400)
Absolute Monos (auto) 0.7 H 10^3/uL
(0.1-0.6)
Eosinophils % 6.3 H %
(0-6)
VBG pCO2 51 H mmHg
(35-48)
VBG pO2 55 H mmHg
(30-50)
VBG HCO3 30.2 H mmol/L
(22-27)
Glucose 135 H mg/dl
(70-99)
AST 47 H U/L
(14-36)
03/03/24 20:36
03/03/24 20:36
Vital Signs
Initial and Last Documented VS:
Initial Vital Signs
Temp Pulse Resp BP Pulse Ox
97.9 F 79 18 141/81 96
03/03/24 20:26 03/03/24 20:26 03/03/24 20:26 03/03/24 20:26 03/03/24 20:26
Last Documented Vital Signs
Temp Pulse Resp BP Pulse Ox
97.9 F 79 18 151/108 97
03/03/24 20:26 03/03/24 20:26 03/03/24 20:26 03/04/24 01:00 03/04/24 01:45
MDM/Problems Addressed
Differential Diagnosis Includes:
Pneumonia, COPD, PE
MDM/Problems Addressed:
Patient presents with subacute shortness of breath
Chronic conditions affecting care: HTN
Acute Exacerbation and/or Progression of Chronic Illness: HTN
*Radiology
Radiology exam reviewed: preliminary read by ED provider (Chest x-ray improved from prior chest x-ray.)
*Pulse Oximetry
Patient hypoxic: yes
*EKG
Interpreted by ED Provider?: Yes
Interpretation: abnormal
Comparison EKG: no comparison EKG present
Rate: normal
Rhythm: sinus
Forest: left axis deviation
Interval: normal interval
QRS Pattern: normal QRS
Ischemia: non-specific ST changes
*Household Personal Assistant Interpretation
Rate: normal
Interpretation: normal
Rhythm: sinus
*Critical Care Note
Total Time (30-74mins, 75-104mins- exclusive of procedures): Not Applicable
Data Reviewed
Review of Other/Old Records Reveals: Discharge Summary (Discharge summary reviewed from hospitalist from 02/2024 when patient was admitted for hypoxic respiratory failure and found to have pneumonia)
Source: patient
Patient Management
Discussion with other providers: Hospitalist
Escalation/DeEscalation of care consider admission/obs:
Due to patient's hypoxia and ongoing cough, patient will be admitted. Antibiotics held off for now given that patient is hemodynamically stable, afebrile and has no elevated white blood cell count.
ED Attending Note
-
Portions of this chart may have been created with voice recognition software.� Occasional wrong word or��sound alike� substitutions may have occurred due to the inherent limitations of voice recognition software.
Discharge Plan
Departure
Patient Disposition: Admit
Date of Disposition: 03/04/24
Time of Disposition: 00:51
Admit to: Med/Surg
Presentation/result/management discussed w/ accepting MD/DO: Hospitalist
Patient with high blood pressure during this ER visit?: Yes
Condition: Good
Covid-19: Negative COVID-19
Discharge Problem:
Acute respiratory failure with hypoxia
Interventions
Interventions:
*Risk Screen - Suicide Last Done: 03/03/24 20:34
*General Assessment Last Done: 03/03/24 20:33
*Neglect/Abuse Screening Last Done: 03/03/24 20:34
ED- Cardiac Assessment Last Done: 03/03/24 20:34
ED- Pulmonary Assessment Last Done: 03/03/24 20:34
[2024-03-03 22:00] VITALS: BP 127/71
[2024-03-03 22:44] LABS: Venous Blood Gas B.E. 4.3 mmol/L (-4 to +4); Venous Blood Gas HCO3 30.2 mmol/L (22-27); Venous Blood Gas O2 Sat % 85.7 %; Venous Blood Gas pCO2 51 mmHg (35-48); Venous Blood Gas pH 7.38 (7.32-7.43); Venous Blood Gas pO2 55 mmHg (30-50)
[2024-03-03 22:53] LABS: NT-proBNP 44.7 pg/ml; Troponin I 0.013 ng/ml
[2024-03-03 23:00] VITALS: BP 137/78
[2024-03-04] VITALS (11 sets, daily range): BP systolic 103–151; BP diastolic 51–108; PULSE 100; O2SAT 96; BMI 54.0
--- NOTE | 2024-03-04 01:39 | HPS.HSE ---
Family Physician
-
Family Physician: Jarett Sarkar, DO
Chief Complaint
-
Hypoxemia, Unresponsive
History of Present Illness
Patient is a 48y F with PMH significant for DM-II, bipolar disorder, hypertension and prior BKA who presents to ED for evaluation of hypoxemia and unresponsiveness. History obtained from the patient and ED staff. Patient states that she felt
good 'for about one day' after her recent admission for pneumonia. She states that her cough quickly recurred and has been persistent since. This evening, patient states that she was playing cards after dinner when she began to feel sleepy. She
gave her hand to a friend, took off her glasses and lay her had down on the table. The next thing she recalls is being administered oxygen and told she is being sent to the ED.
Patient notes that she apparently 'passed out' and staff at the [facility] were unable to wake her. Her oxygen levels were reportedly low and she was given supplemental O2 and transported to the ED for further evaluation.
In the ED, she is mostly resting comfortably / sleeping but does have some harsh paroxysms of cough.
She has had intermittent hypoxemia in the ED as well with values into the 80s at times.
Medical History
Past Medical History
Past Medical History: Reports Other
Additional Past Medical History:
DM-II
Hypertension
Osteomyelitis RLE
Bipolar Disorder
GERD
Chronic Pain / Opioid Use Disorder
Obesity
Hypothyroidism
Past Surgical History: Reports Other
Additional Past Surgical History:
Gastric Sleeve
Cholecystectomy
Tubal Ligation
RLE BKA
Social History
Tobacco: Former Smoker (No cigarettes the last 2 months. Approx 30 pack years total use.)
Alcohol: None
Living: Custodial
Family History
Family History: Not pertinent
Allergies / Home Medications
Allergies reflects when Allergies were last updated in [facility].
Home Medications with original date entered in [facility]
Allergy/Medication List:
Allergies
Allergy/AdvReac Type Severity Reaction Status Date / Time
aspirin Allergy Unknown Verified 03/03/24 20:32
barium iodide Allergy Unknown Verified 03/03/24 20:32
codeine Allergy Vomiting Verified 03/03/24 20:32
latex Allergy Rash Verified 03/03/24 20:32
Penicillins Allergy Unknown Verified 03/03/24 20:32
vancomycin Allergy Unknown Verified 03/03/24 20:32
Home Medications
Robitussin Mucus-Chest Congest 10 ml PO Q4H PRN cough 02/18/24
acetaminophen 325 mg tablet 650 mg PO Q6H PRN mild pain/temp>100.4 02/18/24
bisacodyl 10 mg rectal suppository 10 mg MO DAILY PRN if MOM is ineffective 02/18/24
buprenorphine 4 mg-naloxone 1 mg sublingual film (Suboxone) 1 film buccal BID opioid use disorder 02/18/24
cetirizine 10 mg tablet (Zyrtec) 10 mg PO HS Allergies 02/18/24
clonidine HCl 0.2 mg tablet 0.2 mg PO Q12H Blood Pressure 02/18/24
diphenhydramine HCl 25 mg tablet (Benadryl Allergy) 25 mg PO Q12H PRN itching 02/18/24
docusate sodium 100 mg capsule (Colace) 100 mg PO BID STOOL SOFTENER 02/18/24
epinephrine 0.3 mg/0.3 mL injection, auto-injector (EpiPen 2-David) 0.3 mg IM ONCE PRN allergic reaction to bees 02/18/24
eucalyptus-menthol oral mucosal lozenge 3.1 mg mucous membrane Q1H PRN cough 02/18/24
fenofibrate 54 mg tablet 54 mg PO DAILY HIGH TRIGLYCERIDE 02/18/24
folic acid 1 mg tablet 1 mg PO DAILY Supplement 02/18/24
furosemide 20 mg tablet 20 mg PO DAILY Fluid Retention/Swelling 02/18/24
guaifenesin 400 mg tablet 800 mg PO DAILY Congestion 02/18/24
hydroxyzine HCl 50 mg tablet 50 mg PO Q6H PRN anxiety 02/18/24
hydroxyzine HCl 50 mg tablet 100 mg PO HS Mental Health/Anxiety 02/18/24
insulin glargine 100 unit/mL (3 mL) subcutaneous pen (Lantus Solostar U-100 Insulin) 24 unit SC HS Diabetes 02/18/24
insulin lispro 100 unit/mL subcutaneous pen 2 - 10 sliding scale dose SC AC Diabetes 02/18/24
insulin lispro 100 unit/mL subcutaneous pen 2 unit SC HS Diabetes 02/18/24
insulin lispro 100 unit/mL subcutaneous pen 5 unit SC AC Diabetes 02/18/24
ipratropium 0.5 mg-albuterol 3 mg (2.5 mg base)/3 mL nebulization soln 3 ml inhalation R Q4 PRN sob 02/18/24
lamotrigine 200 mg tablet (Lamictal) 200 mg PO BID Mental Health/Anxiety 02/18/24
levothyroxine 50 mcg tablet 50 mcg PO DAILY Thyroid 02/18/24
loperamide 2 mg tablet (Imodium A-D) 2 mg PO Q12H PRN diarrhea 02/18/24
magnesium hydroxide 400 mg/5 mL oral suspension (Milk of Magnesia) 30 ml PO DAILY PRN if no bm in 3 days 02/18/24
melatonin 10 mg tablet 20 mg PO HS Sleep 02/18/24
menthol 4 % topical gel (Biofreeze (menthol)) 1 applic topical Q12H PRN mid back pain/stump/LLE 02/18/24
menthol 5 % topical patch (Biofreeze (menthol)) 1 patch topical DAILY PRN R shoulder/R Stump Pain 02/18/24
metformin 500 mg tablet 500 mg PO BIDWMEAL Diabetes 02/18/24
methocarbamol 750 mg tablet 750 mg PO Q6H PRN muscle spams 02/18/24
ondansetron HCl 4 mg tablet 8 mg PO Q8H PRN nausea 02/18/24
pantoprazole 40 mg tablet,delayed release 40 mg PO BID GERD 02/18/24
polyethylene glycol 3350 17 gram oral powder packet (Miralax) 17 g PO DAILY Gastrointestinal Issue 02/18/24
pregabalin 150 mg capsule 150 mg PO BID Pain 02/18/24
semaglutide 0.25 mg or 0.5 mg (2 mg/3 mL) subcutaneous pen injector (Ozempic) 1 mg SC Q7D Diabetes 02/18/24
sennosides 8.6 mg tablet (senna) 17.2 mg PO HS Constipation 02/18/24
sodium chloride 0.65 % nasal spray aerosol 1 spray intranasal Q12H PRN dry nasal 02/18/24
sodium phosphates 19 gram-7 gram/118 mL enema (Fleet Enema) 118 ml MO DAILY PRN if suppository is ineffective 02/18/24
ziprasidone HCl 80 mg capsule (Geodon) 80 mg PO BID mental health 02/18/24
Review of Systems
-
History Source: Patient
A 12 point ROS was completed and negative except as noted: Yes
Constitutional: Reports Fatigue; Denies Fever or Chills
EENT: Denies Sore Throat
Respiratory: Reports Cough and Trouble Breathing; Denies Hemoptysis
Cardiac: Reports Syncope; Denies Chest Pain or Palpitations
Abdomen/GI: Denies Abdominal Pain, Nausea, Vomiting or Diarrhea
: Denies Dysuria, Frequency or Flank Pain
Musculoskeletal: Reports Edema; Denies Joint Pain
Skin: Reports Other (LLE redness)
Psych: Denies Depression or Anxiety
Physical Exam
Vital Signs
Vital Signs
Temp Pulse Resp BP Pulse Ox
97.9 F 79 18 151/108 97
03/03/24 20:26 03/03/24 20:26 03/03/24 20:26 03/04/24 01:00 03/04/24 01:00
Physical Exam
General: Other (48y F in no acute distress.)
HEENT: Moist mucous membranes, PERRLA and Other (Thick neck.)
Respiratory: Other (Cough with deep inspiration.)
Cardiac: S1/S2
GI: Soft, Non Tender, Non Distended and Normal Bowel Sounds
Musculoskeletal: Other (RLE BKA. Stump intact. LLE with erythema and tenderness)
Neuro: AO x 3 and Nonfocal/grossly intact
Laboratory Results
-
03/03/24 20:36
03/03/24 20:36
Laboratory Results
Total Bilirubin 0.5 mg/dl (0.2-1.3) 03/03/24 20:36
AST 47 U/L (14-36) H 03/03/24 20:36
ALT 20 U/L (0-35) 03/03/24 20:36
Alkaline Phosphatase 118 U/L (38-126) 03/03/24 20:36
Troponin I 0.013 ng/ml 03/03/24 22:24
Impression/Plan
-
A/P: Patient is a 48y F with PMH significant for hypertension, DM-II and obesity who presents to ED for evaluation of hypoxemia and unresponsiveness.
Acute TME / Unresponsive Episode
- Observe overnight for further evaluation and treatment.
- Patient is on multiple sedating meds which we will again hold during her hospitalization.
- Would consider remaining off of these at discharge.
- Sedation likely contributes to TME as well as intermittent hypoxemia / risk for aspiration.
Cough / Recent Pneumonia
Hypoxemia
- CXR appears significantly improved from prior.
- Afebrile, no leukocytosis, etc.
- Would observe off of any additional abx for now.
- Supportive care including nebs, ICS, mucolytics, etc.
- Consider Pulm re-evaluation if symptoms worsen or persist.
- Suspect post-infectious cough versus recurrent and repeated aspiration.
Aspiration
- Patient has been advised soft diet with thin liquids but has repeatedly refused this (as well as DM / carb-controlled diets).
- Aspiration precautions.
- Would continue to encourage adherence to Speech recommendations.
Chronic Microcytic Anemia
- Much improved from prior / back to known baseline.
- Received one unit PRBCs during recent hospital stay.
- Continue to follow for changes.
DM-II
- Stable. Continue basal : bolus insulin regimen.
- Follow glucose and cover with SSI as needed.
Bipolar Disorder
- Stable. Continue current psychotropic med regimen.
Hypothyroidism
- Stable. Continue current T4 supplementation.
- Recent TFTs were normal.
Chronic Pain Syndrome
- Stable. Continue Lyrica, etc.
- Try to minimize sedating meds as noted above.
- Follow for any changes / worsening symptoms.
GERD
- Stable. Continue daily PPI.
Morbid Obesity due to excess calories
- Affects all aspects of care.
- Encourage healthy diet with goal of weight reduction.
DVT Prophylaxis: Lovenox
Code Status: Full
[2024-03-04 01:45] LABS: COVID-19 Antigen Negative (Negative)
--- NOTE | 2024-03-04 04:30 | PTCARENOTE ---
Pt. admitted from E.D., AAO x 3, vs stable, 96% 3L 02, pt. pulled over from stretcher, call downey within reach.
[2024-03-04] MEDS: SYNTHROID 50 MCG PO (05:15)
[2024-03-04 07:12] LABS: Glucose - Point of Care 178 mg/dl (70-99)
[2024-03-04 07:18] LABS: Hematocrit 32.4 % (37.0-47.0); Hemoglobin 9.2 g/dL (12.0-16.0); Mean Corp Hgb Conc. 28.4 g/dL (33.0-37.0); Mean Corpuscular Volume 67.1 fL (81.0-99.0); Mean Platelet Volume 9.4 fL (7.4-10.4); Platelet Count 356 10^3/uL (130-400); Red Blood Cell Count 4.83 10^6/uL (4.20-5.40); Red Cell Dist. Width 28.2 % (11.5-14.5); White Blood Cell Count 7.8 10^3/uL (4.8-10.8)
[2024-03-04] MEDS: DUONEB 3 ML INH ×4 (07:30→19:23)
[2024-03-04] MEDS: PULMICORT 0.25 MG INH ×2 (07:31→19:23)
[2024-03-04 07:40] LABS: Blood Urea Nitrogen 13 mg/dl (7-17); Calcium 9.3 mg/dl (8.4-10.2); Carbon Dioxide 28 mmol/L (22-30); Chloride 100 mmol/L (98-107); Estimated Creatinine Clearance > 125 ml/min; Glucose 142 mg/dl (70-99); Potassium 4.2 mmol/L (3.5-5.1); Sodium 135 mmol/L (135-145); eGFR > 60.00
[2024-03-04] MEDS: PROTONIX 40 MG PO ×2 (08:33→21:14)
[2024-03-04] MEDS: LAMICTAL 200 MG PO ×2 (08:33→21:11)
[2024-03-04] MEDS: LASIX 20 MG PO (08:34)
[2024-03-04] MEDS: MUCINEX 1200 MG PO (08:34)
[2024-03-04] MEDS: LYRICA 150 MG PO ×2 (08:34→21:13)
[2024-03-04] MEDS: CATAPRES 0.200000000000000011 MG PO ×2 (08:35→21:14)
[2024-03-04] MEDS: NOVOLOG FLEXPEN-LOW RESISTANCE 1 UNITS SC (09:46)
[2024-03-04] MEDS: NOVOLOG FLEXPEN 5 UNITS SC ×2 (09:46→18:11)
[2024-03-04 11:52] LABS: Glucose - Point of Care 297 mg/dl (70-99)
--- NOTE | 2024-03-04 12:47 | W.PN.UPDATE ---
Update Note
Progress Note Update
Patient seen and examined after post midnight admission with speech therapist Lakisha Suarez present at bedside. VSS (remains on 3L NC O2 which, at the time of my exam, had been temporarily removed). NAD, awake and alert, RRR, normal S1/S2, CTAB,
CN2-12 intact. Chest x-ray shows clear lungs. Case discussed with speech therapy. She has not fully completed her evaluation yet but she is concerned that the patient may have an esophageal disorder. Check esophagram. c/s pulm for recurrent
hypoxemia.
--- NOTE | 2024-03-04 13:11 | PTOTSP ---
ST Acute Care Evaluation
Pt currently presents with oral and pharyngeal parameters that are within fairly functional limits for safe PO intake of all solids and liquids. Pt demonstrates good insight to what she can and cannot handle with and without her dentures and has
reported that she avoids things she cannot chew. Pt demonstrates symptoms at bedside (i.e., belching after multiple sequential sips of liquids; feeling of fullness after only a few bites of food) and reports events at home that are concerning for
esophageal dysfunction (e.g., needing to stay upright for hours after eating, experiencing bilious vomit at times, and regurgitation events after just consuming liquids that reach her mouth and sometimes come out of her nose), perhaps attributable
to GERD and hx of gastric sleeve sx.
Recommendations:
- UPGRADE pt's diet to REGULAR SOLIDS and THIN LIQUIDS with meds as tolerated.
- General aspiration precautions.
- GI/reflux precautions: small, frequent meals; chew foods thoroughly; alternate liquids and solids; slow intake rate; small bites/sips; stop eating when feeling fullness; HOB upright for all PO intake and for AT LEAST an hour after PO intake;
adherence to PPI BID.
- Highly recommend GI consult for esophagram and/or motility study; however, pt reports allergy to barium?
- CATH LAB TECH will continue to follow to ensure pt is safely consuming the least restrictive diet consistencies and recalling/adhering to GI/reflux precautions.
[2024-03-04] MEDS: SUBUTEX 4 MG SL ×2 (14:16→21:13)
[2024-03-04] MEDS: NOVOLOG FLEXPEN SC (14:37)
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
[2024-03-04 16:36] LABS: Glucose - Point of Care 182 mg/dl (70-99)
[2024-03-04] MEDS: LOVENOX 40 MG SC (17:13)
[2024-03-04] MEDS: NOVOLOG FLEXPEN-HIGH RESISTANCE 2 UNITS SC (18:12)
[2024-03-04] MEDS: NOVOLOG FLEXPEN-LOW RESISTANCE SC (18:29)
--- NOTE | 2024-03-04 18:32 | CON.PUL ---
Consultation
Consultation Request
Date/Time Consultation Requested: 03/04/2024
Date/Time Consultation Performed: 03/04/2024
Requesting Provider: Dr. Rivera
Performing Provider: Dr. Dino Dominique
Reason for Consultation: Acute hypoxemic respiratory insufficiency
Medical History
-
History of Present Illness:
48-year-old woman with multiple medical problems including obesity, diabetes mellitus type 2, leg amputation, bipolar disorder, high risk for aspiration brought into the emergency room for hypoxemia and found unresponsive.
Apparently after discharge from the hospital for cough quickly recur.
Apparently in the group home she was less responsive, she was found to be hypoxemic. They were not able to arouse her. She was sent to the emergency room for evaluation.
Patient had intermittent hypoxemia in the emergency room with pulse ox down to 80%.
Past Medical History
Past Medical History: Other ( See assessment and plan section)
Social History
Tobacco: Former Smoker ([id number] history. Quit about 2 months ago.)
Alcohol: None
Living: Retirement
Family History
Family History: Reviewed & Not Pertinent
Allergies / Home Medications
Allergies
Allergy/AdvReac Type Severity Reaction Status Date / Time
aspirin Allergy Unknown Verified 03/03/24 20:32
barium iodide Allergy Unknown Verified 03/03/24 20:32
codeine Allergy Vomiting Verified 03/03/24 20:32
latex Allergy Rash Verified 03/03/24 20:32
Penicillins Allergy Unknown Verified 03/03/24 20:32
vancomycin Allergy Unknown Verified 03/03/24 20:32
Home Medications
�Medication �Instructions �Recorded �Confirmed �Last Taken �Type
Robitussin Mucus-Chest Congest 10 ml PO Q4H PRN cough 02/18/24 03/04/24 02/19/24 History
acetaminophen 325 mg tablet 650 mg PO Q6H PRN mild 02/18/24 03/04/24 03/03/24 00:00 History
pain/temp>100.4
buprenorphine 4 mg-naloxone 1 mg 1 film buccal BID opioid use 02/18/24 03/04/24 03/03/24 17:00 History
sublingual film (Suboxone) disorder
cetirizine 10 mg tablet (Zyrtec) 10 mg PO HS Allergies 02/18/24 03/04/24 03/02/24 22:00 History
clonidine HCl 0.2 mg tablet 0.2 mg PO Q12H Blood Pressure 02/18/24 03/04/24 03/03/24 08:00 History
diphenhydramine HCl 25 mg tablet 25 mg PO Q12H PRN itching 02/18/24 03/04/24 Unknown History
(Benadryl Allergy)
docusate sodium 100 mg capsule 100 mg PO BID STOOL SOFTENER 02/18/24 03/04/24 Unknown History
(Colace)
epinephrine 0.3 mg/0.3 mL 0.3 mg IM ONCE PRN allergic 02/18/24 03/04/24 Unknown History
injection, auto-injector (EpiPen reaction to bees
2-David)
eucalyptus-menthol oral mucosal 3.1 mg mucous membrane Q1H PRN 02/18/24 03/04/24 03/03/24 17:00 History
lozenge cough
fenofibrate 54 mg tablet 54 mg PO DAILY HIGH TRIGLYCERIDE 02/18/24 03/04/24 Unknown History
folic acid 1 mg tablet 1 mg PO DAILY Supplement 02/18/24 03/04/24 03/03/24 08:00 History
furosemide 20 mg tablet 20 mg PO DAILY Fluid 02/18/24 03/04/24 03/03/24 00:00 History
Retention/Swelling
guaifenesin 400 mg tablet 800 mg PO DAILY Congestion 02/18/24 03/04/24 02/25/24 12:00 History
hydroxyzine HCl 50 mg tablet 50 mg PO Q6H PRN anxiety 02/18/24 03/04/24 03/03/24 08:00 History
hydroxyzine HCl 50 mg tablet 100 mg PO HS Mental Health/Anxiety 02/18/24 03/04/24 03/02/24 22:00 History
insulin glargine 100 unit/mL (3 24 unit SC HS Diabetes 02/18/24 03/04/24 03/02/24 22:00 History
mL) subcutaneous pen (Lantus
Solostar U-100 Insulin)
insulin lispro 100 unit/mL 2 - 10 sliding scale dose SC AC 02/18/24 03/04/24 03/03/24 08:00 History
subcutaneous pen Diabetes
insulin lispro 100 unit/mL 2 unit SC HS Diabetes 02/18/24 03/04/24 03/02/24 22:00 History
subcutaneous pen
insulin lispro 100 unit/mL 5 unit SC AC Diabetes 02/18/24 03/04/24 03/03/24 17:00 History
subcutaneous pen
ipratropium 0.5 mg-albuterol 3 mg 3 ml inhalation R Q4 PRN sob 02/18/24 03/04/24 Unknown History
(2.5 mg base)/3 mL nebulization
soln
lamotrigine 200 mg tablet 200 mg PO BID Mental Health/Anxiety 02/18/24 03/04/24 03/03/24 17:00 History
(Lamictal)
levothyroxine 50 mcg tablet 50 mcg PO DAILY Thyroid 02/18/24 03/04/24 03/03/24 05:00 History
loperamide 2 mg tablet (Imodium 2 mg PO Q12H PRN diarrhea 02/18/24 03/04/24 03/02/24 22:00 History
A-D)
magnesium hydroxide 400 mg/5 mL 30 ml PO DAILY PRN if no bm in 3 02/18/24 03/04/24 Unknown History
oral suspension (Milk of Magnesia) days
melatonin 10 mg tablet 20 mg PO HS Sleep 02/18/24 03/04/24 03/02/24 22:00 History
menthol 4 % topical gel (Biofreeze 1 applic topical Q12H PRN mid back 02/18/24 03/04/24 02/25/24 22:00 History
(menthol)) pain/stump/LLE
metformin 500 mg tablet 500 mg PO BIDWMEAL Diabetes 02/18/24 03/04/24 03/03/24 17:00 History
methocarbamol 750 mg tablet 750 mg PO Q6H PRN muscle spams 02/18/24 03/04/24 03/02/24 00:00 History
ondansetron HCl 4 mg tablet 8 mg PO Q8H PRN nausea 02/18/24 03/04/24 03/02/24 03:00 History
pantoprazole 40 mg tablet,delayed 40 mg PO BID GERD 02/18/24 03/04/24 03/03/24 08:00 History
release
polyethylene glycol 3350 17 gram 17 g PO DAILY Gastrointestinal 02/18/24 03/04/24 Unknown History
oral powder packet (Miralax) Issue
pregabalin 150 mg capsule 150 mg PO BID Pain 02/18/24 03/04/24 03/03/24 17:00 History
semaglutide 0.25 mg or 0.5 mg (2 1 mg SC Q7D Diabetes 02/18/24 03/04/24 02/29/24 08:00 History
mg/3 mL) subcutaneous pen injector
(Ozempic)
sennosides 8.6 mg tablet (senna) 17.2 mg PO HS Constipation 02/18/24 03/04/24 Unknown History
sodium chloride 0.65 % nasal spray 1 spray intranasal Q12H PRN dry 02/18/24 03/04/24 Unknown History
aerosol nasal
sodium phosphates 19 gram-7 118 ml [place] DAILY PRN if suppository 02/18/24 03/04/24 Unknown History
gram/118 mL enema (Fleet Enema) is ineffective
ziprasidone HCl 80 mg capsule 80 mg PO BID mental health 02/18/24 03/04/24 03/03/24 17:00 History
(Geodon)
Review of Systems
-
History Source: Patient
All other systems: Negative unless noted
Vitals / Labs / Diagnostic Testing
Vital Signs
Temp Pulse Resp BP Pulse Ox
98.1 F 72 18 117/74 100
03/04/24 15:57 03/04/24 15:57 03/04/24 15:57 03/04/24 15:57 03/04/24 15:57
Lab Data
03/04/24 06:48
03/04/24 06:48
Diagnostic Testing:
Physical Exam
-
HEENT: Normocephalic
Cardiovascular: S1/S2
Respiratory: Clear and Non-Labored Respirations
GI: Soft and Non Distended
Neurology: Awake
Skin: Warm
General: Respiratory Distress (n)
Assessment
-
48-year-old woman with multiple comorbidities noted. Recently discharged from the hospital for possible aspiration pneumonia. Refused to undergo modified diet. Back to group home and quickly her comfort care. Apparently became more responsive
or less responsive with low oxygen levels. Sent for evaluation. I was consulted on 03/04/2024 for hypoxemia.
Chronic hypoxemic respiratory failure. Currently on 3 L
Chest x-ray 03/04/2024: Clear lungs. Improve aeration compared to prior x-rays.
CT chest 02/19/2024:Bilateral pneumonia, greatest within the lower lobes. In the right lower lobe, there are cavitary nodular lesions, compatible with a component of cavitary pneumonia.
No evidence for associated pleural effusion.Fatty infiltration of the liver.
Negative proBNP/negative troponin
Negative COVID
Postinfectious cough
Suspect chronic aspiration
Conditions present prior admission:
Admission to [facility] 02/2024: Possible pneumonia with hypoxemia. She was considered high risk for aspiration at that time.
Speech evaluation 02-18 with clinical signs of OP dysphagia, considered at high risk for aspiration, rec level 6 soft diet and thin liquids but patient refused
Would consider VSE but body habitus could make it difficult
Type 2 diabetes
Hypertension
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
Bipolar disorder
GERD
Chronic pain/opiate use disorder
Obesity
Hypothyroidism
Gastric sleeve
Cholecystectomy
Tubal ligation
Former smoker quit several months ago [id number] history
Assessment and plan:
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
Patient has refused modified diet in the past.
Speech evaluation noted. I agree with esophageal evaluation.
-
Sedative medications also contributing to hypoventilation, and decreased responsiveness at times. Medication will need to be adjusted.
Likely patient has some degree of hypoventilation due to obesity and possibly obstructive sleep apnea.
Obesity and itself likely causing subsegmental atelectasis with sedation and causing intermittent aspiration.
-
Recent CT chest in February 2024: Showed bibasilar infiltrates. Right lower lobe possibly bronchiectasis with cavitary lesions. Likely sequela of chronic aspiration.
Chest x-ray this admission with no worsening infiltrates.
Actually there is better aeration to my view.
-
For her cough recommend symptomatic management
her lung exam is clear.
Secretion clearance interventions, Acapella device will be ordered.
Incentive spirometry encouraged.
Antitussive if needed. Order will be placed.
Continue DuoNeb for secretion clearance. Can continue upon discharge until symptoms clear
Continue Pulmicort nebulizer twice a day. Can continue upon discharge until symptoms clear
Separate call lozenges
Tesluis manuelon Perle
No need for further antibiotics
-
Will need outpatient evaluation for sleep if able to make it to the office
Weight loss will be helpful
Advised to adhere to modified diet. She refused in the past.
.
May need temporary supplemental oxygen upon discharge. Likely will be a recurrent issue given her morbid obesity.
-
Will follow
[2024-03-04] MEDS: MELATONIN 20 MG PO (21:12)
[2024-03-04] MEDS: TESSALON PERLES 200 MG PO (21:13)
[2024-03-04] MEDS: MUCINEX 600 MG PO (21:14)
[2024-03-04] MEDS: ZYRTEC 10 MG PO (21:16)
[2024-03-04] MEDS: LATUDA 40 MG PO (21:17)
[2024-03-04 21:32] LABS: Glucose - Point of Care 248 mg/dl (70-99)
[2024-03-04] MEDS: LANTUS 0.239999999999999991 UNITS SC (22:02)
[2024-03-05 03:44] VITALS: BP 94/45
[2024-03-05 06:00] VITALS: BMI 54.0
[2024-03-05] MEDS: SYNTHROID 50 MCG PO (06:07)
[2024-03-05] MEDS: DUONEB 3 ML INH ×4 (07:32→19:57)
[2024-03-05] MEDS: PULMICORT 0.25 MG INH ×2 (07:32→19:57)
[2024-03-05 08:00] VITALS: BP 126/72
[2024-03-05] MEDS: TESSALON PERLES 200 MG PO ×3 (08:18→21:40)
[2024-03-05] MEDS: LYRICA 150 MG PO ×2 (08:19→20:23)
[2024-03-05] MEDS: SUBUTEX 4 MG SL ×2 (08:19→20:23)
[2024-03-05] MEDS: LATUDA 40 MG PO ×2 (08:20→20:23)
[2024-03-05] MEDS: PROTONIX 40 MG PO ×2 (08:20→20:23)
[2024-03-05] MEDS: LAMICTAL 200 MG PO ×2 (08:20→20:22)
[2024-03-05] MEDS: MUCINEX 600 MG PO ×2 (08:20→20:23)
[2024-03-05] MEDS: LASIX 20 MG PO (08:21)
[2024-03-05] MEDS: CATAPRES 0.200000000000000011 MG PO ×2 (08:21→20:23)
[2024-03-05 08:59] LABS: Glucose - Point of Care 204 mg/dl (70-99)
--- NOTE | 2024-03-05 08:59 | W.PN.HOSP.TC ---
Addendum entered and electronically signed by Mitch Rivera MD 03/05/24 10:35:
Total time spent on d/c = 35 min. This included today's physical exam, progress note, review of laboratory and diagnostic data, preparation of discharge documents and prescriptions, and discussions about the pt's hospital course and discharge plan
with the patient and other emergency medicine medical director involved in the patient's care.
Original Note:
Today's Communication/Plan
-
d/c if QTc is not worse than prior
Assessment / Plan
Assessment / Plan
Pt seen and examined with nurse Ayana Sanabria present at bedside:
Gen: NAD, Awake and alert
Eyes: EOMI, PERRLA, no scleral icterus.
Neck: supple.
CV: RRR, +S1/S2, no m/r/g.
Resp: CTAB, no rales, wheezes, or rhonchi.
Abd: +BS, soft, NT, ND
Skin: No rashes.
Neuro: CN 2-12 intact, non-focal.
Psych: angry/agitated
Acute on chronic hypoxemic respiratory failure:
-presented with hypoxemia and unresponsive episode (acute metabolic encephalopathy)
-Appreciate pulmonary. Discussed at length with Dr. Dominique on 03/05/24. Patient likely has nocturnal hypoxemia at baseline. Chest x-ray shows evidence of bronchiectasis in the bases consistent with microaspiration. Her acute on chronic hypoxemic
respiratory failure is likely due to microaspiration in the setting of morbid obesity and hypoventilation (AB/OHS) as well as sedentary lifestyle. Dr. Dominique is OK with discharge.
-On 3L NC O2, wean as tolerated at NH
-Esophagram ordered. Pt states allergy to barium (which I believe is erroneous) and is refusing the study
-regular consistency diet as per speech eval
Chronic Microcytic Anemia: Hb stable
DM2: cont Lantus/Premeal aspart/SSI/accuchecks. Diabetic diet.
Bipolar Disorder: Geodon stopped with QTc > 500ms. Appreciate psych. Latyobany started. Check ECG prior to discharge.
Hypothyroidism: cont Levoxyl
Chronic Pain Syndrome: Cont Lyrica/Subutex
GERD: cont PPI
Morbid Obesity due to excess calories: Encourage weight loss, affects all aspects of care
FULL/ Lovenox
Anticipated Discharge: Today
Subjective/Interval History
-
Date of Service: March 05, 2024
Patient yelling at me that she wants a regular diet.
Objective Data
-
Vital Signs:
Vital Signs
Temp Pulse Resp BP Pulse Ox
97.6 F 65 18 126/72 98
03/05/24 08:00 03/05/24 08:00 03/05/24 08:00 03/05/24 08:00 03/05/24 08:00
I&O
03/04/24 03/05/24 03/06/24
06:59 06:59 06:59
Intake Total 840 / 840
Balance 840 / 840
[2024-03-05] MEDS: NOVOLOG FLEXPEN 5 UNITS SC ×2 (09:05→16:50)
[2024-03-05] MEDS: NOVOLOG FLEXPEN-HIGH RESISTANCE 4 UNITS SC (09:06)
--- NOTE | 2024-03-05 10:09 | CM ---
Patient from [facility] with Hx bipolar DO, right BKA with Dx Multifocal Pneumonia, aspiration pneumonia, anemia. O2 3L. PT & OT Evals; No skilled PT/OT needed.
Spoke with Cherelle, nurse [facility]; the patient is A/O, assisted with ADLs and is w/c bound. She received her new prosthetic leg about 10 days ago however has not been using it and is still non-ambulatory. The ph for report
[phone] x [phone], fax [phone].
Spoke with patient who agrees to returning to [facility] today by ambulance. The patient conveyed she was upset because she could not get her esophagram here, and stated she already discussed this with Dr Rivera.
Plan return to [facility] today by ambulance.
--- NOTE | 2024-03-05 11:29 | W.PN.UPDATE ---
Update Note
Progress Note Update
patient seen briefly . spoke with nursing. patient is returning to [place] today. she tells me it is bc she will not have espophagram and nursing reports issues w healthly diet. from psych perspective she should continue w latuda which does
not cause weight gain . there do not seem to be a negative impact thus far from dc of pratibha.
[2024-03-05] MEDS: NOVOLOG FLEXPEN SC (12:03)
[2024-03-05] MEDS: NOVOLOG FLEXPEN-HIGH RESISTANCE SC (12:04)
--- NOTE | 2024-03-05 13:30 | W.DCSUMMARY ---
Discharge Summary
Discharge Data
Date of Admission: 03/04/24
Date of Discharge: 03/05/24
-
Pending Results: No
Hospital Course
Primary diagnoses:
Acute on chronic hypoxemic respiratory failure likely due to microaspiration in the setting of morbid obesity and hypoventilation (obstructive sleep apnea/obesity hypoventilation syndrome) as well as sedentary lifestyle
Acute metabolic encephalopathy
Prolonged QTc
Secondary diagnoses:
Obstructive sleep apnea
Obesity hypoventilation syndrome
Chronic Microcytic Anemia
Type 2 diabetes mellitus
Bipolar Disorder
Hypothyroidism
Chronic Pain Syndrome
Gastroesophageal reflux disease
Morbid Obesity due to excess calories
Consultants:
Psychiatry
Pulmonary
Imaging:
CXR: Clear lungs. Improved aeration compared to prior chest x-ray.
48-year-old female who presented with an unresponsive episode and hypoxemia as outlined in the H&P done on admission. Hospital course or problems:
Acute on chronic hypoxemic respiratory failure: She presented with hypoxemia and unresponsive episode (acute metabolic encephalopathy). She was seen in consultation by speech and a regular consistency diet was recommended. Patient was seen in
consultation by pulmonary and the case was discussed at length with Dr. Dominique on 03/05/24. The patient likely has nocturnal hypoxemia at baseline. Chest x-ray shows evidence of bronchiectasis in the bases consistent with microaspiration. Her
acute on chronic hypoxemic respiratory failure was likely due to microaspiration in the setting of morbid obesity and hypoventilation (AB/OHS) as well as sedentary lifestyle. At the time of discharge the patient was on 3L NC O2 which can be weaned
as tolerated at her [facility]dc. An esophagram was ordered but the patient refused to the esophagram as she reports an allergy to barium.
Prolonged QTc: The patient's Geodon was stopped and her QTc improved from 544ms to 450ms. She was placed on Latuda.
Discharge Plan
-
Patient Disposition: [facility]/SNF
Discharge Diagnosis/Procedures: Acute on chronic hypoxemic respiratory failure likely due to microaspiration in the setting of morbid obesity and hypoventilation (obstructive sleep apnea/obesity hypoventilation syndrome) as well as sedentary
lifestyle
Condition: Good
Diet: Diabetic, Carb Controlled
Activity: As tolerated
Driving Restrictions: No driving
Specialty Instructions: Weigh Daily- Call MD for wt gain/loss 3 lbs overnight/5 lbs in 1 week
Referrals:
Jarett Sarkar, DO [Family Provider] - in less than 1 week
Prescriptions:
New
lurasidone [Latuda] 40 mg Tablet
40 mg PO BID Qty: 0 0RF
Continued
metformin 500 mg Tablet
500 mg PO BIDWMEAL
sennosides [senna] 8.6 mg Tablet
17.2 mg PO HS
acetaminophen 325 mg Tablet
650 mg PO Q6H PRN (Reason: mild pain/temp>100.4)
lamotrigine [Lamictal] 200 mg Tablet
200 mg PO BID
ipratropium-albuterol 0.5 mg-3 mg(2.5 mg base)/3 mL Solution For Nebulization
3 ml INHALATION R Q4 PRN (Reason: sob)
polyethylene glycol 3350 [Miralax] 17 gram Powder In Packet
17 g PO DAILY
cetirizine [Zyrtec] 10 mg Tablet
10 mg PO HS
ondansetron HCl 4 mg Tablet
8 mg PO Q8H PRN (Reason: nausea)
loperamide [Imodium A-D] 2 mg Tablet
2 mg PO Q12H PRN (Reason: diarrhea)
clonidine HCl 0.2 mg Tablet
0.2 mg PO Q12H
methocarbamol 750 mg Tablet
750 mg PO Q6H PRN (Reason: muscle spams)
magnesium hydroxide [Milk of Magnesia] 400 mg/5 mL Suspension
30 ml PO DAILY PRN (Reason: if no bm in 3 days)
levothyroxine 50 mcg Tablet
50 mcg PO DAILY
pantoprazole 40 mg Tablet,Delayed Release (Dr/Ec)
40 mg PO BID
Fleet Enema 19-7 gram/118 mL Enema
118 ml MI DAILY PRN (Reason: if suppository is ineffective)
docusate sodium [Colace] 100 mg Capsule
100 mg PO BID
folic acid 1 mg Tablet
1 mg PO DAILY
furosemide 20 mg Tablet
20 mg PO DAILY
epinephrine [EpiPen 2-David] 0.3 mg/0.3 mL Auto-Injector
0.3 mg IM ONCE PRN (Reason: allergic reaction to bees)
eucalyptus-menthol Lozenge
3.1 mg MUCOUS MEMBRANE Q1H PRN (Reason: cough)
Patient Comments:
02/18/2024: 'give one prn at night (up to 3)'
insulin lispro 100 unit/mL Insulin Pen
2 - 10 sliding scale dose SC AC
Patient Comments:
02/18/2024: if 151-200= 2; 201-250= 4; 251-300=6; 301-350= 8; 351-400= 10; call MD if BS <60 or >400
insulin lispro 100 unit/mL Insulin Pen
2 unit SC HS
insulin lispro 100 unit/mL Insulin Pen
5 unit SC AC
guaifenesin 400 mg Tablet
800 mg PO DAILY
sodium chloride 0.65 % Aerosol,Saxon
1 spray INTRANASAL Q12H PRN (Reason: dry nasal)
pregabalin 150 mg Capsule
150 mg PO BID
insulin glargine [Lantus Solostar U-100 Insulin] 100 unit/mL (3 mL) Insulin Pen
24 unit SC HS
fenofibrate 54 mg Tablet
54 mg PO DAILY
melatonin 10 mg Tablet
20 mg PO HS
buprenorphine-naloxone [Suboxone] 4-1 mg Film
1 film BUCCAL BID
Patient Comments:
02/18/2024: for 7 days, until 02/22/24
Biofreeze (menthol) 4 % Gel
1 applic TOPICAL Q12H PRN (Reason: mid back pain/stump/LLE)
Ozempic 0.25 mg or 0.5 mg (2 mg/3 mL) Pen Injector
1 mg SC Q7D
Robitussin Mucus-Chest Congest
10 ml PO Q4H PRN (Reason: cough)
Discontinued
ziprasidone HCl [Geodon] 80 mg Capsule
80 mg PO BID
hydroxyzine HCl 50 mg Tablet
100 mg PO HS
hydroxyzine HCl 50 mg Tablet
50 mg PO Q6H PRN (Reason: anxiety)
diphenhydramine HCl [Benadryl Allergy] 25 mg Tablet
25 mg PO Q12H PRN (Reason: itching)
Discharge Orders:
Discharge Patient (As Directed); Ordered 03/05/24
Ordered By: Mitch Rivera
Discharge Date and Time
Print Language: GEORGIAN
[2024-03-05] MEDS: TYLENOL 650 MG PO (13:52)
--- NOTE | 2024-03-05 14:53 | W.PN.PUL3 ---
Today's Communication / Plan
-
Discharge planning
Sign off
Assessment
-
48-year-old woman with multiple comorbidities noted. Recently discharged from the hospital for possible aspiration pneumonia. Refused to undergo modified diet. Back to retirement and quickly her comfort care. Apparently became more responsive
or less responsive with low oxygen levels. Sent for evaluation. I was consulted on 03/04/2024 for hypoxemia.
Chronic hypoxemic respiratory failure. Currently on 3 L
Chest x-ray 03/04/2024: Clear lungs. Improve aeration compared to prior x-rays.
CT chest 02/19/2024:Bilateral pneumonia, greatest within the lower lobes. In the right lower lobe, there are cavitary nodular lesions, compatible with a component of cavitary pneumonia.
No evidence for associated pleural effusion.Fatty infiltration of the liver.
Negative proBNP/negative troponin
Negative COVID
Postinfectious cough
Suspect chronic aspiration
Conditions present prior admission:
Admission to [facility] 02/2024: Possible pneumonia with hypoxemia. She was considered high risk for aspiration at that time.
Speech evaluation 02-18 with clinical signs of OP dysphagia, considered at high risk for aspiration, rec level 6 soft diet and thin liquids but patient refused
Would consider VSE but body habitus could make it difficult
Type 2 diabetes
Hypertension
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
Bipolar disorder
GERD
Chronic pain/opiate use disorder
Obesity
Hypothyroidism
Gastric sleeve
Cholecystectomy
Tubal ligation
Former smoker quit several months ago [id number] history
Assessment and plan:
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
Patient again refused further evaluation for possible esophageal dysmotility and chronic aspiration.
Speech evaluation noted.
-
Sedative medications also contributing to hypoventilation, and decreased responsiveness at times. Medication will need to be adjusted.
Likely patient has some degree of hypoventilation due to obesity and possibly obstructive sleep apnea.
Obesity and itself likely causing subsegmental atelectasis with sedation and causing intermittent aspiration.
-
Recent CT chest in February 2024: Showed bibasilar infiltrates. Right lower lobe possibly bronchiectasis with cavitary lesions. Likely sequela of chronic aspiration.
Chest x-ray this admission with no worsening infiltrates.
Actually there is better aeration to my view.
-
Clear lung exam
Symptomatic management for cough
May continue Acapella device at the retirement.
Incentive spirometry encouraged.
Continue antitussive at the retirement
Continue DuoNeb for secretion clearance. Can continue upon discharge until symptoms clear
Continue Pulmicort nebulizer twice a day. Can continue upon discharge until symptoms clear
Separate call lozenges
Tessalon Perle
No need for further antibiotics
Further weaning down oxygen can be performed at the retirement. Weight loss will be helpful.
Aspiration precaution.
Likely this will be a recurrent situation as the patient has refused to modify her diet or go further evaluation in regards to aspiration.
Outpatient sleep evaluation may be helpful, unclear whether this patient will be willing to wear CPAP etc.
-
Will need outpatient evaluation for sleep if able to make it to the office
Weight loss will be helpful
Advised to adhere to modified diet. She refused in the past.
-
Discussed with Dr. Rivera, okay to discharge from my perspective.
Sign off
Subjective Data
-
Date of Service:
Date of Service: March 05, 2024
Chief Complaint: Pulmonary Follow Up (Hypoxemia)
Subjective:
No new complaints.
No significant phlegm production
On low rate supplemental oxygen
Patient decline further evaluation for aspiration.
Review of Systems
General: Fever (n)
Cardiopulmonary: Dyspnea (none at rest)
Objective Data
Data Reviewed
Vital Signs / I&O / Oxygen:
Vital Signs
Temp Pulse Resp BP Pulse Ox
97.6 F 78 18 126/72 94
03/05/24 08:00 03/05/24 11:36 03/05/24 11:36 03/05/24 08:00 03/05/24 11:36
Intake and Output
03/04/24 03/05/24 03/06/24
06:59 06:59 06:59
Intake Total 840 / 840
Balance 840 / 840
SaO2 94
Nasal Cannula flow liters per 3
minute
Labs/Micro/Reports
Lab Data
03/04/24 06:48
03/04/24 06:48
[2024-03-05 15:34] VITALS: BP 130/66
[2024-03-05 16:29] LABS: Glucose - Point of Care 177 mg/dl (70-99)
[2024-03-05] MEDS: NOVOLOG FLEXPEN-HIGH RESISTANCE 2 UNITS SC (16:51)
[2024-03-05] MEDS: LOVENOX 40 MG SC (17:03)
[2024-03-05 19:45] VITALS: BP 146/79
[2024-03-05 21:14] LABS: Glucose - Point of Care 174 mg/dl (70-99)
[2024-03-05] MEDS: ZYRTEC 10 MG PO (21:40)
[2024-03-05] MEDS: MELATONIN 20 MG PO (21:41)
[2024-03-05] MEDS: LANTUS 0.239999999999999991 UNITS SC (21:45)
--- NOTE | 2024-03-05 21:57 | PTCARENOTE ---
In report was told pt was being picked up at 2100 to be taken back to [facility]. Acute care called and stated they would not be able to pick her up due to her weight. They could arrange for a wheel chair van but not until after 2am. Pt became very
agitated by that. Danita RN roller printing supervisor was notified. She was made aware that Kia from Acute Care stated if there was staff at [facility] that could help lift stretcher in to ambulance they could take her. After speaking with Danita, Kia called
back and stated they would be there around 10pm to pick her up. Pt updated on transfer.
== END 2024-03-05 22:20 ==
LOC: 4 WEST ACU 01:46
PROVIDERS: Emergency Medicine; ADMITTING PHYSICIAN Hospitalist; ATTENDING PHYSICIAN Internal Medicine; CONSULT PHYSICIAN Internal Medicine Critical Care Medicine; CONSULT PHYSICIAN Psychiatry & Neurology Psychiatry; EMERGENCY PHYSICIAN Emergency Medicine; FAMILY PHYSICIAN Internal Medicine
DX: J96.21 Acute and chronic respiratory failure with hypoxia (principal); E66.2 Morbid (severe) obesity with alveolar hypoventilation; J45.909 Unspecified asthma, uncomplicated; R55 Syncope and collapse; R05.9 Cough, unspecified; I10 Essential (primary) hypertension; G93.41 Metabolic encephalopathy; E78.00 Pure hypercholesterolemia, unspecified; F31.9 Bipolar disorder, unspecified; E03.9 Hypothyroidism, unspecified; G89.4 Chronic pain syndrome; F11.90 Opioid use, unspecified, uncomplicated; E11.9 Type 2 diabetes mellitus without complications; K21.9 Gastro-esophageal reflux disease without esophagitis; F12.90 Cannabis use, unspecified, uncomplicated; K76.0 Fatty (change of) liver, not elsewhere classified; F17.200 Nicotine dependence, unspecified, uncomplicated; D64.9 Anemia, unspecified; R45.88 Nonsuicidal self-harm; Z89.511 Acquired absence of right leg below knee; Z90.49 Acquired absence of other specified parts of digestive tract; Z98.84 Bariatric surgery status; Z68.43 Body mass index [BMI] 50.0-59.9, adult; Z11.52 Encounter for screening for COVID-19; Z88.5 Allergy status to narcotic agent; Z88.0 Allergy status to penicillin; Z88.6 Allergy status to analgesic agent; Z91.041 Radiographic dye allergy status; Z91.040 Latex allergy status; Z79.84 Long term (current) use of oral hypoglycemic drugs; Z79.4 Long term (current) use of insulin; Z79.85 Long-term (current) use of injectable non-insulin antidiabetic drugs; Z87.01 Personal history of pneumonia (recurrent); Z91.410 Personal history of adult physical and sexual abuse; Z59.01 Sheltered homelessness; Z62.810 Personal history of physical and sexual abuse in childhood; Z71.3 Dietary counseling and surveillance
CPT/HCPCS: 71046; 80048; 80053; 82805; 82962; 83880; 84484; 85025; 85027; 87811; 92610; 93005; 94640; 94667; 94668; 97161; 97165; 99285; 99406; G0378

== ENCOUNTER → 2024-03-07 09:48 | Outpatient (REF) | payer OTHER, SELFPAY | LOC: HWRAD 09:48 | PROVIDERS: ATTENDING PHYSICIAN Internal Medicine | DX: J18.2 Hypostatic pneumonia, unspecified organism (principal); R06.02 Shortness of breath | CPT/HCPCS: 71250 ==

== ENCOUNTER 2024-10-17 23:36 | Inpatient (IN) | payer OTHER, SELFPAY ==
[2024-10-17 17:15] VITALS: BP 110/54
[2024-10-17 17:42] LABS: Hematocrit 38.5 % (37.0-47.0); Hemoglobin 12.5 g/dL (12.0-16.0); Mean Corp Hgb Conc. 32.5 g/dL (33.0-37.0); Mean Corpuscular Hgb 25.8 pg (27.0-31.0); Mean Corpuscular Volume 79.4 fL (81.0-99.0); Mean Platelet Volume 8.4 fL (7.4-10.4); Platelet Count 321 10^3/uL (130-400); Red Blood Cell Count 4.85 10^6/uL (4.20-5.40); White Blood Cell Count 7.2 10^3/uL (4.8-10.8)
[2024-10-17 17:52] LABS: ALT (SGPT) 14 U/L (0-35); AST (SGOT) 23 U/L (14-36); Alkaline Phosphatase 87 U/L (38-126); Blood Urea Nitrogen 11 mg/dl (7-17); Calcium 9.2 mg/dl (8.4-10.2); Carbon Dioxide 31 mmol/L (22-30); Chloride 97 mmol/L (98-107); Glucose 88 mg/dl (70-99); Potassium 4.1 mmol/L (3.5-5.1); Sodium 135 mmol/L (135-145); Total Bilirubin 0.2 mg/dl (0.2-1.3); Total Protein 6.7 g/dl (6.3-8.2); eGFR > 60.00
[2024-10-17 18:00] LABS: % Basophils 0.6 % (0-2); % Immature Granulocytes 0.3 % (0-0.5); % Lymphocytes 51.3 % (20.5-51.1); % Monocytes 5.1 % (1.7-9.3); % Neutrophils 37.7 % (42.2-75.2); Absolute Eosinophils 0.4 10^3/uL (0-0.7); Absolute Lymphocytes 3.7 10^3/uL (1.2-3.4); Absolute Monocytes 0.4 10^3/uL (0.1-0.6); Absolute Neutrophils 2.7 10^3/uL (1.4-6.5); Nucleated Red Blood Cells % 0 %
--- NOTE | 2024-10-17 22:07 | ED.GENMED ---
History of Present Illness
General
Chief Complaint: Skin Problem
Source: patient
Exam Limitations: none
Time Seen by Provider: 10/17/24 21:17
Nursing documentation reviewed up to this point in time: agreed with
History of Present Illness
History of Present Illness:
49-year-old female with a past medical history as noted significant for diabetes, diabetic neuropathy, prior right BKA and multiple toe amputations in the left; she presents today for evaluation of left foot wound. Patient reports that she noticed
it about a week ago; she denies any trauma or injury that she can recall. She reports she noticed 'a hole in my toe' and it has gotten progressively more swollen, red and she is having drainage from the toe. No fevers or chills. She denies any
other complaints. She is living at [facility]; she was supposed to start Keflex as an outpatient but had not received the antibiotic and ultimately was sent in to the ED for treatment.
Past History
Past History
ED Past Medical History: Asthma, GERD, HTN, Hypercholesterolemia, NIDDM, Hypothyroidism and Psychiatric (Anxiety, bipolar disorder)
ED Past Surgical History: Cholecystectomy, Gynecological (Tubel), Orthopedic (RBKA) and Other (Umbilical hernia repair, Gastric bypass sleeve)
Social History
Tobacco: Smoker
Alcohol: None
Drug: Other
Personal:
Living: retirement
Employment: Other
Family History
Family History: Other
Review of Systems
Review of Systems
All Other Systems: ROS reviewed and negative except as documented in HPI and ROS
Constitutional: Denies fever or chills
Cardiac: Denies chest pain
ABD/GI: Denies abdominal pain
Musculoskeletal: Denies neck pain or back pain
Skin: Reports other (Draining toe wound)
Phy Exam
Physical Exam
Physical Exam:
General: Awake, alert, oriented x3; no acute distress
Head: Normocephalic, atraumatic
Eyes: Conjunctiva normal
Throat: Airway intact, handling secretions
Neck: Trachea midline, supple without meningismus
Lungs: Breathing comfortably no distress
Heart: Regular rate and rhythm
Neuro: No gross deficit
Extremities: Patient is status post right BKA; she is status post multiple toe amputations on the left foot she only has 2 remaining toes; appears to be her remaining left fourth toe has shallow-based ulceration on the tip with juan daniel purulent
drainage; this entire toe is significantly edematous and erythematous very tender to the touch; if the erythema extends to the base of the toe and slightly extends to the foot
Scores
Heart Failure Risk
Heart Failure Risk Score: Not Applicable
Heart Score for Chest Pain Patients
STEMI patient?: Not applicable
Withdrawal Assessment of Alcohol
Withdrawal Assessment Completed?: Not applicable
Course
Orders/Labs/Results
Orders:
Orders
10/17/24 17:26
Complete Blood Count/With Diff Urgent
Comprehensive Metabolic Panel Urgent
Abnormal Lab Results
10/17/24
17:26
MCV 79.4 L fL
(81.0-99.0)
MCH 25.8 L pg
(27.0-31.0)
MCHC 32.5 L g/dL
(33.0-37.0)
RDW 16.0 H %
(11.5-14.5)
Absolute Lymphs (auto) 3.7 H 10^3/uL
(1.2-3.4)
Neutrophils % 37.7 L %
(42.2-75.2)
Lymphocytes % 51.3 H %
(20.5-51.1)
Chloride 97 L mmol/L
(98-107)
Carbon Dioxide 31 H mmol/L
(22-30)
Creatinine 1.1 H mg/dL
(0.6-1.0)
10/17/24 17:26
10/17/24 17:26
Vital Signs
Initial and Last Documented VS:
Initial Vital Signs
Temp Pulse Resp BP Pulse Ox
36.9 C 60 16 110/54 99
10/17/24 17:15 10/17/24 17:15 10/17/24 17:15 10/17/24 17:15 10/17/24 17:15
Last Documented Vital Signs
Temp Pulse Resp BP Pulse Ox
36.9 C 60 16 110/54 99
10/17/24 17:15 10/17/24 17:15 10/17/24 17:15 10/17/24 17:15 10/17/24 17:15
MDM/Problems Addressed
Differential Diagnosis Includes:
Diabetic wound infection
MDM/Problems Addressed:
49-year-old female presents to the ER with diabetic toe infection. Vitals normal. Exam as above. Labs sent in triage unremarkable. Check x-ray of the foot. Culture of wound sent off. Area cleaned. Will start on IV antibiotics and admit for
antibiotic treatment and consideration of debridement/further surgical intervention. Patient is unfortunately allergic to both vancomycin and penicillin; case discussed with infectious disease who recommended starting regimen of daptomycin and
meropenem. Case discussed with hospitalist for admission.
Chronic conditions affecting care:
Diabetes
*Pulse Oximetry
Patient hypoxic: no
*Critical Care Note
Total Time (30-74mins, 75-104mins- exclusive of procedures): Not Applicable
Data Reviewed
Source: patient and records
Patient Management
Discussion with other providers: Hospitalist (Discussed with hospitalist) and [facility] (Discussed with infectious disease)
Escalation/DeEscalation of care consider admission/obs:
Admission indicated
ED Attending Note
-
Portions of this chart may have been created with voice recognition software.� Occasional wrong word or��sound alike� substitutions may have occurred due to the inherent limitations of voice recognition software.
Discharge Plan
Departure
Discharge Problem:
Diabetic infection of left foot
Prescriptions:
No Action
metformin 500 mg Tablet
500 mg PO BIDWMEAL
sennosides [senna] 8.6 mg Tablet
17.2 mg PO HS
acetaminophen 325 mg Tablet
650 mg PO Q6H PRN (Reason: mild pain/temp>100.4)
lamotrigine [Lamictal] 200 mg Tablet
200 mg PO BID
ipratropium-albuterol 0.5 mg-3 mg(2.5 mg base)/3 mL Solution For Nebulization
3 ml INHALATION R Q4 PRN (Reason: sob)
polyethylene glycol 3350 [Miralax] 17 gram Powder In Packet
17 g PO DAILY
cetirizine [Zyrtec] 10 mg Tablet
10 mg PO HS
ondansetron HCl 4 mg Tablet
8 mg PO Q8H PRN (Reason: nausea)
loperamide [Imodium A-D] 2 mg Tablet
2 mg PO Q12H PRN (Reason: diarrhea)
clonidine HCl 0.2 mg Tablet
0.2 mg PO Q12H
methocarbamol 750 mg Tablet
750 mg PO Q6H PRN (Reason: muscle spams)
magnesium hydroxide [Milk of Magnesia] 400 mg/5 mL Suspension
30 ml PO DAILY PRN (Reason: if no bm in 3 days)
levothyroxine 50 mcg Tablet
50 mcg PO DAILY
pantoprazole 40 mg Tablet,Delayed Release (Dr/Ec)
40 mg PO BID
Fleet Enema 19-7 gram/118 mL Enema
118 ml [place] DAILY PRN (Reason: if suppository is ineffective)
docusate sodium [Colace] 100 mg Capsule
100 mg PO BID
folic acid 1 mg Tablet
1 mg PO DAILY
furosemide 20 mg Tablet
20 mg PO DAILY
epinephrine [EpiPen 2-David] 0.3 mg/0.3 mL Auto-Injector
0.3 mg IM ONCE PRN (Reason: allergic reaction to bees)
eucalyptus-menthol Lozenge
3.1 mg MUCOUS MEMBRANE Q1H PRN (Reason: cough)
Patient Comments:
02/18/2024: 'give one prn at night (up to 3)'
insulin lispro 100 unit/mL Insulin Pen
2 - 10 sliding scale dose SC AC
Patient Comments:
02/18/2024: if 151-200= 2; 201-250= 4; 251-300=6; 301-350= 8; 351-400= 10; call MD if BS <60 or >400
insulin lispro 100 unit/mL Insulin Pen
2 unit SC HS
insulin lispro 100 unit/mL Insulin Pen
5 unit SC AC
guaifenesin 400 mg Tablet
800 mg PO DAILY
sodium chloride 0.65 % Aerosol,[place]
1 spray INTRANASAL Q12H PRN (Reason: dry nasal)
pregabalin 150 mg Capsule
150 mg PO BID
insulin glargine [Lantus Solostar U-100 Insulin] 100 unit/mL (3 mL) Insulin Pen
24 unit SC HS
fenofibrate 54 mg Tablet
54 mg PO DAILY
melatonin 10 mg Tablet
20 mg PO HS
buprenorphine-naloxone [Suboxone] 4-1 mg Film
1 film BUCCAL BID
Patient Comments:
02/18/2024: for 7 days, until 02/22/24
Biofreeze (menthol) 4 % Gel
1 applic TOPICAL Q12H PRN (Reason: mid back pain/stump/LLE)
Ozempic 0.25 mg or 0.5 mg (2 mg/3 mL) Pen Injector
1 mg SC Q7D
Robitussin Mucus-Chest Congest
10 ml PO Q4H PRN (Reason: cough)
lurasidone [Latuda] 40 mg Tablet
40 mg PO BID Qty: 0 0RF
Referrals:
Jarett Sarkar DO [Family Provider] -
Interventions
Interventions:
*Risk Screen - Suicide Last Done: 10/17/24 17:15
*General Assessment Last Done: 10/17/24 17:15
*Neglect/Abuse Screening Last Done: 10/17/24 17:15
Discharge Date and Time
Print Language: TURKMEN
[2024-10-17 22:11] VITALS: BMI 35.6
[2024-10-17] MEDS: NSS 500 IV (22:42)
[2024-10-17] MEDS: MORPHINE SULFATE 4 MG IV (22:42)
[2024-10-17] MEDS: MERREM 1000 MG IV (22:42)
[2024-10-17 22:50] VITALS: BP 122/76
--- NOTE | 2024-10-17 23:26 | HPS.HSE ---
Family Physician
-
Family Physician: Jarett Sarkar, DO
Chief Complaint
-
diabetic foot infection
History of Present Illness
49-year-old female past medical history of type 2 diabetes, diabetic neuropathy, right BKA, multiple toe amputations on the left, obstructive sleep apnea, obesity hypoventilation syndrome, chronic microcytic anemia, bipolar disorder, hypothyroidism,
chronic pain disorder, GERD, obesity, [facility] left foot wound which she noticed a week ago. She has pain of the toe. She denies any trauma or injury. The area has gotten progressively more swollen, red having drainage
from the toe. No fevers or chills. She was supposed to start Keflex as outpatient but has not received it yet.
Medical History
Past Medical History
Past Medical History: Reports Other (type 2 diabetes, diabetic neuropathy, right BKA, multiple toe amputations on the left, obstructive sleep apnea, obesity hypoventilation syndrome, chronic microcytic anemia, bipolar disorder, hypothyroidism,
chronic pain disorder, GERD, obesity,)
Past Surgical History: Reports Other ( Cholecystectomy, Gynecological (Tubel), Orthopedic (RBKA) and Other (Umbilical hernia repair, Gastric bypass sleeve))
Social History
Tobacco: Smoker
Alcohol: None
Drug: None
Family History
Family History: Not pertinent
Allergies / Home Medications
Allergies reflects when Allergies were last updated in [employer].
Home Medications with original date entered in [employer]
Allergy/Medication List:
Allergies
Allergy/AdvReac Type Severity Reaction Status Date / Time
aspirin Allergy Unknown Verified 10/17/24 17:20
barium iodide Allergy Unknown Verified 10/17/24 17:20
codeine Allergy Vomiting Verified 10/17/24 17:20
latex Allergy Rash Verified 10/17/24 17:20
Penicillins Allergy Unknown Verified 10/17/24 17:20
vancomycin Allergy Unknown Verified 10/17/24 17:20
Home Medications
Robitussin Mucus-Chest Congest 10 ml PO Q4H PRN cough 02/18/24
acetaminophen 325 mg tablet 650 mg PO Q6H PRN mild pain/temp>100.4 02/18/24
buprenorphine 4 mg-naloxone 1 mg sublingual film (Suboxone) 1 film buccal BID opioid use disorder 02/18/24
cetirizine 10 mg tablet (Zyrtec) 10 mg PO HS Allergies 02/18/24
clonidine HCl 0.2 mg tablet 0.2 mg PO Q12H Blood Pressure 02/18/24
docusate sodium 100 mg capsule (Colace) 100 mg PO BID STOOL SOFTENER 02/18/24
epinephrine 0.3 mg/0.3 mL injection, auto-injector (EpiPen 2-David) 0.3 mg IM ONCE PRN allergic reaction to bees 02/18/24
eucalyptus-menthol oral mucosal lozenge 3.1 mg mucous membrane Q1H PRN cough 02/18/24
fenofibrate 54 mg tablet 54 mg PO DAILY HIGH TRIGLYCERIDE 02/18/24
folic acid 1 mg tablet 1 mg PO DAILY Supplement 02/18/24
furosemide 20 mg tablet 20 mg PO DAILY Fluid Retention/Swelling 02/18/24
guaifenesin 400 mg tablet 800 mg PO DAILY Congestion 02/18/24
insulin glargine 100 unit/mL (3 mL) subcutaneous pen (Lantus Solostar U-100 Insulin) 24 unit SC HS Diabetes 02/18/24
insulin lispro 100 unit/mL subcutaneous pen 2 - 10 sliding scale dose SC AC Diabetes 02/18/24
insulin lispro 100 unit/mL subcutaneous pen 2 unit SC HS Diabetes 02/18/24
insulin lispro 100 unit/mL subcutaneous pen 5 unit SC AC Diabetes 02/18/24
ipratropium 0.5 mg-albuterol 3 mg (2.5 mg base)/3 mL nebulization soln 3 ml inhalation R Q4 PRN sob 02/18/24
lamotrigine 200 mg tablet (Lamictal) 200 mg PO BID Mental Health/Anxiety 02/18/24
levothyroxine 50 mcg tablet 50 mcg PO DAILY Thyroid 02/18/24
loperamide 2 mg tablet (Imodium A-D) 2 mg PO Q12H PRN diarrhea 02/18/24
magnesium hydroxide 400 mg/5 mL oral suspension (Milk of Magnesia) 30 ml PO DAILY PRN if no bm in 3 days 02/18/24
melatonin 10 mg tablet 20 mg PO HS Sleep 02/18/24
menthol 4 % topical gel (Biofreeze (menthol)) 1 applic topical Q12H PRN mid back pain/stump/LLE 02/18/24
metformin 500 mg tablet 500 mg PO BIDWMEAL Diabetes 02/18/24
methocarbamol 750 mg tablet 750 mg PO Q6H PRN muscle spams 02/18/24
ondansetron HCl 4 mg tablet 8 mg PO Q8H PRN nausea 02/18/24
pantoprazole 40 mg tablet,delayed release 40 mg PO BID GERD 02/18/24
polyethylene glycol 3350 17 gram oral powder packet (Miralax) 17 g PO DAILY Gastrointestinal Issue 02/18/24
pregabalin 150 mg capsule 150 mg PO BID Pain 02/18/24
semaglutide 0.25 mg or 0.5 mg (2 mg/3 mL) subcutaneous pen injector (Ozempic) 1 mg SC Q7D Diabetes 02/18/24
sennosides 8.6 mg tablet (senna) 17.2 mg PO HS Constipation 02/18/24
sodium chloride 0.65 % nasal spray aerosol 1 spray intranasal Q12H PRN dry nasal 02/18/24
sodium phosphates 19 gram-7 gram/118 mL enema (Fleet Enema) 118 ml [place] DAILY PRN if suppository is ineffective 02/18/24
lurasidone 40 mg tablet (Latuda) 40 mg PO BID #0 tabs 03/05/24
Review of Systems
-
History Source: Patient
A 12 point ROS was completed and negative except as noted: Yes
Constitutional: Reports No Symptoms
EENT: Reports No Symptoms
Respiratory: Reports No Symptoms
Cardiac: Reports No Symptoms
Abdomen/GI: Reports No Symptoms
: Reports No Symptoms
Musculoskeletal: Reports No Symptoms
Skin: Reports See HPI
Neurological: Reports No Symptoms
Endocrine: Reports No Symptoms
Hematologic/Lymphatic: Reports No Symptoms
Psych: Reports No Symptoms
Physical Exam
Vital Signs
Vital Signs
Temp Pulse Resp BP Pulse Ox
98.3 F 65 16 122/76 95
10/17/24 22:50 10/17/24 22:50 10/17/24 17:15 10/17/24 22:50 10/17/24 22:50
Physical Exam
General: Well Developed, Well Nourished and No Apparent Distress
HEENT: NormoCephalic, Moist mucous membranes and Atraumatic
Respiratory: Clear
Cardiac: S1/S2 and Regular Rhythm; No Murmur or Rub
GI: Soft, Non Tender, Non Distended and Normal Bowel Sounds; No Organomegaly
Rectal: Deferred by Provider
Musculoskeletal: No Clubbing, No Cyanosis and No Edema
Skin: Other (left 4th toe erythema swelling and wound ); No Rash
Neuro: Nonfocal/grossly intact
Laboratory Results
-
10/17/24 17:26
10/17/24 17:26
Laboratory Results
Total Bilirubin 0.2 mg/dl (0.2-1.3) 10/17/24 17:26
AST 23 U/L (14-36) 10/17/24 17:26
ALT 14 U/L (0-35) 10/17/24 17:26
Alkaline Phosphatase 87 U/L (38-126) 10/17/24 17:26
Data Reviewed
-
Lab Data: Labs Reviewed by me
Old Records: Reviewed
Impression/Plan
-
IMPRESSION:
PLAN:
# Diabetic toe infection of left fourth toe
-Check x-ray of the foot
-Wound culture pending
-Patient with allergies to vancomycin and penicillin, ID recommended daptomycin/meropenem
-Dilaudid for pain
-Podiatry consulted
Type 2 diabetes
-On Ozempic, not on insulin
-Insulin sliding scale
Diabetic neuropathy
History of right BKA
History of multiple left toe amputations
Chronic lymphedema left lower extremity
Obstructive sleep apnea
Asthma
-continue inhalers
Active smoker
-Smokes few cigarettes per day
Obesity hypoventilation
Chronic microcytic anemia
-Improved
Anxiety/bipolar disorder
-Continue lamotrigine
-Continue lurasidone
Hypothyroidism
-Continue levothyroxine
Chronic pain disorder
-Continue pregabalin
Hyperlipidemia
-Continue fenofibrate
GERD
-Continue Protonix
Obesity
Full code
DVT prophylaxis�heparin
Regular diet
--- NOTE | 2024-10-17 23:30 | PHANOTE ---
Addendum entered by Digna Mead 10/18/24 08:11:
called [facility] at [phone] awaiting fax of medication list
Original Note:
med rec tech(10/17/24)-Could not locate patient's [facility] paperwork in the department, attempted calling the mail machine operator and 2nd floor nursing at [facility] for the paperwork. Phone calls went unanswered, unable to obtain paperwork at this time.
[2024-10-18] MEDS: CUBICIN 8 MG IV (00:25)
[2024-10-18] MEDS: DILAUDID 0.5 MG IV ×3 (01:27→11:40)
[2024-10-18] MEDS: ZOFRAN 4 MG IV (01:27)
[2024-10-18 07:03] LABS: % Basophils 0.7 % (0-2); % Eosinophils 5.1 % (0-6); % Immature Granulocytes 0.1 % (0-0.5); % Lymphocytes 43.3 % (20.5-51.1); % Monocytes 5.9 % (1.7-9.3); % Neutrophils 44.9 % (42.2-75.2); Absolute Basophils 0.1 10^3/uL (0-0.2); Absolute Eosinophils 0.4 10^3/uL (0-0.7); Absolute Lymphocytes 3.7 10^3/uL (1.2-3.4); Absolute Monocytes 0.5 10^3/uL (0.1-0.6); Absolute Neutrophils 3.8 10^3/uL (1.4-6.5); Hematocrit 40.1 % (37.0-47.0); Hemoglobin 13.1 g/dL (12.0-16.0); Mean Corp Hgb Conc. 32.7 g/dL (33.0-37.0); Mean Corpuscular Hgb 25.2 pg (27.0-31.0); Mean Corpuscular Volume 77.3 fL (81.0-99.0); Nucleated Red Blood Cells % 0 %; Platelet Count 352 10^3/uL (130-400); Red Blood Cell Count 5.19 10^6/uL (4.20-5.40); Red Cell Dist. Width 15.8 % (11.5-14.5); White Blood Cell Count 8.4 10^3/uL (4.8-10.8)
[2024-10-18 07:29] LABS: Glucose - Point of Care 88 mg/dl (70-99)
[2024-10-18 08:02] VITALS: BP 137/93
[2024-10-18] MEDS: MERREM 100 MG IV (08:13)
[2024-10-18] MEDS: HEPARIN 5000 UNITS SC (08:17)
[2024-10-18 08:44] LABS: ALT (SGPT) 16 U/L (0-35); AST (SGOT) 29 U/L (14-36); Albumin 3.9 g/dl (3.5-5.0); Alkaline Phosphatase 95 U/L (38-126); Blood Urea Nitrogen 11 mg/dl (7-17); Calcium 9.4 mg/dl (8.4-10.2); Carbon Dioxide 31 mmol/L (22-30); Chloride 97 mmol/L (98-107); Estimated Creatinine Clearance 80 ml/min; Glucose 86 mg/dl (70-99); Potassium 3.6 mmol/L (3.5-5.1); Sodium 136 mmol/L (135-145); Total Bilirubin 0.4 mg/dl (0.2-1.3); Total Protein 6.8 g/dl (6.3-8.2); eGFR > 60.00
[2024-10-18 08:58] LABS: Glycohemoglobin (HgbA1c) 5.8 % (4.0-5.6)
--- NOTE | 2024-10-18 11:47 | CON.ID ---
Addendum entered and electronically signed by Maggi Chavez MD 10/18/24 13:52:
Xray report now back, no evidence of osteomyelitis; wound is superficial without probe to bone.
Stable for discharge from ID perspective with cefdinir 300 mg PO BID and metronidazole 500 mg PO BID x14 days
recommendation reviewed with podiatry and primary team.
Original Note:
Consultation
-
Date/Time Consultation Requested: 10/17/24 22:16
Date/Time Consultation Performed: 10/18/24 11:52
Requesting Provider: Dr Mcguire
Performing Provider: Dr Chavez
Reason for Consultation: diabetic foot infection
Chief Complaint / Past History
Chief Complaint
pain in the left foot
History of Present Illness
Ms Barba is a 49 year old female with history of DM2 with neuropathy, R BKA, multiple L toe amputations. She reports noting an injury of the L toe about 1 week ago - cannot recall a specific trauma to the area. Had pain in the toe, then
progressive swelling, redness and drainage. No fevers or chills. She states she was going to start keflex outpatient but has not yet received the medication.
Since arrival here she has been afebrile, bp stable, wbc count 7.2, hgb 12.5, plt 321, mild lymphocytosis, na 135, k 4.1, cr 1.1 from baseline of 0.8, a1c 5.8, normal LFTs, 10/17 Xray foot my read first digit proximal metatarsal amputation; 3rd digit
TMA - radiology comments hammer toe deformities but no changes of osteomyelitsi, a wound culture was done, not colonized with MRSA when last assessed 02/2024. Currently on daptomycin and meropenem. Podiatry consulted, ID is consulted for assistance
with management.
Past History
Additional Past Medical History:
obstructive sleep apnea, obesity hypoventilation syndrome, chronic microcytic anemia, bipolar disorder, hypothyroidism, chronic pain disorder, GERD, class II obesity,
Additional Past Surgical History:
Cholecystectomy, Gynecological (Tubel), Orthopedic (RBKA) and Other (Umbilical hernia repair, Gastric bypass sleeve
Allergy History:
aspirin Allergy (Verified 10/18/24 03:07)
Unknown
barium iodide Allergy (Verified 10/18/24 03:07)
Unknown
codeine Allergy (Verified 10/18/24 03:07)
Vomiting
latex Allergy (Verified 10/18/24 03:07)
Rash
Penicillins Allergy (Verified 10/18/24 09:04)
Unknown, tolerated ceftriaxone and cefepime in past
vancomycin Allergy (Verified 10/18/24 03:07)
Unknown
Medications Reviewed: Yes
Social History
Tobacco: Smoker (3 cigarettes per day; no interest in stopping)
Alcohol: None
Drug: None
Family History
Family History: Not Pertinent
Review of Systems
Review of Systems
General: Negative Fever or Chills
All systems: All other systems were reviewed and were negative
Vital Signs
Temp Pulse Resp BP Pulse Ox
98.5 F 82 17 137/93 97
10/18/24 08:02 10/18/24 08:02 10/18/24 08:02 10/18/24 08:02 10/18/24 08:02
Physical Exam
Physical Exam
Constitutional: No Acute Distress
Cardiovascular: Regular Rate and S1/S2; Negative Murmur or Rub
Pulmonary: Clear and Symmetric; Negative Wheezes, Rales or Rhonchi
Gastrointestinal: Soft, Non Tender, Non Distended and Normal Bowel Sounds
Extremities: Edema (chronic lymphedema of the LLE - uncontrolled)
Skin: Warm and Dry; Negative Rash or Jaundice
Wound: Other (left fourth toe wound, majority of toenail removed, mild erythema, no purulence, no fluctance)
Lab / Diagnostic Study Results
10/18/24 06:38
10/18/24 08:12
Abs Immat Gran (auto) 0.0 10^3/uL (0-0.05) 10/18/24 06:38
Absolute Neuts (auto) 3.8 10^3/uL (1.4-6.5) 10/18/24 06:38
Absolute Lymphs (auto) 3.7 10^3/uL (1.2-3.4) H 10/18/24 06:38
Absolute Monos (auto) 0.5 10^3/uL (0.1-0.6) 10/18/24 06:38
Absolute Basos (auto) 0.1 10^3/uL (0-0.2) 10/18/24 06:38
Immature Gran % 0.1 % (0-0.5) 10/18/24 06:38
Neutrophils % 44.9 % (42.2-75.2) 10/18/24 06:38
Lymphocytes % 43.3 % (20.5-51.1) 10/18/24 06:38
Monocytes % 5.9 % (1.7-9.3) 10/18/24 06:38
Eosinophils % 5.1 % (0-6) 10/18/24 06:38
Basophils % 0.7 % (0-2) 10/18/24 06:38
Microbiology Results
Micro:
10/17/24 22:40 Wound Culture - Pending
Toe Gram Stain - Pending
Assessment / Plan
Mild Diabetic Foot Infection
DM2 - well controlled
Penicillin 'allergy' coughing up blood as a child; h/o vancomycin infusion reaction
- with torn toenail, and mild erythema suspect diabetic foot infection; also note pain is out of proportion to physical exam findings, gout also on the differential, no prior episodes
- check uric acid level as well, doubt joint could be aspirated given size
- wound culture in progress
- if febrile then would send blood cultures x2
- MRSA PCR
- start ceftriaxone/metronidazole; stop meropenem
- suspect she would likely tolerate a penicillin based drug, however she is not willing to undergo challenge at this time
- stop daptomycin
- foot too tender to consider compression at this time
- recommend smoking cessation
- likely transition to oral therapy tomorrow, to complete 14 day course
--- NOTE | 2024-10-18 12:06 | CON.MD ---
Consultation - Medical
-
Consult requested by Dr kaden Pearl received 10/18/2024 at 7:23a
Consult performed on 10/18/2024 at 11:45a
Medical History
Chief Complaint
CC: Left toe infection and pain
History of Present Illness
History of Present Illness
General
Chief Complaint: Pain left 4th toe
Source: patient
History of Present Illness:
This is a 49-year-old female with a past medical history significant for diabetes, diabetic neuropathy, prior right BKA and toe amputations 1,3 on the left foot; she presents today for evaluation of left toe wound.
Patient reports that she noticed it about a week ago; she does not recall any trauma or injuryl. She reports she noticed 'a hole in my toe' and it has gotten progressively more swollen, red and she is having drainage from the toe. No fevers or
chills. She denies any other complaints. She is living at [facility]. I was asked to evaluate wound to the left 4th toe
Review of Systems
Review of Systems
All Other Systems: ROS reviewed and negative except as documented in HPI and ROS
Constitutional: Denies fever or chills
Cardiac: Denies chest pain
ABD/GI: Denies abdominal pain
Musculoskeletal: Denies neck pain or back pain
Skin: Reports other (Draining toe wound)
Past Medical / Surgical History
Past History
Past History
ED Past Medical History: Asthma, GERD, HTN, Hypercholesterolemia, NIDDM, Hypothyroidism and Psychiatric (Anxiety, bipolar disorder)
ED Past Surgical History: Cholecystectomy, Gynecological (Tubel), Orthopedic (RBKA) and Other (Umbilical hernia repair, Gastric bypass sleeve)
Social / Family History
Social History
Tobacco: Smoker
Alcohol: None
Drug: Other
Personal: , family lives in [place], [place]
[facility]
Family History
Family History: Other, not pertinent
Vital Signs / Labs
-
Vital Signs and Labs:
Temp Pulse Resp BP Pulse Ox
98.5 F 82 17 137/93 97
10/18/24 08:02 10/18/24 08:02 10/18/24 08:02 10/18/24 08:02 10/18/24 08:02
10/18/24 06:38
10/18/24 08:12
10/17/24 10/18/24 10/18/24
17:26 06:38 08:12
MCV 79.4 L 77.3 L
MCH 25.8 L 25.2 L
MCHC 32.5 L 32.7 L
RDW 16.0 H 15.8 H
Absolute Lymphs (auto) 3.7 H 3.7 H
Neutrophils % 37.7 L
Lymphocytes % 51.3 H
Chloride 97 L 97 L
Carbon Dioxide 31 H 31 H
Creatinine 1.1 H
Hemoglobin A1c 5.8 H
Physical Exam
Vital Signs
Vital Signs
Temp Pulse Resp BP Pulse Ox
98.5 F 82 17 137/93 97
10/18/24 08:02 10/18/24 08:02 10/18/24 08:02 10/18/24 08:02 10/18/24 08:02
Physical Exam
General:NAD, non-toxic, Awake, alert, oriented x3
Other: LE focused
Extremities: + Pedal edema/lymphedema with palpable DPA and [employer], +hyperaesthesia to very light touch. Patient is status post right BKA; she is status post 1st and 3rd toe amputations on the left foot,left fourth toe +full thickness ulceration to
distal toe, i was unable to see or express any purulent drainage; + edema and erythema to the 4th toe only and does not involve tissue beyong the toe. Foot warm and dry.
Assessemnt/Plan
-
1.NIDDM- Hg A1c <6mg/dL
2.Lymphedema LLE
3.Cellulitis left 4th toe with wound to nail bed- doubt osteomyelitis at this time
4.Peripheral neuropathy with hyperaesthesia on exam today
5.H/O digital amps toes 1,3 left foot
6.H/O BKA RLE- stable, does not wear a prosthesis
7.Full thickness wound left 4th toe- orders written for care. Will follow course with IV abt and local wound care. If there is evidence of OM to the distal phalynx will proceed with partial 4th toe amputation. Patient expresses some interest in
latter, stating she wants to be 'a 2-toed sloth'. Questionable affect and motives, may benefit from psych eval
[2024-10-18 12:55] LABS: Glucose - Point of Care 105 mg/dl (70-99)
[2024-10-18 13:14] VITALS: BP 102/54
[2024-10-18] MEDS: SUBUTEX 2 MG SL (13:17)
--- NOTE | 2024-10-18 14:10 | CM ---
Patient is a LTC resident of [facility]. CM updated [facility] Admission coordinator.
[facility]
Report
[phone]
ask for second floor
--- NOTE | 2024-10-18 14:16 | W.PN.HOSP.TC ---
Today's Communication/Plan
-
Discharge to long-term care facility
Assessment / Plan
Assessment / Plan
NAD
Scleral Anicteric
MMM
No JVD
CTABL
RRR, S1/S2, chronic lymphedema of the left lower extremity�uncontrolled
Soft, NT, ND, BS+
Warm, Dry, left for 2 with mild erythema no purulence or fluctuance, majority of toenail removed
AAOx3
Calm
Presented with a diabetic foot infection of the left foot with associated pain. Concern for penicillin allergy therefore started on daptomycin and meropenem. Evaluated by podiatry and infectious diseases. Reviewed x-ray without evidence of
osteomyelitis. Determined she could be discharged home or back to long-term care facility on cefdinir 300 mg twice a day and metronidazole 500 mg twice a day x 14 days. Will need continued outpatient wound care and podiatric follow-up. Will
likely require eventual amputation of the fourth toe
Anticipated Discharge: Today
Subjective/Interval History
-
Date of Service: October 18, 2024
Seen and examined. No new complaints. No acute overnight events.
Objective Data
-
Labs:
Laboratory Results
10/18/24 10/18/24
06:38 08:12
WBC 8.4
Hgb 13.1
Hct 40.1
Plt Count 352
Sodium Cancelled 136
Potassium Cancelled 3.6
Chloride Cancelled 97 L
Carbon Dioxide Cancelled 31 H
BUN Cancelled 11
Creatinine Cancelled 1.0
Glucose Cancelled 86
Calcium Cancelled 9.4
Total Bilirubin Cancelled 0.4
AST Cancelled 29
ALT Cancelled 16
Alkaline Phosphatase Cancelled 95
Vital Signs:
Vital Signs
Temp Pulse Resp BP Pulse Ox
98.5 F 74 20 102/54 97
10/18/24 08:02 10/18/24 13:14 10/18/24 13:14 10/18/24 13:17 10/18/24 13:14
--- NOTE | 2024-10-18 14:20 | W.DCSUMMARY ---
Addendum entered and electronically signed by Xavier Sanchez MD 10/18/24 15:57:
I informed her of x-ray findings and the decision was made to discharge on p.o. antibiotics for 14 days. She started yelling and became verbally abusive screaming profanity such as you f'er, if I become f'ing septic then my children are going to
nirav you. I informed her this is a superficial infection it has not affected the bone. Podiatry will come by to reevaluate and provide some wound care however determination has been made to discharge back to [facility]. She again started yelling.
Original Note:
Discharge Summary
Discharge Data
Date of Admission: 10/17/24
Date of Discharge: 10/18/24
-
Pending Results: No
Hospital Course
49-year-old female past medical history of type 2 diabetes, diabetic neuropathy, right BKA, multiple toe amputations on the left, obstructive sleep apnea, obesity hypoventilation syndrome, chronic microcytic anemia, bipolar disorder, hypothyroidism,
chronic pain disorder, GERD, obesity.
Presented from long-term care facility with a left foot wound with pain in the toe. Was started on Keflex but had not received it as of yet. Had x-ray of the foot without evidence of osteomyelitis. Probe to bone was negative. Superficial wound.
Evaluated by podiatry and infectious disease both agree can be discharged back to long-term care facility with cefdinir and Flagyl twice a day for 14 days.
Will need continued outpatient follow-up with podiatry for potential fourth toe amputation.
Foot Xray
IMPRESSION:
No definitive bony destruction noted to suggest osseous myelitis.
Hammertoe deformities of the second, fourth and fifth digits.
Indications of the first and third digits as described above.
Subluxation of the second, fourth and fifth MTP joints as described above.
Moderate dorsal midfoot osteoarthritis
Discharge Plan
-
Patient Disposition: Skilled Nursing/SNF
Discharge Diagnosis/Procedures: Left foot diabetic foot infection
Condition: Good
Diet: Diabetic, Carb Controlled
Activity: With assistance and Do not bear weight L leg
Activity Restrictions/Additional Instructions:
Presented from long-term care facility with a left foot wound with pain in the toe. Was started on Keflex but had not received it as of yet. Had x-ray of the foot without evidence of osteomyelitis. Probe to bone was negative. Superficial wound.
Evaluated by podiatry and infectious disease both agree can be discharged back to long-term care facility with cefdinir and Flagyl twice a day for 14 days.
Will need continued outpatient follow-up with podiatry for potential fourth toe amputation.
Foot Xray
IMPRESSION:
No definitive bony destruction noted to suggest osseous myelitis.
Hammertoe deformities of the second, fourth and fifth digits.
Indications of the first and third digits as described above.
Subluxation of the second, fourth and fifth MTP joints as described above.
Moderate dorsal midfoot osteoarthritis
Referrals:
Jarett Sarkar DO [Family Provider] -
Prescriptions:
New
mupirocin 2 % Ointment
1 applic topical TIDPRN PRN (Reason: left toe wound) Qty: 15 0RF
metronidazole 500 mg Tablet
500 mg PO BID 14 Days Qty: 28 0RF
cefdinir 300 mg capsule
300 mg PO BID 14 Days Qty: 28 0RF
Continued
metformin 500 mg Tablet
500 mg PO BIDWMEAL
sennosides [senna] 8.6 mg Tablet
17.2 mg PO HS
acetaminophen 325 mg Tablet
650 mg PO Q6HPRN PRN (Reason: mild pain/temp>100.4)
lamotrigine [Lamictal] 200 mg Tablet
250 mg PO BID
polyethylene glycol 3350 [Miralax] 17 gram Powder In Packet
17 g PO DAILY
ondansetron HCl 4 mg Tablet
8 mg PO Q8HPRN PRN (Reason: nausea)
loperamide [Imodium A-D] 2 mg Tablet
2 mg PO [id number] PRN (Reason: diarrhea)
clonidine HCl 0.2 mg Tablet
0.2 mg PO Q12H
methocarbamol 750 mg Tablet
750 mg PO Q6HPRN PRN (Reason: muscle spams)
magnesium hydroxide [Milk of Magnesia] 400 mg/5 mL Suspension
30 ml PO DAILYPRN PRN (Reason: if no bm in 3 days)
levothyroxine 50 mcg Tablet
50 mcg PO DAILY
pantoprazole 40 mg Tablet,Delayed Release (Dr/Ec)
40 mg PO BID
Fleet Enema 19-7 gram/118 mL Enema
118 ml MA DAILYPRN PRN (Reason: if suppository is ineffective)
docusate sodium [Colace] 100 mg Capsule
100 mg PO BID
folic acid 1 mg Tablet
1 mg PO DAILY
furosemide 20 mg Tablet
20 mg PO BID
eucalyptus-menthol Lozenge
3.1 mg MUCOUS MEMBRANE Q1HPRN PRN (Reason: cough)
sodium chloride 0.65 % Aerosol,[place]
1 spray INTRANASAL [id number] PRN (Reason: dry nasal)
fenofibrate 54 mg Tablet
54 mg PO DAILY
melatonin 10 mg Tablet
20 mg PO HS
Ozempic 0.25 mg or 0.5 mg (2 mg/3 mL) Pen Injector
1 mg SC TU
lurasidone [Latuda] 40 mg Tablet
40 mg PO BID Qty: 0 0RF
hydroxyzine HCl 50 mg Tablet
100 mg PO HS
hydroxyzine HCl 50 mg Tablet
50 mg PO Q6HPRN PRN (Reason: anxiety)
losartan 25 mg Tablet
25 mg PO DAILY
escitalopram oxalate [Lexapro] 10 mg Tablet
10 mg PO DAILY
cetirizine [Zyrtec] 10 mg Tablet
10 mg PO HS
capsaicin 0.075 % Cream
1 applic TOPICAL Q8HPRN PRN (Reason: 8g to affected area)
acetaminophen [Tylenol Extra Strength] 500 mg Tablet
1,000 mg PO TIDPRN
bisacodyl [Dulcolax (bisacodyl)] 10 mg Suppository
10 mg MA DAILYPRN PRN (Reason: if no bm aftr mom)
diphenhydramine HCl [Benadryl] 25 mg Capsule
25 mg PO [id number] PRN (Reason: itching)
nystatin 100,000 unit/gram Powder
1 applic TOPICAL BID
diazepam [Valium] 5 mg Tablet
5 mg PO DAILYPRN PRN (Reason: 30 minutes prior to mri, may repeat once)
Biofreeze (menthol) 5 % Adhesive Patch,Medicated
1 patch TOPICAL DAILYPRN PRN (Reason: right shoulder)
cholecalciferol (vitamin D3) [Vitamin D3] 25 mcg (1,000 unit) Tablet
25 mcg PO DAILY
budesonide-formoterol [Symbicort] 80-4.5 mcg/actuation Hfa Aerosol Inhaler
2 inh INHALATION R BID
buprenorphine-naloxone [Suboxone] 2-0.5 mg Film
1 film BUCCAL BID
Discontinued
cephalexin [Keflex] 500 mg Capsule
500 mg PO QID
Rx Instructions:
start 10/18/24-10/23/24
Discharge Orders:
Discharge Patient (As Directed); Ordered 10/18/24
Ordered By: Xavier Sanchez
Discharge Date and Time
Print Language: LIBERIAN
[2024-10-18] MEDS: OMNICEF 300 MG PO (14:54)
[2024-10-18 17:18] VITALS: BP 130/90
--- NOTE | 2024-10-18 17:51 | W.PN.UPDATE ---
Update Note
Progress Note Update
Returned to see patient per request- explained that she will not require surgery/amp at this time. ABT per ID x 14days. Wound care orders added to DC record for transfer to SNF[facility].
She is to wear post op shoe when OOB and for transfers.
Follow with wound care team at facility.
Stable for DC to SNF from my perspective, patient appears to be more agreeable to planned treatment
== END 2024-10-18 22:00 | DRG 638 ==
LOC: ED 23:36
PROVIDERS: Emergency Medicine; ADMITTING PHYSICIAN Hospitalist; ATTENDING PHYSICIAN Hospitalist; CONSULT PHYSICIAN Podiatrist Foot & Ankle Surgery; CONSULT PHYSICIAN Student in an Organized Health Care Education/Training Program; EMERGENCY PHYSICIAN Emergency Medicine; FAMILY PHYSICIAN Internal Medicine
DX: E11.628 Type 2 diabetes mellitus with other skin complications (principal); E66.2 Morbid (severe) obesity with alveolar hypoventilation; E11.621 Type 2 diabetes mellitus with foot ulcer; E11.40 Type 2 diabetes mellitus with diabetic neuropathy, unspecified; L97.521 Non-pressure chronic ulcer of other part of left foot limited to breakdown of skin; L03.032 Cellulitis of left toe; E03.9 Hypothyroidism, unspecified; I89.0 Lymphedema, not elsewhere classified; F17.210 Nicotine dependence, cigarettes, uncomplicated; F31.9 Bipolar disorder, unspecified; D50.9 Iron deficiency anemia, unspecified; K21.9 Gastro-esophageal reflux disease without esophagitis; I10 Essential (primary) hypertension; J45.909 Unspecified asthma, uncomplicated; E66.812 Obesity, class 2; E78.00 Pure hypercholesterolemia, unspecified; Z98.84 Bariatric surgery status; Z89.511 Acquired absence of right leg below knee; Z79.890 Hormone replacement therapy; Z89.422 Acquired absence of other left toe(s); Z88.0 Allergy status to penicillin; Z88.5 Allergy status to narcotic agent; Z88.1 Allergy status to other antibiotic agents; Z79.84 Long term (current) use of oral hypoglycemic drugs; Z79.85 Long-term (current) use of injectable non-insulin antidiabetic drugs; Z79.899 Other long term (current) drug therapy; Z68.35 Body mass index [BMI] 35.0-35.9, adult
CPT/HCPCS: 73630; 80053; 82962; 83036; 85025; 87070; 87205; 87641; J0878; J2185

== ENCOUNTER 2024-10-22 18:42 | Emergency (ER) | payer OTHER, MEDICAID, SELFPAY ==
[2024-10-22 18:49] VITALS: BP 129/82; BMI 36.4
--- NOTE | 2024-10-22 19:10 | ED.MUSCINJ ---
HPI-Injury
General
Chief Complaint: Musculo-Skeletal Complaint
Source: patient and ambulance crew
Exam Limitations: none
Time Seen by Provider: 10/22/24 18:48
Nursing documentation reviewed up to this point in time: agreed with
History of Present Illness-Injury
Initial Injury comments:
49-year-old female past medical history of type 2 diabetes, diabetic neuropathy, right BKA, multiple toe amputations on the left, obstructive sleep apnea, obesity hypoventilation syndrome, chronic microcytic anemia, bipolar disorder, hypothyroidism,
chronic pain disorder, GERD, obesity.
Presents from [facility] for worse pain in left 4th toe, stomach upset she thinks from antibiotics and 'I feel like the infection is starting to go through my body.'
Admitted 10/15-10/17 for left foot wound with pain in the toe. Had x-ray of the foot without evidence of osteomyelitis. Probe to bone was negative. Superficial wound. Evaluated by podiatry and infectious disease both agree can be discharged
back to long-term care facility with cefdinir and Flagyl twice a day for 14 days.
To F/U with podiatry as an out pt. for potential 4th toe amputation
Will need continued outpatient follow-up with podiatry for potential fourth toe amputation.
Past History
Past History
ED Past Medical History: Asthma, GERD, HTN, Hypercholesterolemia, NIDDM, Hypothyroidism and Psychiatric (Anxiety, bipolar disorder)
ED Past Surgical History: Cholecystectomy, Gynecological (Tubel), Orthopedic (RBKA) and Other (Umbilical hernia repair, Gastric bypass sleeve)
Social History
Tobacco: Smoker
Alcohol: None
Drug: Other
Personal:
Living: halfway
Employment: Other
Family History
Family History: Other
Review of Systems
Review of Systems
Allergies reviewed?: Yes
All Other Systems: ROS reviewed and negative except as documented in HPI and ROS
Constitutional: Reports chills; Denies fever
Respiratory: Denies trouble breathing
Cardiac: Denies chest pain
ABD/GI: Reports nausea and diarrhea; Denies abdominal pain, vomiting, bloody stools or black stools
: Denies dysuria, frequency or difficulty voiding
Musculoskeletal: Reports other (left 4th toe redness and pain.)
Neurological: Denies dizzy, headache, weakness or numbness
Phy Exam
Physical Exam
Physical Exam:
GENERAL: No acute distress. A&Ox3.
CONSTITUTIONAL: Afebrile.
EYES: clear, conjunctivae normal
ENMT: moist mucus membranes, Pharynx nl
RESPIRATORY: Regular respirations, nonlabored, lungs clear.
CARDIOVASCULAR: Regular rate and rhythm, no murmurs, no rubs.
GI: Soft, nontender, normal BS
MUSCULOSKELETAL: Moves with ease. Well perfused.
SKIN: Warm, dry, pink.Left 4th toe erythematous, dry wound on tip, tender. No drainage.
PSYCH: Normal mood and affect. Well kept, interactive and appropriate
NEUROLOGIC: Awake, alert and oriented. No focal neurological deficits
Injury Course
Orders/Labs/Results
Orders:
Orders
10/22/24 19:19
Complete Blood Count/With Diff Urgent
Comprehensive Metabolic Panel Urgent
Abnormal Lab Results
10/22/24
19:19
MCV 78.3 L fL
(81.0-99.0)
MCH 24.9 L pg
(27.0-31.0)
MCHC 31.8 L g/dL
(33.0-37.0)
RDW 15.8 H %
(11.5-14.5)
Glucose 120 H mg/dl
(70-99)
10/22/24 19:19
10/22/24 19:19
MDM/Problems Addressed
Differential Diagnosis Includes:
cellulitis (acute vs chronic)
MDM/Problems Addressed:
49-year-old female past medical history of type 2 diabetes, diabetic neuropathy, right BKA, multiple toe amputations on the left, obstructive sleep apnea, obesity hypoventilation syndrome, chronic microcytic anemia, bipolar disorder, hypothyroidism,
chronic pain disorder, GERD, obesity.
Presents from [facility] for worse pain in left 4th toe, stomach upset she thinks from antibiotics and 'I feel like the infection is starting to go through my body.'
In ED 10/15-10/16 for left foot wound with pain in the toe. Evaluated by ID and Podiatry and Hospitalist. Had x-ray of the foot without evidence of osteomyelitis. Probe to bone was negative. Superficial wound. Evaluated by podiatry and
infectious disease both agree can be discharged back to long-term care facility with cefdinir and Flagyl twice a day for 14 days.
To F/U with podiatry as an out pt. for potential 4th toe amputation
Will need continued outpatient follow-up with podiatry for potential fourth toe amputation.
7:15 p.m.
Afebrile, NAD
CBC,CMP unremarkable
No indication for xray as she had this done recently, toe does not appear acutely infected.
Pt states she is having significant pain in the left 4th toe and asks 'what am I supposed to do about this pain?' She is on Suboxone. When I explained that there is no indication for opioids for pain she states 'well the antibiotics are making my
stomach hurt. Denies vomiting. States she's been having 3-4 episodes watery diarrhea daily since starting the antibiotics. States ''I need IV antibiotics my stomach can't tolerate them.'
Pt has been laying quietly in her room since arrival
Mildly annoyed states she though we could amputate the toe here.
Case discussed with Dr. Rae who agrees, pt can be discharged to f/u as instructed with Podiatry to discuss amputation.
No diarrhea since arrival.
10:00 p.m.
Gave pt sandwich tray, she was thankful. Remains quiet, awaiting ambulance ride home.
*Critical Care Note
Total Time (30-74mins, 75-104mins- exclusive of procedures): Not Applicable
ED Attending Note
-
Portions of this chart may have been created with voice recognition software.� Occasional wrong word or��sound alike� substitutions may have occurred due to the inherent limitations of voice recognition software.
Discharge Plan
Departure
Patient Disposition: [facility]/SNF
Date of Disposition: 10/22/24
Time of Disposition: 20:54
Condition: Fair
Discharge Problem:
Pain and swelling of toe
Prescriptions:
No Action
metformin 500 mg Tablet
500 mg PO BIDWMEAL
sennosides [senna] 8.6 mg Tablet
17.2 mg PO HS
acetaminophen 325 mg Tablet
650 mg PO Q6HPRN PRN (Reason: mild pain/temp>100.4)
lamotrigine [Lamictal] 200 mg Tablet
250 mg PO BID
polyethylene glycol 3350 [Miralax] 17 gram Powder In Packet
17 g PO DAILY
ondansetron HCl 4 mg Tablet
8 mg PO Q8HPRN PRN (Reason: nausea)
loperamide [Imodium A-D] 2 mg Tablet
2 mg PO [id number] PRN (Reason: diarrhea)
clonidine HCl 0.2 mg Tablet
0.2 mg PO Q12H
methocarbamol 750 mg Tablet
750 mg PO Q6HPRN PRN (Reason: muscle spams)
magnesium hydroxide [Milk of Magnesia] 400 mg/5 mL Suspension
30 ml PO DAILYPRN PRN (Reason: if no bm in 3 days)
levothyroxine 50 mcg Tablet
50 mcg PO DAILY
pantoprazole 40 mg Tablet,Delayed Release (Dr/Ec)
40 mg PO BID
Fleet Enema 19-7 gram/118 mL Enema
118 ml CO DAILYPRN PRN (Reason: if suppository is ineffective)
docusate sodium [Colace] 100 mg Capsule
100 mg PO BID
folic acid 1 mg Tablet
1 mg PO DAILY
furosemide 20 mg Tablet
20 mg PO BID
eucalyptus-menthol Lozenge
3.1 mg MUCOUS MEMBRANE Q1HPRN PRN (Reason: cough)
sodium chloride 0.65 % Aerosol,[place]
1 spray INTRANASAL [id number] PRN (Reason: dry nasal)
fenofibrate 54 mg Tablet
54 mg PO DAILY
melatonin 10 mg Tablet
20 mg PO HS
Ozempic 0.25 mg or 0.5 mg (2 mg/3 mL) Pen Injector
1 mg SC TU
lurasidone [Latuda] 40 mg Tablet
40 mg PO BID Qty: 0 0RF
hydroxyzine HCl 50 mg Tablet
100 mg PO HS
hydroxyzine HCl 50 mg Tablet
50 mg PO Q6HPRN PRN (Reason: anxiety)
losartan 25 mg Tablet
25 mg PO DAILY
escitalopram oxalate [Lexapro] 10 mg Tablet
10 mg PO DAILY
cetirizine [Zyrtec] 10 mg Tablet
10 mg PO HS
capsaicin 0.075 % Cream
1 applic TOPICAL Q8HPRN PRN (Reason: 8g to affected area)
acetaminophen [Tylenol Extra Strength] 500 mg Tablet
1,000 mg PO TIDPRN
bisacodyl [Dulcolax (bisacodyl)] 10 mg Suppository
10 mg CO DAILYPRN PRN (Reason: if no bm aftr mom)
diphenhydramine HCl [Benadryl] 25 mg Capsule
25 mg PO [id number] PRN (Reason: itching)
nystatin 100,000 unit/gram Powder
1 applic TOPICAL BID
diazepam [Valium] 5 mg Tablet
5 mg PO DAILYPRN PRN (Reason: 30 minutes prior to mri, may repeat once)
Biofreeze (menthol) 5 % Adhesive Patch,Medicated
1 patch TOPICAL DAILYPRN PRN (Reason: right shoulder)
cholecalciferol (vitamin D3) [Vitamin D3] 25 mcg (1,000 unit) Tablet
25 mcg PO DAILY
budesonide-formoterol [Symbicort] 80-4.5 mcg/actuation Hfa Aerosol Inhaler
2 inh INHALATION R BID
buprenorphine-naloxone [Suboxone] 2-0.5 mg Film
1 film BUCCAL BID
mupirocin 2 % Ointment
1 applic topical TIDPRN PRN (Reason: left toe wound) Qty: 15 0RF
metronidazole 500 mg Tablet
500 mg PO BID 14 Days Qty: 28 0RF
cefdinir 300 mg capsule
300 mg PO BID 14 Days Qty: 28 0RF
Referrals:
Jarett Sarkar, [Family Provider] -
Jazmyn Rutledge DPM [Active] - Next open appointment
Activity Restrictions/Additional Instructions:
As we discussed, make appointment with the [facility] to discuss having the toe amputated.
Continue your Suboxone as ordered.
Continue your Pantoprazole for your stomach upset.
You will be finished with the antibiotics in 7 more days and your stomach should feel better.
Interventions
Interventions:
*Risk Screen - Suicide Last Done: 10/22/24 18:49
*General Assessment Last Done: 10/22/24 18:49
*Neglect/Abuse Screening Last Done: 10/22/24 18:49
*ED COVID-19 Vaccine History Last Done: 10/22/24 18:49
*Nursing Disposition Last Done: 10/23/24 00:03
ED-Musculoskeletal Assessment Last Done: 10/22/24 18:53
Discharge Date and Time
Discharge Date/Time: 10/23/24 00:04
Print Language: ITALIAN
[2024-10-22 19:29] LABS: % Basophils 0.7 % (0-2); % Eosinophils 4.6 % (0-6); % Immature Granulocytes 0.3 % (0-0.5); % Lymphocytes 36.9 % (20.5-51.1); % Monocytes 6.3 % (1.7-9.3); % Neutrophils 51.2 % (42.2-75.2); Absolute Basophils 0.1 10^3/uL (0-0.2); Absolute Eosinophils 0.3 10^3/uL (0-0.7); Absolute Lymphocytes 2.6 10^3/uL (1.2-3.4); Absolute Monocytes 0.5 10^3/uL (0.1-0.6); Absolute Neutrophils 3.7 10^3/uL (1.4-6.5); Hematocrit 39.6 % (37.0-47.0); Hemoglobin 12.6 g/dL (12.0-16.0); Mean Corp Hgb Conc. 31.8 g/dL (33.0-37.0); Mean Corpuscular Hgb 24.9 pg (27.0-31.0); Mean Corpuscular Volume 78.3 fL (81.0-99.0); Mean Platelet Volume 8.6 fL (7.4-10.4); Nucleated Red Blood Cells % 0 %; Platelet Count 330 10^3/uL (130-400); Red Blood Cell Count 5.06 10^6/uL (4.20-5.40); Red Cell Dist. Width 15.8 % (11.5-14.5); White Blood Cell Count 7.2 10^3/uL (4.8-10.8)
[2024-10-22 19:42] LABS: ALT (SGPT) 17 U/L (0-35); AST (SGOT) 27 U/L (14-36); Albumin 3.9 g/dl (3.5-5.0); Alkaline Phosphatase 96 U/L (38-126); Blood Urea Nitrogen 10 mg/dl (7-17); Calcium 9.2 mg/dl (8.4-10.2); Carbon Dioxide 25 mmol/L (22-30); Chloride 103 mmol/L (98-107); Estimated Creatinine Clearance 90 ml/min; Glucose 120 mg/dl (70-99); Potassium 3.9 mmol/L (3.5-5.1); Sodium 138 mmol/L (135-145); Total Bilirubin 0.2 mg/dl (0.2-1.3); Total Protein 6.5 g/dl (6.3-8.2); eGFR > 60.00
[2024-10-22 20:58] VITALS: BP 122/74
[2024-10-23 00:03] VITALS: BP 132/75
== END 2024-10-23 00:04 ==
LOC: EMR 18:42
PROVIDERS: Registered Nurse; EMERGENCY PHYSICIAN Emergency Medicine; FAMILY PHYSICIAN Internal Medicine
DX: M79.675 Pain in left toe(s) (principal); M79.89 Other specified soft tissue disorders; K30 Functional dyspepsia; R11.0 Nausea; R19.7 Diarrhea, unspecified; L53.9 Erythematous condition, unspecified; E11.40 Type 2 diabetes mellitus with diabetic neuropathy, unspecified; G47.33 Obstructive sleep apnea (adult) (pediatric); F31.9 Bipolar disorder, unspecified; E66.9 Obesity, unspecified; E03.9 Hypothyroidism, unspecified; E78.00 Pure hypercholesterolemia, unspecified; F41.9 Anxiety disorder, unspecified; I10 Essential (primary) hypertension; G89.29 Other chronic pain; F17.200 Nicotine dependence, unspecified, uncomplicated; J45.909 Unspecified asthma, uncomplicated; K21.9 Gastro-esophageal reflux disease without esophagitis; D50.9 Iron deficiency anemia, unspecified; Z90.49 Acquired absence of other specified parts of digestive tract; Z89.511 Acquired absence of right leg below knee; Z89.422 Acquired absence of other left toe(s); Z98.84 Bariatric surgery status; Z88.5 Allergy status to narcotic agent; Z88.0 Allergy status to penicillin; Z88.8 Allergy status to other drugs, medicaments and biological substances; Z88.6 Allergy status to analgesic agent; Z88.1 Allergy status to other antibiotic agents; Z91.040 Latex allergy status
CPT/HCPCS: 99283; 80053; 85025

== ENCOUNTER 2025-03-09 09:31 | Inpatient (IN) | payer OTHER, SELFPAY ==
[2025-03-06 21:14] VITALS: BP 108/73; BMI 37.1
[2025-03-06 21:34] LABS: % Basophils 0.4 % (0-2); % Eosinophils 1.2 % (0-6); % Immature Granulocytes 0.2 % (0-0.5); % Lymphocytes 19.4 % (20.5-51.1); % Monocytes 6.2 % (1.7-9.3); % Neutrophils 72.6 % (42.2-75.2); Absolute Basophils 0.1 10^3/uL (0-0.2); Absolute Eosinophils 0.1 10^3/uL (0-0.7); Absolute Lymphocytes 2.3 10^3/uL (1.2-3.4); Absolute Monocytes 0.8 10^3/uL (0.1-0.6); Absolute Neutrophils 8.7 10^3/uL (1.4-6.5); Hematocrit 41.7 % (37.0-47.0); Hemoglobin 13.5 g/dL (12.0-16.0); Mean Corp Hgb Conc. 32.4 g/dL (33.0-37.0); Mean Corpuscular Hgb 26.3 pg (27.0-31.0); Mean Corpuscular Volume 81.3 fL (81.0-99.0); Mean Platelet Volume 8.7 fL (7.4-10.4); Nucleated Red Blood Cells % 0 %; Platelet Count 360 10^3/uL (130-400); Red Blood Cell Count 5.13 10^6/uL (4.20-5.40); Red Cell Dist. Width 13.8 % (11.5-14.5)
[2025-03-06 21:45] LABS: Lactic Acid 2.7 mmol/L (0.7-2.0)
[2025-03-06 22:08] LABS: ALT (SGPT) 15 U/L (0-35); AST (SGOT) 19 U/L (14-36); Albumin 4.5 g/dl (3.5-5.0); Alkaline Phosphatase 80 U/L (38-126); Blood Urea Nitrogen 23 mg/dl (7-17); Calcium 9.8 mg/dl (8.4-10.2); Carbon Dioxide 26 mmol/L (22-30); Chloride 101 mmol/L (98-107); Glucose 128 mg/dl (70-99); Potassium 4.2 mmol/L (3.5-5.1); Sodium 136 mmol/L (135-145); Total Bilirubin 0.6 mg/dl (0.2-1.3); Total Protein 7.4 g/dl (6.3-8.2); eGFR 50.41
[2025-03-06 23:11] VITALS: BP 106/72
[2025-03-06] MEDS: NSS 1000 IV (23:47)
--- NOTE | 2025-03-06 23:51 | ED.SKININJ ---
HPI-Injury
General
Chief Complaint: Skin Problem
Source: patient
Exam Limitations: none
Time Seen by Provider: 03/06/25 22:33
Nursing documentation reviewed up to this point in time: agreed with
History of Present Illness-Injury
Is this injury a work related problem?: No
Is pt an associate of [facility]?: No
Initial Injury comments:
Patient to ED with complaint of pain to left 4th toe, drainage and foul smell from wound to left 4th toe. SHe states she was placed on doxycycline 3 days ago without improvement. Sent to ED for eval. SHe was admitted here in October for similar
presentation. Wound found to be superficial and she was eventually discharged home with instructions to followu p with podiatry for amputation of toe. She is not clear on why this did not occur. She is currently afebrile. WBC 12, lactic 2.7
Brought to ED by EMS for eval.
Past History
Past History
ED Past Medical History: Asthma, GERD, HTN, Hypercholesterolemia, NIDDM, Hypothyroidism and Psychiatric (Anxiety, bipolar disorder)
ED Past Surgical History: Cholecystectomy, Gynecological (Tubel), Orthopedic (RBKA) and Other (Umbilical hernia repair, Gastric bypass sleeve)
Social History
Tobacco: Smoker
Alcohol: None
Drug: Other
Personal:
Living: custodial
Employment: Other
Family History
Family History: Other
Review of Systems
Review of Systems
Allergies reviewed?: Yes
All Other Systems: ROS reviewed and negative except as documented in HPI and ROS
Constitutional: Reports no symptoms
EENT: Reports no symptoms
Respiratory: Reports no symptoms
Cardiac: Reports no symptoms
ABD/GI: Reports no symptoms
Musculoskeletal: Reports joint pain (Pain left 4th toe)
Skin: Reports other (ulceration at distal left 4th toe. Draining foul smelling yellow drainage. )
Neurological: Reports no symptoms
Psychiatric: Reports no symptoms
Phy Exam
General Physical Exam
General Presentation: mild distress
General age: appears stated age
General Skin: warm and dry
General Habitus: normal
General Mental: alert
Musculoskeletal Exam
Musculoskeletal Exam: neuro vasc intact
Skin Exam
Skin Exam: normal color, warm/dry, no rash and other (Ulceration to left distal 4th toe. +swelling, yellow foul smelling discharge.)
Psychiatric Exam
Psychiatric Exam: normal mood/affect
Course
Orders/Labs/Results
Orders:
Orders
03/06/25 21:25
Complete Blood Count/With Diff Urgent
Comprehensive Metabolic Panel Urgent
Lactic Acid Urgent
03/06/25 23:13
Toes 2 Views, Left CR [CR Toe(s) Min 2 Vw Left] Urgent
Comment:
Reason For Exam: 4th toe pain, wound
03/06/25 23:20
0.9% Sodium Chloride 1000 ml [Nss] 1,000 ml IV BOLUS
03/06/25 23:48
Wound Culture [Wound/Abscess/Other Culture] Urgent
SEVERINO Source: Toe
Specimen Description:
Date Specimen was Collected: 03/06/25
Time Specimen was Collected: 23:24
Meropenem [Merrem] 1,000 mg IV NOW STA
03/07/25 00:02
Sterile Water [Sterile Water For Injection] 20 ml .ROUTE .STK-MED
03/07/25 01:17
DAPTOmycin [Cubicin] 400 mg Syringe [Syringe-Pump] 0 ml IV NOW
03/07/25 02:23
Admit/Transfer Patient As Directed
Co-Sign Provider:
Level of Care: Observation services
Assign to:: Medical/Surgical
Physician / Group: Slick
Diagnosis: L 4th Toe Wound, JAMESON
03/07/25 02:24
PRN Pain Medication Management As Directed
May give lesser potent ordered pain med per pt: Yes
preference::
Protocol:: Medication orders for pain may be administered in a
manner that supports deferring to patient preference
when the pt is:
- Requesting an ordered lesser potent pain medication.
Least to most potent pain medications are defined
as: acetaminophen < NSAID < tramadol < opioids
(morphine, oxycodone, hydromorphone).
- Requesting a lesser dose of the same medication IF
ORDERED.
- Requesting a less intrusive route of administration
if both routes are prescribed by the provider (PO <
IV).
03/07/25 02:26
Code Status As Directed
Resuscitation Status: Full Code
03/07/25 03:37
0.9% Sodium Chloride 1000 ml [Nss] 1,000 ml IV 100 mls/hr
Acetaminophen [Tylenol] 650 mg PO Q4HPRN PRN
Albuterol Nebs [Ventolin Nebules] 2.5 mg INH R Q4HPRN PRN
Dextrose 50%-Water [Dextrose 50% Syringe] 12.5 grams IV [id number] PRN
Glucagon [GlucaGen] 1 mg IM PRN PRN
HydrOXYZINE [Atarax] 50 mg PO Q6HPRN PRN
Methocarbamol 750 mg PO Q6HPRN PRN muscle spams
Saline Mist 1 drops NASAL [id number] PRN dry nasal
03/07/25 03:37
Consult Notification Routine
Specialty to Notify: Podiatry
Date consulting provider notified: 03/07/25
Time consulting provider notified: 12:53
Notified:: Provider
Comment: CAPRICE GUZMÁN
PODIATRY CONSULT Routine
Consulting Provider: Caprice Guzmán
Was physician already notified: No
Reason for consult: L 4th Toe Wound
Activity As Directed
Activity Level: Ambulate
With Assistance
Bedside Glucose Monitoring As Directed
Frequency: AC&HS
Additional Instructions:: Change to q6h if pt on TPN, tube feeding or not eating
I/O [Intake/ Output] As Directed
Frequency: Per unit guidelines
Vital Signs As Directed
Frequency: Per unit guidelines
Weight As Directed
Frequency: Daily
Oxygen Therapy [O2 Therapy] [RESP] Routine
Titrate/Wean O2 to maintain O2 sat greater than (%): 94
DX Deep Vein Thrombosis Video Routine
03/07/25 05:25
Basic Metabolic Panel IN AM
Complete Blood Count/No Diff IN AM
Glycohemoglobin (HgbA1c) IN AM
Lactate Level [Lactic Acid] IN AM
03/07/25 Breakfast
2000 calorie (17 carb) Diabetic
At Your Request: Full Participation
Levothyroxine [Synthroid] 50 mcg PO DAILY @ 0600
03/07/25 07:30
Insulin Aspart Corrective Low [Novolog Flexpen-Low Resistance] See Protocol SC AC
03/07/25 08:00
Budesonide/Formoterol 80/4.5 [Symbicort 80/4.5 Mcg Inhaler] 2 puff INH R BID
Buprenorphine [Subutex] 8 mg SL BID
Cholecalciferol (Vitamin D3) [VITAMIN D3 (cholecalciferol)] 25 mcg PO DAILY
Clonidine [Catapres] 0.2 mg PO Q12
Escitalopram Oxalate [Lexapro] 10 mg PO DAILY
FOLic ACID [Folvite] 1 mg PO DAILY
Lamotrigine [Lamictal] 200 mg PO BID
Lurasidone HCl [Latuda] 60 mg PO DAILY
Miconazole Nitrate [Desenex/Mitrazol/Zeasorb] See Dose Instructions TOPICAL BID
Pantoprazole [Protonix] 40 mg PO BID
03/07/25 18:00
Enoxaparin Sodium [Lovenox] 40 mg SC QPM
03/07/25 22:00
Cetirizine HCl [Zyrtec] 10 mg PO HS
HydrOXYZINE [Atarax] 100 mg PO HS
Lurasidone HCl [Latuda] 40 mg PO HS
Abnormal Lab Results
03/06/25
21:25
WBC 12.0 H 10^3/uL
(4.8-10.8)
MCH 26.3 L pg
(27.0-31.0)
MCHC 32.4 L g/dL
(33.0-37.0)
Absolute Neuts (auto) 8.7 H 10^3/uL
(1.4-6.5)
Absolute Monos (auto) 0.8 H 10^3/uL
(0.1-0.6)
Lymphocytes % 19.4 L %
(20.5-51.1)
BUN 23 H mg/dl
(7-17)
Creatinine 1.3 H mg/dL
(0.6-1.0)
Glucose 128 H mg/dl
(70-99)
Lactic Acid 2.7 H mmol/L
(0.7-2.0)
03/06/25 21:25
03/06/25 21:25
Vital Signs
Initial and Last Documented VS:
Initial Vital Signs
Temp Pulse Resp BP Pulse Ox
98.4 F 87 16 108/73 99
03/06/25 21:14 03/06/25 21:14 03/06/25 21:14 03/06/25 21:14 03/06/25 21:14
Last Documented Vital Signs
Temp Pulse Resp BP Pulse Ox
97.9 F 61 17 104/66 95
03/08/25 15:34 03/08/25 20:18 03/08/25 15:34 03/08/25 20:18 03/08/25 15:34
*Critical Care Note
Total Time (30-74mins, 75-104mins- exclusive of procedures): Not Applicable
Update Note
Update Note:
Patient to ED with complaint of pain to left 4th toe. She has a chronic wound to this toe. She was started on doxy 3 days ago but states pain and discharge from toe wound is worsening. Afebrile. Labs reviewed. WBC 12, lactic 2.7. VSS. Will
admit to hospitalist service. Antibiotics started. PCN, Vanco allergic. She was place on Daptomycin and Meropenum at last admission and tolerated both, will repeat.
ED Attending Note
-
Portions of this chart may have been created with voice recognition software.� Occasional wrong word or��sound alike� substitutions may have occurred due to the inherent limitations of voice recognition software.
Discharge Plan
Departure
Patient Disposition: Admit
Date of Disposition: 03/07/25
Time of Disposition: 00:03
Presentation/result/management discussed w/ accepting MD/DO: Hospitalist
Patient with high blood pressure during this ER visit?: No
Condition: Fair
Discharge Problem:
Cellulitis of left toe, Sepsis
Interventions
Interventions:
*Risk Screen - Suicide Last Done: 03/06/25 21:18
*General Assessment Last Done: 03/06/25 23:54
*Neglect/Abuse Screening Last Done: 03/06/25 21:18
*ED- Fall Risk Assessment Last Done: 03/07/25 03:39
*ED COVID-19 Vaccine History Last Done: 03/07/25 03:39
*Nursing Disposition Last Done: 03/07/25 03:41
ED-Skin Assessment Last Done: 03/07/25 00:43
Discharge Date and Time
Discharge Date/Time: 03/07/25 03:42
[2025-03-07] VITALS (9 sets, daily range): BP systolic 106–143; BP diastolic 71–94; BMI 32.9
[2025-03-07] MEDS: MERREM 1000 MG IV (00:04)
--- NOTE | 2025-03-07 02:29 | HPS.HSE ---
Family Physician
-
Family Physician: Jarett Sarkar, DO
Chief Complaint
-
L 4th Toe Wound
History of Present Illness
Patient is a 49y F with PMH significant for DM-II, bipolar disorder and multiple digital amputations who presents to ED complaining of wound on the 4th toe of her L foot. Patient states that she 'first noticed' the wound about 4 days ago. She
was started on doxycycline at the [facility] 3 days ago and states that she has just felt worse and worse since that time. Patient states that she feels 'infection running through my body'.
Patient was hospitalized for similar presentation in October. Current wound appears similar to the one described at that time.
Medical History
Past Medical History
Past Medical History: Reports Other (type 2 diabetes, diabetic neuropathy, right BKA, multiple toe amputations on the left, obstructive sleep apnea, obesity hypoventilation syndrome, chronic microcytic anemia, bipolar disorder, hypothyroidism,
chronic pain disorder, GERD, obesity,)
Past Surgical History: Reports Other ( Cholecystectomy, Gynecological (Tubel), Orthopedic (RBKA) and Other (Umbilical hernia repair, Gastric bypass sleeve))
Social History
Tobacco: Smoker
Alcohol: None
Drug: None
Family History
Family History: Not pertinent
Allergies / Home Medications
Allergies reflects when Allergies were last updated in [facility].
Home Medications with original date entered in [facility]
Allergy/Medication List:
Allergies
Allergy/AdvReac Type Severity Reaction Status Date / Time
aspirin Allergy Unknown Verified 10/18/24 03:07
barium iodide Allergy Unknown Verified 10/18/24 03:07
codeine Allergy Vomiting Verified 10/18/24 03:07
latex Allergy Rash Verified 10/18/24 03:07
Penicillins Allergy Unknown, Verified 10/18/24 13:15
tolerated
ceftriaxone
and
cefepime
in past
vancomycin AdvReac Rash Verified 10/18/24 13:18
Home Medications
acetaminophen 325 mg tablet 650 mg PO Q6HPRN PRN mild pain/temp>100.4 02/18/24
clonidine HCl 0.2 mg tablet 0.2 mg PO Q12H Blood Pressure 02/18/24
eucalyptus-menthol oral mucosal lozenge 3.1 mg mucous membrane Q1HPRN PRN cough 02/18/24
fenofibrate 54 mg tablet 54 mg PO DAILY HIGH TRIGLYCERIDE 02/18/24
folic acid 1 mg tablet 1 mg PO DAILY Supplement 02/18/24
furosemide 20 mg tablet 20 mg PO BID Fluid Retention/Swelling 02/18/24
lamotrigine 200 mg tablet (Lamictal) 250 mg PO BID Mental Health/Anxiety 02/18/24
levothyroxine 50 mcg tablet 50 mcg PO DAILY Thyroid 02/18/24
loperamide 2 mg tablet (Imodium A-D) 2 mg PO [id number] PRN diarrhea 02/18/24
magnesium hydroxide 400 mg/5 mL oral suspension (Milk of Magnesia) 30 ml PO DAILYPRN PRN if no bm in 3 days 02/18/24
melatonin 10 mg tablet 20 mg PO HS Sleep 02/18/24
metformin 500 mg tablet 500 mg PO BIDWMEAL Diabetes 02/18/24
methocarbamol 750 mg tablet 750 mg PO Q6HPRN PRN muscle spams 02/18/24
ondansetron HCl 4 mg tablet 8 mg PO Q8HPRN PRN nausea 02/18/24
pantoprazole 40 mg tablet,delayed release 40 mg PO BID GERD 02/18/24
semaglutide 0.25 mg or 0.5 mg (2 mg/3 mL) subcutaneous pen injector (Ozempic) 1 mg SC TU Diabetes 02/18/24
sodium chloride 0.65 % nasal spray aerosol 1 spray intranasal [id number] PRN dry nasal 02/18/24
sodium phosphates 19 gram-7 gram/118 mL enema (Fleet Enema) 118 ml NV DAILYPRN PRN if suppository is ineffective 02/18/24
acetaminophen 500 mg tablet (Tylenol Extra Strength) 1,000 mg PO TIDPRN 10/18/24
bisacodyl 10 mg rectal suppository (Dulcolax (bisacodyl)) 10 mg NV DAILYPRN PRN if no bm aftr mom 10/18/24
budesonide-formoterol HFA 80 mcg-4.5 mcg/actuation aerosol inhaler (Symbicort) 2 inh inhalation R BID 10/18/24
capsaicin 0.075 % topical cream 1 applic topical Q8HPRN PRN 8g to affected area 10/18/24
cetirizine 10 mg tablet (Zyrtec) 10 mg PO HS 10/18/24
cholecalciferol (vitamin D3) 25 mcg (1,000 unit) tablet (Vitamin D3) 25 mcg PO DAILY 10/18/24
diphenhydramine HCl 25 mg capsule (Benadryl) 25 mg PO [id number] PRN itching 10/18/24
escitalopram oxalate 10 mg tablet (Lexapro) 10 mg PO DAILY 10/18/24
hydroxyzine HCl 50 mg tablet 50 mg PO Q6HPRN PRN anxiety 10/18/24
hydroxyzine HCl 50 mg tablet 100 mg PO HS 10/18/24
losartan 25 mg tablet 25 mg PO DAILY 10/18/24
menthol 5 % topical patch (Biofreeze (menthol)) 1 patch topical DAILYPRN PRN right shoulder 10/18/24
nystatin 100,000 unit/gram topical powder 1 applic topical BID under breasts 10/18/24
buprenorphine 8 mg-naloxone 2 mg sublingual tablet 1 tab sublingual BID 03/07/25
doxycycline hyclate 100 mg tablet 100 mg PO BID 03/07/25
lurasidone 40 mg tablet (Latuda) 40 mg PO HS 03/07/25
Review of Systems
-
History Source: Patient
A 12 point ROS was completed and negative except as noted: Yes
Constitutional: Reports Chills; Denies Fever
EENT: Denies Sore Throat
Respiratory: Denies Cough or Trouble Breathing
Cardiac: Denies Chest Pain or Palpitations
Abdomen/GI: Reports Abdominal Pain and Nausea; Denies Vomiting or Diarrhea
: Denies Dysuria, Frequency or Flank Pain
Musculoskeletal: Reports Joint Pain and Edema
Neurological: Reports Headache; Denies Dizzy
Physical Exam
Vital Signs
Vital Signs
Temp Pulse Resp BP Pulse Ox
98.4 F 68 9 125/76 96
03/06/25 21:14 03/07/25 02:00 03/07/25 02:00 03/07/25 02:00 03/07/25 02:00
Physical Exam
General: Other (49y F in no acute distress.)
HEENT: Moist mucous membranes, PERRLA and Other (Thick neck.)
Respiratory: Other (Decreased BS at bases - otherwise clear.)
Cardiac: S1/S2 and Regular Rhythm; No Murmur
GI: Soft, Non Tender, Non Distended and Normal Bowel Sounds
Musculoskeletal: Other (Multiple prior amputations of L toes. 4th toe with ulceration over the distal phalanx. No significant erythema, induration, bleeding or discharge. No lymphanigitis)
Neuro: AO x 3
Laboratory Results
-
03/06/25 21:25
03/06/25 21:25
Laboratory Results
Lactic Acid 2.7 mmol/L (0.7-2.0) H 03/06/25 21:25
Total Bilirubin 0.6 mg/dl (0.2-1.3) 03/06/25 21:25
AST 19 U/L (14-36) 03/06/25 21:25
ALT 15 U/L (0-35) 03/06/25 21:25
Alkaline Phosphatase 80 U/L (38-126) 03/06/25 21:25
Impression/Plan
-
A/P: Patient is a 49y F with PMH significant for DM-II, multiple prior digital amputations and bipolar disorder who presents to ED complaining of L 4th toe wound.
Left 4th Toe Wound
- Observe overnight for further evaluation and treatment.
- Despite stating that she noted this wound 4 days ago - it seems to be the same wound that was present in October.
- There is no evidence of active infection. Patient has 0/4 SIRS criteria.
- X-ray done in the ED and await formal read - though I see no significant changes from prior imaging.
- Local wound care.
- Will ask Podiatry to evaluate given previous evaluation / recommendations.
- Observe off of any further abx for now.
JAMESON
Elevated Lactate
- Hold Lasix. Gentle IVFs overnight.
- Hold ARB acutely.
- Follow for improvement in renal function / lactate level.
DM-II with Neuropathy
- Stable. Follow glucose and cover with SSI as needed.
- Update A1C.
Asthma without Acute Exacerbation
- Stable. Continue inhaled medications.
Bipolar Disorder
- Continue current med regimen without changes.
- Previously noted concerns re: patient apparent desire for amputation(s).
- Consider formal Psych eval.
Chronic Pain Syndrome
- Stable. Continue usual medications without changes.
Hypothyroidism
- Stable. Continue T4 supplementation.
Obesity due to excess calories
- Affects all aspects of care.
- Encourage healthy diet and activity as able with goal of weight loss.
DVT Prophylaxis: Lovenox
Code Status: Full
[2025-03-07] MEDS: CUBICIN 8 MG IV (03:25)
[2025-03-07] MEDS: NSS 1000 IV ×2 (04:08→15:30)
[2025-03-07] MEDS: SYNTHROID 50 MCG PO (04:08)
[2025-03-07] MEDS: TYLENOL 650 MG PO ×3 (04:15→22:03)
--- NOTE | 2025-03-07 05:25 | PTCARENOTE ---
Patient arrived to unit from ED via stretcher. Patient pulled over from stretcher to bed on . Pt requested diet change to a regular diet. CORIN Tejada notified. No new orders at this time. Patient c/o pain to L foot and requesting 'the
'D' pain medicine.' Patient then explained that she wanted 'dilaudid.' CORIN Tejada notified. No new orders. Patient agreeable to take Tylenol. Oriented to unit. Call downey within reach. Plan of care ongoing.
[2025-03-07 05:42] LABS: Hematocrit 37.6 % (37.0-47.0); Hemoglobin 12.4 g/dL (12.0-16.0); Mean Corpuscular Hgb 26.4 pg (27.0-31.0); Mean Platelet Volume 8.7 fL (7.4-10.4); Platelet Count 300 10^3/uL (130-400); Red Cell Dist. Width 13.8 % (11.5-14.5)
[2025-03-07 06:41] LABS: Blood Urea Nitrogen 22 mg/dl (7-17); Calcium 9.2 mg/dl (8.4-10.2); Carbon Dioxide 23 mmol/L (22-30); Chloride 108 mmol/L (98-107); Estimated Creatinine Clearance 75 ml/min; Glucose 92 mg/dl (70-99); Potassium 3.8 mmol/L (3.5-5.1); Sodium 138 mmol/L (135-145); eGFR > 60.00
[2025-03-07 07:45] LABS: Erythrocyte Sed Rate 9 mm/hour (0-20)
[2025-03-07] MEDS: SYMBICORT 80/4.5 MCG INHALER 2 PUFF INH (08:31)
[2025-03-07] MEDS: LAMICTAL 50 MG PO ×2 (10:18→21:54)
[2025-03-07] MEDS: PROTONIX 40 MG PO ×2 (10:18→21:54)
[2025-03-07] MEDS: VITAMIN D3 (cholecalciferol) 25 MCG PO (10:19)
[2025-03-07] MEDS: LEXAPRO 10 MG PO (10:19)
[2025-03-07] MEDS: FOLVITE 1 MG PO (10:19)
[2025-03-07] MEDS: CATAPRES 0.2 MG PO ×2 (10:19→22:02)
[2025-03-07] MEDS: LAMICTAL 200 MG PO ×2 (10:19→21:54)
[2025-03-07] MEDS: DESENEX/MITRAZOL/ZEASORB 1 APPLIC TOPICAL ×2 (10:20→21:53)
[2025-03-07] MEDS: SUBUTEX 8 MG SL ×2 (10:21→22:01)
[2025-03-07] MEDS: LATUDA 60 MG PO (10:21)
--- NOTE | 2025-03-07 11:01 | W.PN.HOSP.TC ---
Today's Communication/Plan
-
Podiatry evaluation
Assessment / Plan
Assessment / Plan
Physical Exam
General: Other (49y F in no acute distress.)
HEENT: Moist mucous membranes, PERRLA and Other (Thick neck.)
Respiratory: Other (Decreased BS at bases - otherwise clear.)
Cardiac: S1/S2 and Regular Rhythm; No Murmur
GI: Soft, Non Tender, Non Distended and Normal Bowel Sounds
Musculoskeletal: Other (Multiple prior amputations of L toes. 4th toe with ulceration over the distal phalanx. No significant erythema, induration, bleeding or discharge. No lymphanigitis)
Neuro: AO x 3
A/P:
Left 4th Toe Wound
- Observe overnight for further evaluation and treatment.
- Despite stating that she noted this wound 4 days ago - it seems to be the same wound that was present in October.
- There is no evidence of active infection. Patient has 0/4 SIRS criteria.
- X-ray done in the ED and await formal read - though I see no significant changes from prior imaging.
- Local wound care.
- Will ask Podiatry to evaluate given previous evaluation / recommendations.
- Observe off of any further abx for now.
JAMESON
Elevated Lactate
- Hold Lasix. Gentle IVFs overnight.
- Hold ARB acutely.
- Follow for improvement in renal function / lactate level.
DM-II with Neuropathy
- Stable. Follow glucose and cover with SSI as needed.
- Update A1C.
Asthma without Acute Exacerbation
- Stable. Continue inhaled medications.
Bipolar Disorder
- Continue current med regimen without changes.
Chronic Pain Syndrome
- Stable. Continue usual medications without changes.
Hypothyroidism
- Stable. Continue T4 supplementation.
Obesity due to excess calories
- Affects all aspects of care.
- Encourage healthy diet and activity as able with goal of weight loss.
DVT Prophylaxis: Lovenox
Code Status: Full
Anticipated Discharge: > 48 hours
Subjective/Interval History
-
Date of Service: March 07, 2025
Patient still having pain in the toes. No nausea vomiting or diarrhea. Afebrile
Objective Data
-
Labs:
Laboratory Results
03/07/25
05:25
WBC 10.0
Hgb 12.4
Hct 37.6
Plt Count 300
Sodium 138
Potassium 3.8
Chloride 108 H
Carbon Dioxide 23
BUN 22 H
Creatinine 1.0
Glucose 92
Calcium 9.2
Vital Signs:
Vital Signs
Temp Pulse Resp BP Pulse Ox
98.1 F 71 16 143/87 97
03/07/25 07:55 03/07/25 08:34 03/07/25 08:34 03/07/25 07:55 03/07/25 08:34
I&O
03/06/25 03/07/25 03/08/25
06:59 06:59 06:59
Intake Total 1480 / 1480
Balance 1480 / 1480
[2025-03-07 12:29] LABS: Glucose - Point of Care 99 mg/dl (70-99)
[2025-03-07 14:08] LABS: Glycohemoglobin (HgbA1c) 5.3 % (4.0-5.6)
--- NOTE | 2025-03-07 14:28 | CON.ID ---
Consultation
-
Date/Time Consultation Requested: 03/07/25 11:09
Date/Time Consultation Performed: 03/07/25 14:28
Requesting Provider: Dr Blake
Performing Provider: Dr Chavez
Reason for Consultation: left toe infection
Chief Complaint / Past History
Chief Complaint
L 4th Toe Wound
History of Present Illness
Ms Barba is a 49 year old female with history of DM2 with diabetic neuropathy, R BKA and multiple toe amputations on the left, bipolar disorder who presented here today from a nursing facility for a new wound on the left 4th digit which she
believes has been present for the last several days. She reports she was started on doxycycline however feels concerned that she may heve developed infection. Staff have noted that she had a similar wound evaluated in Oct 2024 in the ER; patient
tells me the lesion healed and subsequently reopened.
Patient has lost substantial weight over the last year about 50 kg - she is on ozempic.
Since arrival here she has been afebrile, bp stable, wbc initially 12 now 10, hgb 12.4, plt 300, no L shift, cr 1.3 initially now 1.0, na 138, k 3.8, lfts wnl, xray consistent with osteomyelitis of the left 4th digit, not previously colonized with
MRSA, a wound culture has been done, a1c was 5.3, patient was prescribed daptomycin and meropenem x1 dose and is not currently on antibiotics, ID is consulted for assistance with management.
Past History
Additional Past Medical History:
type 2 diabetes, diabetic neuropathy, right BKA, multiple toe amputations on the left, obstructive sleep apnea, obesity hypoventilation syndrome, chronic microcytic anemia, bipolar disorder, hypothyroidism, chronic pain disorder, GERD, obesity
Additional Past Surgical History:
Cholecystectomy, Gynecological (Tubel), Orthopedic (RBKA) and Other (Umbilical hernia repair, Gastric bypass sleeve
Allergy History:
aspirin Allergy (Verified 10/18/24 03:07)
Unknown
barium iodide Allergy (Verified 10/18/24 03:07)
Unknown
codeine Allergy (Verified 10/18/24 03:07)
Vomiting
latex Allergy (Verified 10/18/24 03:07)
Rash
Penicillins Allergy (Verified 10/18/24 13:15)
Unknown, tolerated ceftriaxone and cefepime in past
vancomycin Adverse Reaction (Verified 10/18/24 13:18)
VIR
Medications Reviewed: Yes
Social History
Tobacco: Smoker
Alcohol: None
Drug: None
Family History
Family History: Not Pertinent
Review of Systems
Review of Systems
General: Negative Fever or Chills
All systems: All other systems were reviewed and were negative
Vital Signs
Temp Pulse Resp BP Pulse Ox
98.1 F 71 16 143/87 97
03/07/25 07:55 03/07/25 08:34 03/07/25 08:34 03/07/25 07:55 03/07/25 08:34
Physical Exam
Physical Exam
Constitutional: No Acute Distress and Chronically Ill
Cardiovascular: Regular Rate and S1/S2; Negative Murmur or Rub
Pulmonary: Clear and Symmetric; Negative Wheezes, Rales or Rhonchi
Gastrointestinal: Soft, Non Tender, Non Distended and Normal Bowel Sounds
Skin: Warm and Dry; Negative Rash or Jaundice
Lab / Diagnostic Study Results
03/07/25 05:25
03/07/25 05:25
Abs Immat Gran (auto) 0.0 10^3/uL (0-0.05) 03/06/25 21:25
Absolute Neuts (auto) 8.7 10^3/uL (1.4-6.5) H 03/06/25 21:25
Absolute Lymphs (auto) 2.3 10^3/uL (1.2-3.4) 03/06/25 21:25
Absolute Monos (auto) 0.8 10^3/uL (0.1-0.6) H 03/06/25 21:25
Absolute Basos (auto) 0.1 10^3/uL (0-0.2) 03/06/25 21:25
Immature Gran % 0.2 % (0-0.5) 03/06/25 21:25
Neutrophils % 72.6 % (42.2-75.2) 03/06/25 21:25
Lymphocytes % 19.4 % (20.5-51.1) L 03/06/25 21:25
Monocytes % 6.2 % (1.7-9.3) 03/06/25 21:
Eosinophils % 1.2 % (0-6) 03/06/25:
Basophils % 0.4 % (0-2) 03/06/25 21:25
ESR 9 mm/hour (0-20) 03/07/25 05:25
ESR Cancelled 03/07/25 05:25
Lactic Acid 2.0 mmol/L (0.7-2.0) 03/07/25 05:25
Microbiology Results
Micro:
03/06/25 23:48 Wound Culture - Pending
Toe Gram Stain - Preliminary
03/07/25 04:45 MRSA Screen - Pending
Nose
Assessment / Plan
Chronic osteomyelitis of the L 4th digit
Chronic wound
Obese on ozempic with 50 K weight loss in the last year
Reported allergy to penicillin - 'coughing up blood'
VIR to vancomycin
- superifical wound cultures most often do no correlate with underlying pathogen causing osteomyelitis, s aureus is a possible exception
- if febrile, then would obtain blood cultures x2 while febrile
- previously colonized with MSSA, presenting from a facility but not known to be colonized with MRSA - screen pending
- VIR is not a contraindication to future use of vancomycin; she is less likely to have this reaction given her substantial weight loss.
- challenge with augmentin today
- my clinical concern is low; if she passes she can continue on augmentin for present
- follow clinically
[2025-03-07] MEDS: AUGMENTIN 250 MG/125 MG 1 TABLET PO (15:21)
[2025-03-07 17:04] LABS: Glucose - Point of Care 109 mg/dl (70-99)
[2025-03-07] MEDS: AUGMENTIN 875 MG/125 MG 1 TABLET PO (18:02)
[2025-03-07] MEDS: LOVENOX 40 MG SC (18:02)
[2025-03-07] MEDS: ZOFRAN 4 MG IV ×2 (18:03→23:28)
[2025-03-07] MEDS: SYMBICORT 80/4.5 MCG INHALER INH (19:51)
[2025-03-07 21:44] LABS: Glucose - Point of Care 102 mg/dl (70-99)
[2025-03-07] MEDS: ATARAX 100 MG PO (22:02)
[2025-03-07] MEDS: LATUDA 40 MG PO (22:03)
[2025-03-07] MEDS: ZYRTEC 10 MG PO (22:03)
[2025-03-08] MEDS: MELATONIN 10 MG PO ×2 (00:29→21:57)
[2025-03-08 04:52] VITALS: BMI 33.2
[2025-03-08 05:37] LABS: % Basophils 0.5 % (0-2); % Eosinophils 2.7 % (0-6); % Immature Granulocytes 0.3 % (0-0.5); % Lymphocytes 42.1 % (20.5-51.1); % Monocytes 7.1 % (1.7-9.3); % Neutrophils 47.3 % (42.2-75.2); Absolute Basophils 0.1 10^3/uL (0-0.2); Absolute Eosinophils 0.3 10^3/uL (0-0.7); Absolute Lymphocytes 4.7 10^3/uL (1.2-3.4); Absolute Monocytes 0.8 10^3/uL (0.1-0.6); Absolute Neutrophils 5.3 10^3/uL (1.4-6.5); Hematocrit 36.8 % (37.0-47.0); Hemoglobin 11.9 g/dL (12.0-16.0); Mean Corp Hgb Conc. 32.3 g/dL (33.0-37.0); Mean Corpuscular Hgb 26.3 pg (27.0-31.0); Mean Corpuscular Volume 81.2 fL (81.0-99.0); Mean Platelet Volume 8.7 fL (7.4-10.4); Nucleated Red Blood Cells % 0 %; Platelet Count 279 10^3/uL (130-400); Red Blood Cell Count 4.53 10^6/uL (4.20-5.40); Red Cell Dist. Width 13.7 % (11.5-14.5); White Blood Cell Count 11.2 10^3/uL (4.8-10.8)
[2025-03-08 06:05] LABS: Blood Urea Nitrogen 18 mg/dl (7-17); Calcium 9.6 mg/dl (8.4-10.2); Carbon Dioxide 25 mmol/L (22-30); Chloride 107 mmol/L (98-107); Estimated Creatinine Clearance 84 ml/min; Glucose 91 mg/dl (70-99); Potassium 4.2 mmol/L (3.5-5.1); Sodium 138 mmol/L (135-145); Uric Acid 4.4 mg/dl (2.5-6.2); eGFR > 60.00
[2025-03-08] MEDS: SYNTHROID 50 MCG PO (06:37)
--- NOTE | 2025-03-08 07:17 | W.PN.HOSP.TC ---
Today's Communication/Plan
-
Antibiotics. Podiatry consult
Assessment / Plan
Assessment / Plan
Physical Exam
General: Other (49y F in no acute distress.)
HEENT: Moist mucous membranes, PERRLA and Other (Thick neck.)
Respiratory: Other (Decreased BS at bases - otherwise clear.)
Cardiac: S1/S2 and Regular Rhythm; No Murmur
GI: Soft, Non Tender, Non Distended and Normal Bowel Sounds
Musculoskeletal: Other (Multiple prior amputations of L toes. 4th toe with ulceration over the distal phalanx. No significant erythema, induration, bleeding or discharge. No lymphanigitis)
Neuro: AO x 3
A/P:
Left 4th Toe Wound-->Chronic wound/chronic osteomyelitis of the left fourth digit:
ID consult appreciated
Started on Augmentin on 03/07
Podiatry eval pending--> reached out to podiatry and they will evaluate her later today
JAMESON:
Resolved
Given IV fluids upon admission
Off IV fluids now
Creatinine 0.9 today
DM-II with Neuropathy:
Stable. Follow glucose and cover with SSI as needed.
Update A1C--> 5.3
Asthma without Acute Exacerbation:
Stable.
Continue inhaled medications.
Bipolar Disorder:
Continue current med regimen without changes.
Chronic Pain Syndrome:
Stable.
Continue usual medications without changes.
Hypothyroidism
Stable.
Continue T4 supplementation.
Obesity due to excess calories
Affects all aspects of care.
Encourage healthy diet and activity as able with goal of weight loss.
DVT Prophylaxis:
Lovenox SQ
Code Status:
Full code
Anticipated Discharge: 24 - 48 hours
Subjective/Interval History
-
Date of Service: March 08, 2025
Complains of discomfort in the foot area. Afebrile
Objective Data
-
Labs:
Laboratory Results
03/08/25
05:15
WBC 11.2 H
Hgb 11.9 L
Hct 36.8 L
Plt Count 279
Sodium 138
Potassium 4.2
Chloride 107
Carbon Dioxide 25
BUN 18 H
Creatinine 0.9
Glucose 91
Calcium 9.6
Vital Signs:
Vital Signs
Temp Pulse Resp BP Pulse Ox
98.1 F 70 18 112/73 99
03/07/25 23:10 03/07/25 23:10 03/07/25 23:10 03/07/25 23:10 03/07/25 23:10
I&O
03/07/25 03/08/25 03/09/25
06:59 06:59 06:59
Intake Total 1480 / 1480 960 / 960
Balance 1480 / 1480 960 / 960
[2025-03-08] MEDS: SYMBICORT 80/4.5 MCG INHALER INH ×2 (07:29→20:32)
[2025-03-08 07:41] VITALS: BP 116/63
[2025-03-08 07:57] LABS: Glucose - Point of Care 93 mg/dl (70-99)
[2025-03-08] MEDS: LEXAPRO 10 MG PO (08:31)
[2025-03-08] MEDS: SUBUTEX 8 MG SL ×2 (08:31→20:19)
[2025-03-08] MEDS: PROTONIX 40 MG PO ×2 (08:31→20:19)
[2025-03-08] MEDS: LAMICTAL 50 MG PO ×2 (08:31→20:19)
[2025-03-08] MEDS: LAMICTAL 200 MG PO ×2 (08:31→21:58)
[2025-03-08] MEDS: FOLVITE 1 MG PO (08:31)
[2025-03-08] MEDS: CATAPRES 0.2 MG PO ×2 (08:31→20:18)
[2025-03-08] MEDS: AUGMENTIN 875 MG/125 MG 1 TABLET PO ×2 (08:31→20:18)
[2025-03-08] MEDS: VITAMIN D3 (cholecalciferol) 25 MCG PO (08:32)
[2025-03-08] MEDS: DESENEX/MITRAZOL/ZEASORB 1 APPLIC TOPICAL ×2 (08:32→20:18)
[2025-03-08] MEDS: TYLENOL 650 MG PO ×3 (08:49→17:32)
[2025-03-08] MEDS: LATUDA 60 MG PO (09:37)
--- NOTE | 2025-03-08 09:56 | W.PN.ID1 ---
Date of Service
Date of Service: March 08, 2025
Today's Communication
- passed challenge with augmentin; she is not allergic to penicillins, removed allergy from chart and discussed with patient. Added instructions to remove allergy from her outpatient chart to her dc summary.
- favor amputation of the affected digit, though an alternative could be a course of IV or high bioavailability oral therapy; will follow up podiatry input
- follow clinically
Assessment / Plan
Chronic osteomyelitis of the L 4th digit
Chronic wound L 4th digit
Obese on ozempic with 50 K weight loss in the last year
<del>Reported</del> <del>allergy</del> <del>to</del> <del>penicillin</del> <del>-</del> <del>'coughing</del> <del>up</del> <del>blood'</del>
VIR to vancomycin
- superficial wound cultures most often do no correlate with underlying pathogen causing osteomyelitis, s aureus is a possible exception
- not colonized with MRSA - does not require isolation
- has healed previous toe amputation sites
- VIR is not a contraindication to future use of vancomycin; she is less likely to have this reaction given her substantial weight loss.
- passed challenge with augmentin; she is not allergic to penicillins, removed allergy from chart and discussed with patient. Added instructions to remove allergy from her outpatient chart to her dc summary. These actions today are part of
antibiotic stewardship and helps prevent development of resistance.
- favor amputation of the affected digit, though an alternative could be a course of IV or high bioavailability oral therapy; will follow up podiatry input
- follow clinically
Chief Complaint
-: Other (osteomyelitis)
Subjective / Review of Systems
afebrile
bp stable
foot wound remains benign
'just cut it off I dont want to have to come back a third time for this toe'
Vital Signs / Physical Exam
Vital Signs
Vital Signs
Temp Pulse Resp BP Pulse Ox
97.8 F 66 17 116/63 96
03/08/25 07:41 03/08/25 08:31 03/08/25 07:41 03/08/25 08:31 03/08/25 07:41
Physical Exam
Constitutional: No Acute Distress
Cardiovascular: Regular Rate and S1/S2; Negative Murmur or Rub
Pulmonary: Clear and Symmetric; Negative Wheezes or Rales
Gastrointestinal: Soft, Non Tender, Non Distended and Normal Bowel Sounds
Extremities: Other (left 4th toe no erythema, warmth, swelling, tenderness or drainage; no obvious probe to bone; small wound with eschar noted)
Skin: Warm and Dry; Negative Rash or Jaundice
Objective Data
Lab Data
Lab Results
03/08/25 05:15
03/08/25 05:15
ESR 9 mm/hour (0-20) 03/07/25 05:25
ESR Cancelled 03/07/25 05:25
Estimated Creat Clear 84 ml/min 03/08/25 05:15
Lactic Acid 2.0 mmol/L (0.7-2.0) 03/07/25 05:25
Total Bilirubin 0.6 mg/dl (0.2-1.3) 03/06/25 21:25
AST 19 U/L (14-36) 03/06/25 21:25
ALT 15 U/L (0-35) 03/06/25 21:25
Alkaline Phosphatase 80 U/L (38-126) 03/06/25 21:25
Most recent labs reviewed.
Micro Results:
03/07/25 04:45 MRSA Screen - Final
Nose No Methicillin Resistant Staphylococcus aureus isolated.
03/06/25 23:48 Wound Culture - Pending
Toe Gram Stain - Preliminary
[2025-03-08 12:12] LABS: Glucose - Point of Care 113 mg/dl (70-99)
[2025-03-08] MEDS: ZOFRAN 4 MG IV (13:31)
[2025-03-08 15:34] VITALS: BP 104/64
--- NOTE | 2025-03-08 16:06 | CON.MD ---
Consultation - Medical
-
49 year old female admitted by EMS from nursing facility with painful, infected left 4th toe. She noticed pain and swelling in the area several days ago and felt like'infection was running through her body'. States she had been prescribed
doxycycline for the infection. Patient was hospitalized in October for a wound on the same toe which healed, then returned. She ambulates with a prosthesis right and diabetic shoe left.
PMH includes DM with peripheral neuropathy, bipolar disorder, chronic microcytic anemia, hypothyroidism, chronic pain disorder. PSxH includes gastric bypass, right BKA, amputation of left first ray and 3rd ray. she is currently afebrile with WBC
11.2 and no shift.
On examination, pedal pulses are not palpable due to edema but foot is warm to touch with normal capillary return. distal 4th toe rigidly contracted at the dipj and pipj with wound at plantar fat pad 0.5 cm with granular base. Wound probes to deep
tissue but no drainage noted. Toe is mildly edematous and erythema localized to the 4th toe. Radiographs show cortical disruption at the 4th distal phalanx consistent with osteomyelitis.
Impression/Plan
-Ulcer left 4th toe
Recurrent and failed oral antibiotic therapy
Radiographic evidence of osteomyelitis at the distal phalanx
Plan for amputation of the toe tomorrow afternoon. With radiographic changes, unlikely to respond to antibiotic therapy
-Diabetes with peripheral neuropathy
-S/p right BKA and left 1,3 ray amputations
-Chronic microcytic anemia
-Bipolar disorder
-Hypothyroidism
-Chronic pain disorder
-Obesity
Status post gastric bypass sleeve
--- NOTE | 2025-03-08 16:38 | W.PN.UPDATE ---
Update Note
Progress Note Update
Patient NPO after midnight tonight for surgery tomorrow after noon. Last Ozempic dose according to the patient was WednesdayFebruary 27
[2025-03-08 17:09] LABS: Glucose - Point of Care 109 mg/dl (70-99)
[2025-03-08] MEDS: LOVENOX 40 MG SC (17:27)
--- NOTE | 2025-03-08 17:51 | CM ---
Alert awake oriented patient who is half-way at [facility] with bed hold. She has been there 2 years and she said she will return to or.
She is assisted in all ADLs. She hasan amputation right leg with prosthesis and left 3 toes removed.She walks behind a wheelchair for support with prothesis. Pt said she will notify her family of admission.
[facility]
Pharmacy Concept
PCP Dr Sarkar
PLAN Return to half-way at [facility]
[2025-03-08] MEDS: PHENERGAN 50.5 MG IV (17:57)
[2025-03-08 20:53] LABS: Glucose - Point of Care 112 mg/dl (70-99)
[2025-03-08] MEDS: ZYRTEC 10 MG PO (21:57)
[2025-03-08] MEDS: ATARAX 100 MG PO (21:57)
[2025-03-08] MEDS: LATUDA 40 MG PO (21:57)
[2025-03-08 23:27] VITALS: BP 107/62
[2025-03-09] VITALS (9 sets, daily range): BP systolic 97–154; BP diastolic 54–95; BMI 33.1
[2025-03-09] MEDS: TYLENOL 650 MG PO ×4 (05:47→22:26)
[2025-03-09] MEDS: SYNTHROID 50 MCG PO (05:47)
[2025-03-09 05:50] LABS: Glucose - Point of Care 102 mg/dl (70-99)
[2025-03-09] MEDS: SYMBICORT 80/4.5 MCG INHALER INH ×2 (08:00→19:27)
[2025-03-09] MEDS: VITAMIN D3 (cholecalciferol) 25 MCG PO (08:20)
[2025-03-09] MEDS: LATUDA 60 MG PO (08:20)
[2025-03-09] MEDS: LEXAPRO 10 MG PO (08:20)
[2025-03-09] MEDS: LAMICTAL 50 MG PO ×2 (08:20→19:57)
[2025-03-09] MEDS: SUBUTEX 8 MG SL ×2 (08:20→19:54)
[2025-03-09] MEDS: PROTONIX 40 MG PO ×2 (08:20→19:53)
[2025-03-09] MEDS: LAMICTAL 200 MG PO ×2 (08:20→19:56)
[2025-03-09] MEDS: FOLVITE 1 MG PO (08:20)
[2025-03-09] MEDS: DESENEX/MITRAZOL/ZEASORB 1 APPLIC TOPICAL ×2 (08:20→19:57)
[2025-03-09] MEDS: AUGMENTIN 875 MG/125 MG 1 TABLET PO ×2 (08:20→19:53)
[2025-03-09] MEDS: CATAPRES PO (08:26)
--- NOTE | 2025-03-09 10:04 | W.PN.HOSP.TC ---
Today's Communication/Plan
-
Podiatry surgery today.
Assessment / Plan
Assessment / Plan
Physical Exam
General: Other (49y F in no acute distress.)
HEENT: Moist mucous membranes, PERRLA and Other (Thick neck.)
Respiratory: Other (Decreased BS at bases - otherwise clear.)
Cardiac: S1/S2 and Regular Rhythm; No Murmur
GI: Soft, Non Tender, Non Distended and Normal Bowel Sounds
Musculoskeletal: Other (Multiple prior amputations of L toes. 4th toe with ulceration over the distal phalanx. No significant erythema, induration, bleeding or discharge. No lymphanigitis)
Neuro: AO x 3
A/P:
Left 4th Toe Wound-->Chronic wound/chronic osteomyelitis of the left fourth digit:
ID consult appreciated
Started on Augmentin on 03/07 and plan to continue until 24-48 hours postop
Podiatry consult appreciated
Plan for toe amputation today
JAMESON:
Resolved
Given IV fluids upon admission
Off IV fluids now
Creatinine 0.9 today
DM-II with Neuropathy:
Stable. Follow glucose and cover with SSI as needed.
Update A1C--> 5.3
Asthma without Acute Exacerbation:
Stable.
Continue inhaled medications.
Bipolar Disorder:
Continue current med regimen without changes.
Chronic Pain Syndrome:
Stable.
Continue usual medications without changes.
Hypothyroidism
Stable.
Continue T4 supplementation.
Obesity due to excess calories
Affects all aspects of care.
Encourage healthy diet and activity as able with goal of weight loss.
DVT Prophylaxis:
Lovenox SQ
Code Status:
Full code
Anticipated Discharge: 24 - 48 hours
Subjective/Interval History
-
Date of Service: March 09, 2025
Patient still have some toe discomfort. Afebrile. No chest pain or shortness of breath
Objective Data
-
Vital Signs:
Vital Signs
Temp Pulse Resp BP Pulse Ox
98.0 F 58 17 97/54 98
03/09/25 07:25 03/09/25 08:26 03/09/25 07:25 03/09/25 08:26 03/09/25 07:25
I&O
03/08/25 03/09/25 03/10/25
06:59 06:59 06:59
Intake Total 960 / 960 240 / 240
Balance 960 / 960 240 / 240
[2025-03-09] MEDS: ATARAX 50 MG PO (10:49)
[2025-03-09] MEDS: NSS 1000 IV ×2 (11:03→23:15)
--- NOTE | 2025-03-09 11:49 | W.PN.ID1 ---
Date of Service
Date of Service: March 09, 2025
Today's Communication
- c/w augmentin
- for amputation of the affected digit with expected surgical cure, augmentin could be stopped 24 hours post operatively
- follow up with podiatry; ID service will no longer actively follow this patient, please recall for further questions
Assessment / Plan
Chronic osteomyelitis of the L 4th digit
Chronic wound L 4th digit
Obese on ozempic with 50 K weight loss in the last year
VIR to vancomycin
- superficial wound cultures most often do no correlate with underlying pathogen causing osteomyelitis, s aureus is a possible exception
- not colonized with MRSA - does not require isolation
- has healed previous toe amputation sites
- VIR is not a contraindication to future use of vancomycin; she is less likely to have this reaction given her substantial weight loss.
- c/w augmentin
- for amputation of the affected digit with expected surgical cure, augmentin could be stopped 24 hours post operatively
- follow up with podiatry; ID service will no longer actively follow this patient, please recall for further questions
Chief Complaint
-: Other (osteomyelitis)
Subjective / Review of Systems
afebrile
bp overall stable
anxious about surgery
Vital Signs / Physical Exam
Vital Signs
Vital Signs
Temp Pulse Resp BP Pulse Ox
98.0 F 58 17 97/54 98
03/09/25 07:25 03/09/25 08:26 03/09/25 07:25 03/09/25 08:26 03/09/25 07:25
Physical Exam
Constitutional: No Acute Distress and Chronically Ill
Cardiovascular: Regular Rate and S1/S2; Negative Murmur or Rub
Pulmonary: Clear and Symmetric; Negative Wheezes or Rales
Gastrointestinal: Soft, Non Tender, Non Distended and Normal Bowel Sounds
Skin: Warm and Dry; Negative Rash or Jaundice
Objective Data
Lab Data
Lab Results
03/08/25 05:15
03/08/25 05:15
ESR 9 mm/hour (0-20) 03/07/25 05:25
ESR Cancelled 03/07/25 05:25
Estimated Creat Clear 84 ml/min 03/08/25 05:15
Lactic Acid 2.0 mmol/L (0.7-2.0) 03/07/25 05:25
Total Bilirubin 0.6 mg/dl (0.2-1.3) 03/06/25 21:25
AST 19 U/L (14-36) 03/06/25 21:25
ALT 15 U/L (0-35) 03/06/25 21:25
Alkaline Phosphatase 80 U/L (38-126) 03/06/25 21:25
Most recent labs reviewed.
Micro Results:
03/06/25 23:48 Wound Culture - Preliminary
Toe Gram Stain - Preliminary
03/07/25 04:45 MRSA Screen - Final
Nose No Methicillin Resistant Staphylococcus aureus isolated.
[2025-03-09 12:37] LABS: Glucose - Point of Care 99 mg/dl (70-99)
[2025-03-09] MEDS: ZOFRAN 4 MG IV ×3 (13:21→22:43)
--- NOTE | 2025-03-09 16:21 | W.PN.UPDATE ---
Update Note
Progress Note Update
Patient to OR today for left 4th toe amputation due to osteomyelitis. Tolerated procedure and anesthesia without complications. Wound primarily closed. Resume Plavix and remain NWB until tomorrow. Surgical cure achieved and no intra operative
cultures performed.
[2025-03-09 16:31] LABS: Glucose - Point of Care 109 mg/dl (70-99)
[2025-03-09] MEDS: LOVENOX 40 MG SC (17:14)
[2025-03-09 17:41] LABS: Glucose - Point of Care 96 mg/dl (70-99)
[2025-03-09 20:40] LABS: Glucose - Point of Care 119 mg/dl (70-99)
[2025-03-09] MEDS: MELATONIN 10 MG PO (21:25)
[2025-03-09] MEDS: ATARAX 100 MG PO (21:25)
[2025-03-09] MEDS: ZYRTEC 10 MG PO (21:25)
[2025-03-09] MEDS: CATAPRES 0.2 MG PO (21:25)
[2025-03-09] MEDS: LATUDA 40 MG PO (21:25)
[2025-03-10 03:13] VITALS: BP 141/87
[2025-03-10] MEDS: TYLENOL 650 MG PO ×3 (03:15→18:04)
[2025-03-10 06:00] VITALS: BMI 33.3
[2025-03-10] MEDS: SYNTHROID 50 MCG PO (06:20)
[2025-03-10 07:07] VITALS: BP 152/98
[2025-03-10 07:16] LABS: Mean Corp Hgb Conc. 31.6 g/dL (33.0-37.0); Mean Corpuscular Hgb 25.9 pg (27.0-31.0); Mean Corpuscular Volume 81.9 fL (81.0-99.0); Platelet Count 276 10^3/uL (130-400); Red Blood Cell Count 4.64 10^6/uL (4.20-5.40); Red Cell Dist. Width 13.8 % (11.5-14.5); White Blood Cell Count 9.9 10^3/uL (4.8-10.8)
[2025-03-10 07:17] LABS: Glucose - Point of Care 125 mg/dl (70-99)
[2025-03-10 07:36] LABS: Blood Urea Nitrogen 8 mg/dl (7-17); Calcium 9.4 mg/dl (8.4-10.2); Carbon Dioxide 27 mmol/L (22-30); Chloride 107 mmol/L (98-107); Estimated Creatinine Clearance 108 ml/min; Glucose 105 mg/dl (70-99); Potassium 5.1 mmol/L (3.5-5.1); Sodium 138 mmol/L (135-145); eGFR > 60.00
[2025-03-10] MEDS: SYMBICORT 80/4.5 MCG INHALER INH ×2 (07:58→18:03)
[2025-03-10] MEDS: LAMICTAL 50 MG PO ×2 (08:00→20:56)
[2025-03-10] MEDS: AUGMENTIN 875 MG/125 MG 1 TABLET PO ×2 (08:00→20:55)
[2025-03-10] MEDS: LAMICTAL 200 MG PO ×2 (08:01→20:56)
[2025-03-10] MEDS: CATAPRES 0.2 MG PO ×2 (08:01→20:55)
[2025-03-10] MEDS: VITAMIN D3 (cholecalciferol) 25 MCG PO (08:01)
[2025-03-10] MEDS: LATUDA 60 MG PO (08:01)
[2025-03-10] MEDS: PROTONIX 40 MG PO ×2 (08:01→20:56)
[2025-03-10] MEDS: SUBUTEX 8 MG SL ×2 (08:01→20:55)
[2025-03-10] MEDS: FOLVITE 1 MG PO (08:01)
[2025-03-10] MEDS: LEXAPRO 10 MG PO (08:02)
[2025-03-10] MEDS: DESENEX/MITRAZOL/ZEASORB 1 APPLIC TOPICAL (08:08)
[2025-03-10] MEDS: ZOFRAN 4 MG IV ×2 (08:50→14:17)
--- NOTE | 2025-03-10 09:14 | W.PN.HOSP.TC ---
Today's Communication/Plan
-
Discharge planning today
Assessment / Plan
Assessment / Plan
Physical Exam
General: Other (49y F in no acute distress.)
HEENT: Moist mucous membranes, PERRLA and Other (Thick neck.)
Respiratory: Other (Decreased BS at bases - otherwise clear.)
Cardiac: S1/S2 and Regular Rhythm; No Murmur
GI: Soft, Non Tender, Non Distended and Normal Bowel Sounds
Musculoskeletal: Other (postop amputation left foot toe)
Neuro: AO x 3
A/P:
Left 4th Toe Wound-->Chronic wound/chronic osteomyelitis of the left fourth digit:
ID consult appreciated
Started on Augmentin on 03/07 and plan to continue until today.
Podiatry consult appreciated
Status post amputation yesterday
JAMESON:
Resolved
Given IV fluids upon admission
Off IV fluids now
Creatinine 0.7 today
Can resume rest of medications today upon discharge
DM-II with Neuropathy:
Stable. Follow glucose and cover with SSI as needed.
Update A1C--> 5.3
Asthma without Acute Exacerbation:
Stable.
Continue inhaled medications.
Bipolar Disorder:
Continue current med regimen without changes.
Chronic Pain Syndrome:
Stable.
Continue usual medications without changes.
Hypothyroidism
Stable.
Continue T4 supplementation.
Obesity due to excess calories
Affects all aspects of care.
Encourage healthy diet and activity as able with goal of weight loss.
DVT Prophylaxis:
Lovenox SQ
Code Status:
Full code
Anticipated Discharge: Today
Subjective/Interval History
-
Date of Service: March 10, 2025
Patient doing well overall. Afebrile
Objective Data
-
Labs:
Laboratory Results
03/10/25
06:51
WBC 9.9
Hgb 12.0
Hct 38.0
Plt Count 276
Sodium 138
Potassium 5.1
Chloride 107
Carbon Dioxide 27
BUN 8
Creatinine 0.7
Glucose 105 H
Calcium 9.4
Vital Signs:
Vital Signs
Temp Pulse Resp BP Pulse Ox
97.6 F 91 17 152/98 99
03/10/25 07:07 03/10/25 08:01 03/10/25 07:07 03/10/25 08:01 03/10/25 07:07
I&O
03/09/25 03/10/25 03/11/25
06:59 06:59 06:59
Intake Total 240 / 240 80 / 80
Balance 240 / 240 80 / 80
[2025-03-10 10:51] VITALS: BP 115/78
[2025-03-10 11:47] LABS: Glucose - Point of Care 105 mg/dl (70-99)
[2025-03-10] MEDS: NSS 1000 IV (12:48)
--- NOTE | 2025-03-10 13:05 | W.PN.POD ---
Today's Communication
Today's Communication
PT to help resume ambulation
OK for discharge from surgical standpoint
Assessment / Plan
-
Chronic left 4th toe ulcer with osteomyelitis
-One day status post left 4th digit amputation
-Surgical resolution achieved. Discharge with 10 days oral augmentin
-PT for weight bearing with current diabetic shoe, prosthesis and walker
-OK to discharge from surgical perspective with daily dry dressing changes and follow up in my office for suture removal in 2 weeks
Diabetes mellitus
Obesity
-once weekly Ozempic
Subjective
Chief Complaint
Patient admitted with infected ulcer left 4th toe
Subjective
Resting comfortably in bed with no complaints
Objective
Temp Pulse Resp BP Pulse Ox
98.0 F 89 16 115/78 98
03/10/25 10:51 03/10/25 10:51 03/10/25 10:51 03/10/25 10:51 03/10/25 10:51
03/10/25 06:51
03/10/25 06:51
Vital Signs and Lab results were reviewed.
Physical Exam
Physical Exam
Dressing clean, dry and in tact. Incision stable with no drainage and sutures in tact. No surrounding edema or erythema
[2025-03-10 15:28] VITALS: BP 137/77
--- NOTE | 2025-03-10 15:58 | CM ---
Pt cleared for return to [facility]. CM spoke with Jill [facility] travel administrator who agreed with pt's return.
Plan: Ambulance transport requested for pt's return to [facility].
[facility] Report: [phone] ask for 2nd floor nursing unit.
[facility]
[2025-03-10 17:57] LABS: Glucose - Point of Care 129 mg/dl (70-99)
[2025-03-10] MEDS: ATARAX 50 MG PO (18:09)
[2025-03-10] MEDS: LOVENOX SC (18:12)
[2025-03-10 19:00] VITALS: BP 119/73
[2025-03-10] MEDS: ATARAX 100 MG PO (21:01)
[2025-03-10] MEDS: MELATONIN 10 MG PO (21:01)
[2025-03-10] MEDS: ZYRTEC 10 MG PO (21:01)
[2025-03-10] MEDS: DESENEX/MITRAZOL/ZEASORB TOPICAL (21:02)
[2025-03-10] MEDS: LATUDA 40 MG PO (21:02)
[2025-03-10 21:05] LABS: Glucose - Point of Care 112 mg/dl (70-99)
[2025-03-10 23:00] VITALS: BP 102/65
[2025-03-11 04:56] VITALS: BMI 33.3
[2025-03-11] MEDS: ZOFRAN 4 MG IV ×2 (05:21→11:21)
[2025-03-11] MEDS: TYLENOL 650 MG PO ×2 (05:21→11:18)
[2025-03-11] MEDS: ATARAX 50 MG PO (05:21)
[2025-03-11] MEDS: SYNTHROID 50 MCG PO (05:22)
[2025-03-11 07:13] VITALS: BP 113/70
[2025-03-11 07:48] LABS: Glucose - Point of Care 100 mg/dl (70-99)
[2025-03-11] MEDS: CATAPRES 0.2 MG PO (08:15)
[2025-03-11] MEDS: LAMICTAL 50 MG PO (08:15)
[2025-03-11] MEDS: SUBUTEX 8 MG SL (08:15)
[2025-03-11] MEDS: AUGMENTIN 875 MG/125 MG 1 TABLET PO (08:15)
[2025-03-11] MEDS: LATUDA 60 MG PO (08:16)
[2025-03-11] MEDS: LEXAPRO 10 MG PO (08:16)
[2025-03-11] MEDS: VITAMIN D3 (cholecalciferol) 25 MCG PO (08:16)
[2025-03-11] MEDS: LAMICTAL 200 MG PO (08:16)
[2025-03-11] MEDS: PROTONIX 40 MG PO (08:16)
[2025-03-11] MEDS: FOLVITE 1 MG PO (08:16)
[2025-03-11] MEDS: DESENEX/MITRAZOL/ZEASORB 1 APPLIC TOPICAL (08:20)
[2025-03-11] MEDS: SYMBICORT 80/4.5 MCG INHALER INH (08:23)
--- NOTE | 2025-03-11 09:13 | W.PN.HOSP.TC ---
Today's Communication/Plan
-
Discharge planning today
Assessment / Plan
Assessment / Plan
Physical Exam
General: Other (49y F in no acute distress.)
HEENT: Moist mucous membranes, PERRLA and Other (Thick neck.)
Respiratory: Other (Decreased BS at bases - otherwise clear.)
Cardiac: S1/S2 and Regular Rhythm; No Murmur
GI: Soft, Non Tender, Non Distended and Normal Bowel Sounds
Musculoskeletal: Other (postop amputation left foot toe)
Neuro: AO x 3
A/P:
Left 4th Toe Wound-->Chronic wound/chronic osteomyelitis of the left fourth digit:
ID consult appreciated
Started on Augmentin on 03/07 and we were planning to continue until yesterday but podiatry recommend 10 more days
Podiatry consult appreciated
Status post amputation on 03/09
We were planning to discharge yesterday on 03/10 but not sure why did not happen
Plan to discharge today
JAMESON:
Resolved
Given IV fluids upon admission
Off IV fluids now
Creatinine 0.7
Can resume rest of medications today upon discharge
DM-II with Neuropathy:
Stable. Follow glucose and cover with SSI as needed.
Update A1C--> 5.3
Asthma without Acute Exacerbation:
Stable.
Continue inhaled medications.
Bipolar Disorder:
Continue current med regimen without changes.
Chronic Pain Syndrome:
Stable.
Continue usual medications without changes.
Hypothyroidism
Stable.
Continue T4 supplementation.
Obesity due to excess calories
Affects all aspects of care.
Encourage healthy diet and activity as able with goal of weight loss.
DVT Prophylaxis:
Lovenox SQ
Code Status:
Full code
Anticipated Discharge: Today
Subjective/Interval History
-
Date of Service: March 11, 2025
No new complaints. Patient wants to go to her facility today
Objective Data
-
Vital Signs:
Vital Signs
Temp Pulse Resp BP Pulse Ox
98.3 F 71 17 113/70 96
03/11/25 07:13 03/11/25 07:13 03/11/25 07:13 03/11/25 07:13 03/11/25 08:00
I&O
03/10/25 03/11/25 03/12/25
06:59 06:59 06:59
Intake Total 80 / 80 120 / 120 240 / 240
Balance 80 / 80 120 / 120 240 / 240
--- NOTE | 2025-03-11 09:13 | W.DCSUMMARY ---
Discharge Summary
Discharge Data
Date of Admission: 03/09/25
Date of Discharge: 03/11/25
Total time spent discharging patient (in min): 35
-
Pending Results: No
Hospital Course
Patient 49 years old female with history of diabetes mellitus, right BKA, anemia, bipolar, hypothyroidism, chronic pain disorder, obesity, presented to the hospital with infected left fourth toe with osteomyelitis. ID and podiatry were consulted.
She was started on oral antibiotics and patient tolerated well by ID. Podiatry took her to the OR and did amputation of the left toe. Her wound was primarily closed and per podiatry she can resume antiplatelets and weightbearing status the
following day and since surgical cure was achieved no intraoperative cultures was performed. ID recommended 24 hours of antibiotics postop but podiatry would like to extend antibiotics to 10 more days. Patient otherwise has remained
hemodynamically stable and afebrile. She will be discharged back to her facility in stable condition today.
Discharge duration: 35-minutes
Discharge Plan
-
Patient Disposition: [facility]NF
Discharge Diagnosis/Procedures: chronic osteomyelitis status post left fourth toe amputation. Acute kidney injury. Diabetes mellitus. Chronic pain syndrome.
Condition: Good
Diet: Diabetic, Carb Controlled
Activity: As tolerated
Blood Work: Please PCP to order CBC, BMP within 1 week
Activity Restrictions/Additional Instructions:
Ms Barba passed a challenge with augmentin; she is not allergic to penicillins, the allergy should be removed from her outpatient chart as well.
Referrals:
Jarett Sarkar DO [Family Provider, Internal Medicine] - in less than 1 week
Irma Guzmán DPM [Specified Professional Personl, Podiatry] - in one to two weeks
Prescriptions:
New
amoxicillin-pot clavulanate 875-125 mg Tablet
1 tab PO Q12 10 Days Qty: 20 0RF
Continued
metformin 500 mg Tablet
500 mg PO BIDWMEAL
acetaminophen 325 mg Tablet
650 mg PO Q6HPRN PRN (Reason: mild pain/temp>100.4)
lamotrigine [Lamictal] 200 mg Tablet
250 mg PO BID
ondansetron HCl 4 mg Tablet
8 mg PO Q8HPRN PRN (Reason: nausea)
loperamide [Imodium A-D] 2 mg Tablet
2 mg PO [id number] PRN (Reason: diarrhea)
clonidine HCl 0.2 mg Tablet
0.2 mg PO Q12H
methocarbamol 750 mg Tablet
750 mg PO Q6HPRN PRN (Reason: muscle spasms)
magnesium hydroxide [Milk of Magnesia] 400 mg/5 mL Suspension
30 ml PO DAILYPRN PRN (Reason: if no bm in 3 days)
levothyroxine 50 mcg Tablet
50 mcg PO DAILY
pantoprazole 40 mg Tablet,Delayed Release (Dr/Ec)
40 mg PO BID
Fleet Enema 19-7 gram/118 mL Enema
118 ml CA DAILYPRN PRN (Reason: if suppository is ineffective)
folic acid 1 mg Tablet
1 mg PO DAILY
furosemide 20 mg Tablet
20 mg PO BID
eucalyptus-menthol Lozenge
3.1 mg MUCOUS MEMBRANE Q1HPRN PRN (Reason: cough)
sodium chloride 0.65 % Aerosol,Buchanan
1 spray INTRANASAL [id number] PRN (Reason: dry nasal)
fenofibrate 54 mg Tablet
54 mg PO DAILY
melatonin 10 mg Tablet
20 mg PO HS
Ozempic 0.25 mg or 0.5 mg (2 mg/3 mL) Pen Injector
1 mg SC TU
hydroxyzine HCl 50 mg Tablet
100 mg PO HS
hydroxyzine HCl 50 mg Tablet
50 mg PO Q6HPRN PRN (Reason: anxiety)
losartan 25 mg Tablet
25 mg PO DAILY
escitalopram oxalate [Lexapro] 10 mg Tablet
10 mg PO DAILY
cetirizine [Zyrtec] 10 mg Tablet
10 mg PO HS
capsaicin 0.075 % Cream
1 applic TOPICAL Q8HPRN PRN (Reason: 8g to affected area)
acetaminophen [Tylenol Extra Strength] 500 mg Tablet
1,000 mg PO TIDPRN
bisacodyl [Dulcolax (bisacodyl)] 10 mg Suppository
10 mg CA DAILYPRN PRN (Reason: if no bm after mom)
diphenhydramine HCl [Benadryl] 25 mg Capsule
25 mg PO [id number] PRN (Reason: itching)
nystatin 100,000 unit/gram Powder
1 applic TOPICAL BID
Biofreeze (menthol) 5 % Adhesive Patch,Medicated
1 patch TOPICAL DAILYPRN PRN (Reason: right shoulder)
cholecalciferol (vitamin D3) [Vitamin D3] 25 mcg (1,000 unit) Tablet
25 mcg PO DAILY
budesonide-formoterol [Symbicort] 80-4.5 mcg/actuation Hfa Aerosol Inhaler
2 inh INHALATION R BID
buprenorphine-naloxone 8-2 mg Tablet, Sublingual
1 tab SUBLINGUAL BID
lurasidone [Latuda] 40 mg tablet
40 mg PO HS
Discontinued
doxycycline hyclate 100 mg Tablet
100 mg PO BID
Discharge Orders:
Discharge Patient (As Directed); Ordered 03/10/25
Ordered By: Jose Blake
Discharge Date and Time
Print Language: ICELANDIC
--- NOTE | 2025-03-11 10:10 | CM ---
Pt cleared for return to [facility]. CM spoke with Jill [facility] senior sales administrator who agreed with pt's return.
Plan: Ambulance transport requested for pt's return to [facility].
[facility] Report: [phone] ask for 2nd floor nursing unit.
[facility]
== END 2025-03-11 15:15 | DRG 504 ==
LOC: 3 WEST ACU 09:31
PROVIDERS: Student in an Organized Health Care Education/Training Program; ADMITTING PHYSICIAN Hospitalist; ATTENDING PHYSICIAN Hospitalist; CONSULT PHYSICIAN Podiatrist Foot & Ankle Surgery; EMERGENCY PHYSICIAN Student in an Organized Health Care Education/Training Program; FAMILY PHYSICIAN Internal Medicine; OTHER PHYSICIAN Student in an Organized Health Care Education/Training Program
PROC: 0Y6W0Z3 Detachment at Left 4th Toe, Low, Open Approach (ICD-10-PCS; 2025-03-09)
DX: M86.672 Other chronic osteomyelitis, left ankle and foot (principal); E66.2 Morbid (severe) obesity with alveolar hypoventilation; N17.9 Acute kidney failure, unspecified; E87.20 Acidosis, unspecified; G89.4 Chronic pain syndrome; Z79.890 Hormone replacement therapy; Z79.84 Long term (current) use of oral hypoglycemic drugs; E11.42 Type 2 diabetes mellitus with diabetic polyneuropathy; F41.9 Anxiety disorder, unspecified; Z79.51 Long term (current) use of inhaled steroids; F31.9 Bipolar disorder, unspecified; F17.200 Nicotine dependence, unspecified, uncomplicated; Z98.84 Bariatric surgery status; Z88.5 Allergy status to narcotic agent; Z88.6 Allergy status to analgesic agent; Z91.040 Latex allergy status; J45.909 Unspecified asthma, uncomplicated; E03.9 Hypothyroidism, unspecified; Z68.33 Body mass index [BMI] 33.0-33.9, adult; D50.9 Iron deficiency anemia, unspecified; E78.00 Pure hypercholesterolemia, unspecified; I10 Essential (primary) hypertension; K21.9 Gastro-esophageal reflux disease without esophagitis; E11.69 Type 2 diabetes mellitus with other specified complication
CPT/HCPCS: 88305; 88311; 73620; 73660; 80048; 80053; 82962; 83036; 83605; 84550; 85025; 85027; 85652; 87070; 87077; 87186; 87205; 93005; 94640; 96374; 96375; 99284; 99406; J0878; J2185

== ENCOUNTER 2025-07-26 23:12 | Inpatient (IN) | payer OTHER, SELFPAY ==
[2025-07-26] VITALS (7 sets, daily range): BP systolic 93–113; BP diastolic 57–83; BMI 31.2
[2025-07-26 20:02] LABS: Hematocrit 34.7 % (37.0-47.0); Hemoglobin 10.9 g/dL (12.0-16.0); Mean Corp Hgb Conc. 31.4 g/dL (33.0-37.0); Mean Corpuscular Volume 87.2 fL (81.0-99.0); Nucleated Red Blood Cells % 0 %; Platelet Count 391 10^3/uL (130-400); Red Cell Dist. Width 13.5 % (11.5-14.5)
[2025-07-26 20:14] LABS: HCG, Serum Qualitative Screen Negative
[2025-07-26 20:19] LABS: ALT (SGPT) 11 U/L (0-35); AST (SGOT) 15 U/L (14-36); Albumin 4.1 g/dl (3.5-5.0); Alkaline Phosphatase 128 U/L (38-126); Blood Urea Nitrogen 16 mg/dl (7-17); Calcium 9.7 mg/dl (8.4-10.2); Carbon Dioxide 28 mmol/L (22-30); Chloride 101 mmol/L (98-107); Glucose 98 mg/dl (70-99); Potassium 4.3 mmol/L (3.5-5.1); Sodium 136 mmol/L (135-145); Total Protein 7.4 g/dl (6.3-8.2); eGFR 55.49
--- NOTE | 2025-07-26 20:33 | ED.GENMED ---
History of Present Illness
<CORIN Hanson - Last Filed: 07/26/25 23:07>
General
Chief Complaint: Skin Problem
Source: patient
Exam Limitations: none
Time Seen by Provider: 07/26/25 19:55
Nursing documentation reviewed up to this point in time: agreed with
History of Present Illness
History of Present Illness:
Patient is a 49-year-old female past medical history of diabetes, right BKA, anemia ,bipolar disorder, hypothyroidism chronic pain, obesity, presenting to the ER for evaluation. Pt resides in assisted facility. patient has a history of
osteomyelitis and status post multiple toe amputations on left. She reports that she has had a wound to the plantar aspect of her foot for the past 1 month however since last night she has noticed increased redness and swelling along with
increased pain. She does have chronic pain and is on chronic Suboxone she denies any fevers.
Past History
<CORIN Hanson - Last Filed: 07/26/25 23:07>
Past History
ED Past Medical History: Asthma, GERD, HTN, Hypercholesterolemia, NIDDM, Hypothyroidism and Psychiatric (Anxiety, bipolar disorder)
ED Past Surgical History: Cholecystectomy, Gynecological (Tubel), Orthopedic (RBKA) and Other (Umbilical hernia repair, Gastric bypass sleeve)
Social History
Tobacco: Smoker
Alcohol: None
Drug: Other
Personal:
Living: assisted
Employment: Other
Family History
Family History: Other
Phy Exam
<CORIN Hanson - Last Filed: 07/26/25 23:07>
General Physical Exam
General Presentation: no apparent distress
General age: appears older than age
General Skin: warm and dry
General Habitus: normal
General Mental: alert
General Hydration: appears well hydrated
Cardiovascular Exam
Cardiovascular Exam: regular rate/rhythm, no murmur and normal peripheral pulses
Pulmonary Exam
Pulmonary Exam: lungs clear and no respiratory distress
Neurological Exam
Neurological Exam: alert and oriented x3
Musculoskeletal Exam
Musculoskeletal Exam: other (RBKA, left foot with obvious swelling erythema multiple toe amputations , + plantar foot + pulses )
Skin Exam
Skin Exam: normal color and warm/dry
Psychiatric Exam
Psychiatric Exam: normal mood/affect
Sepsis
<CORIN Hanson - Last Filed: 07/26/25 23:07>
Sepsis Screening
Sepsis Assessment: Sepsis Ruled Out
Sepsis Screen
Sepsis Screen: Sepsis Ruled Out
Date: 07/26/25
Time: 23:06
<David Figueroa MD - Last Filed: 07/30/25 12:59>
Sepsis Screen
Sepsis Screen: Sepsis Ruled Out
Date: 07/30/25
Time: 12:59
Course
<CORIN Hanson - Last Filed: 07/26/25 23:07>
Orders/Labs/Results
Orders:
Orders
07/26/25 19:53
Test Result ONCE
07/26/25 19:55
Complete Blood Count/With Diff Urgent
Comprehensive Metabolic Panel Urgent
HCG, Serum Qualitative Screen Urgent
Lactic Acid Urgent
Blood Culture Urgent
SEVERINO Source: Blood/Venous
Specimen Description:
07/26/25 20:47
0.9% Sodium Chloride 1000 ml [Nss] 1,000 ml IV BOLUS
Foot, Left 3 View [CR Foot - Left Min 3 Views] Urgent
Comment:
Reason For Exam: trauma
07/26/25 21:13
Piperacillin/Tazo 3.375 Gram [Zosyn] 3.375 gram in 50 ml IV NOW
07/26/25 21:38
Morphine Sulfate 2 mg IV NOW STA
07/26/25 22:23
Vancomycin [Vancocin] 1,500 mg 0.9% Sodium Chloride 500 ml [Nss] 500 ml IV NOW
07/26/25 22:49
Admit/Transfer Patient As Directed
Co-Sign Provider:
Level of Care: Inpatient admission
Assign to:: Medical/Surgical
Physician / Group: Angel
Diagnosis: Diabetic foot infection
Reason for Hospitalization: diabetic foot infection with cellulitis
Expected length of stay greater than two midnights?: Yes
ELOS- Estimated Length of Stay in days: 2
I certify the patient meets the requirements for IP care: Yes
PRN Pain Medication Management As Directed
May give lesser potent ordered pain med per pt: Yes
preference::
Protocol:: Medication orders for pain may be administered in a
manner that supports deferring to patient preference
when the pt is:
- Requesting an ordered lesser potent pain medication.
Least to most potent pain medications are defined
as: acetaminophen < NSAID < tramadol < opioids
(morphine, oxycodone, hydromorphone).
- Requesting a lesser dose of the same medication IF
ORDERED.
- Requesting a less intrusive route of administration
if both routes are prescribed by the provider (PO <
IV).
07/26/25 22:56
Code Status As Directed
Resuscitation Status: Full Code
07/26/25 23:58
Acetaminophen [Tylenol] 650 mg PO Q4HPRN PRN
Bisacodyl [Dulcolax] 10 mg RECTAL [id number] PRN
Dextrose 50%-Water [Dextrose 50% Syringe] 12.5 grams IV [id number] PRN
Diphenhydramine [Benadryl] 25 mg PO [id number] PRN itching
Docusate W/Senna [Senokot-S] 1 tablet PO BIDPRN PRN
Glucagon [GlucaGen] 1 mg IM PRN PRN
Methocarbamol 750 mg PO Q6HPRN PRN muscle spasms
Morphine Sulfate 2 mg IV Q4HPRN PRN
Ondansetron Injectable [Zofran] 4 mg IV Q6HPRN PRN
Polyethylene Glycol Powder [Miralax] 17 grams PO DAILYPRN PRN
Sodium Chloride [[place], Saline Mist] 1 sprays NASAL [id number] PRN dry nasal
VANCOMYCIN Pharmacy to Dose [VANCOCIN Pharmacy to Dose] 1 each Pharmacy To Prepare [Call Pharmacy To Prepare] 0 ml IV PER PROTOCOL
07/26/25 23:58
Consult Notification Routine
Specialty to Notify: Infectious Disease
Date consulting provider notified: 07/27/25
Time consulting provider notified: 08:30
Notified:: Service
INFECTIOUS DISEASE CONSULT Routine
Consulting Provider: Tucker Pina
Was physician already notified: No
Reason for consult: diabetic foot infection
PODIATRY CONSULT Routine
Consulting Provider: Irma Guzmán
Was physician already notified: Yes
Reason for consult: diabetic foot infection
Activity As Directed
Activity Level: With Assistance
Bedside Glucose Monitoring As Directed
Frequency: AC&HS
Additional Instructions:: Change to q6h if pt on TPN, tube feeding or not eating
Vital Signs As Directed
Frequency: Per unit guidelines
Pulse Ox/spot Check [RESP] Routine
Quantity: 1
DX Deep Vein Thrombosis Video Routine
07/27/25 03:00
Piperacillin/Tazo 3.375 Gram [Zosyn] 3.375 gram in 50 ml IV Q6H
07/27/25 Breakfast
Regular
At Your Request: Full Participation
Does patient need a safe tray?: No
Levothyroxine [Synthroid] 50 mcg PO DAILY @ 0600
07/27/25 06:54
Basic Metabolic Panel IN AM
CRP [C-Reactive Protein] IN AM
Complete Blood Count/No Diff IN AM
ESR [Erythrocyte Sed Rate] IN AM
Glycohemoglobin (HgbA1c) IN AM
Magnesium IN AM
07/27/25 07:30
Insulin Aspart Corrective Low [Novolog Flexpen-Low Resistance] See Protocol SC AC
07/27/25 08:00
Budesonide/Formoterol 80/4.5 [Symbicort 80/4.5 Mcg Inhaler] 2 puff INH R BID
Buprenorphine [Subutex] 8 mg SL BID
Cholecalciferol (Vitamin D3) [VITAMIN D3 (cholecalciferol)] 25 mcg PO DAILY
Clonidine [Catapres] 0.2 mg PO Q12H
Escitalopram Oxalate [Lexapro] 10 mg PO DAILY
FOLic ACID [Folvite] 1 mg PO DAILY
Fenofibrate [Tricor] 48 mg PO DAILY
Lamotrigine [Lamictal] 250 mg PO BID
Losartan [Cozaar] 25 mg PO DAILY
METFORMIN HCl [Glucophage] 500 mg PO BID@0800,1800
Miconazole Nitrate [Desenex/Mitrazol/Zeasorb] See Dose Instructions TOPICAL BID
Pantoprazole [Protonix] 40 mg PO BID
07/27/25 18:00
Enoxaparin Sodium [Lovenox] 40 mg SC QPM
07/27/25 22:00
Cetirizine HCl [Zyrtec] 10 mg PO HS
HydrOXYZINE [Atarax] 100 mg PO HS
Lurasidone HCl [Latuda] 40 mg PO HS
Melatonin 10 mg PO HS
Abnormal Lab Results
07/26/25
19:55
WBC 10.9 H 10^3/uL
(4.8-10.8)
RBC 3.98 L 10^6/uL
(4.20-5.40)
Hgb 10.9 L g/dL
(12.0-16.0)
Hct 34.7 L %
(37.0-47.0)
MCHC 31.4 L g/dL
(33.0-37.0)
Absolute Neuts (auto) 7.4 H 10^3/uL
(1.4-6.5)
Absolute Monos (auto) 0.8 H 10^3/uL
(0.1-0.6)
Creatinine 1.2 H mg/dL
(0.6-1.0)
Alkaline Phosphatase 128 H U/L
(38-126)
07/26/25 19:55
07/26/25 19:55
Vital Signs
Initial and Last Documented VS:
Initial Vital Signs
Temp Pulse Resp BP Pulse Ox
97.4 F 83 16 109/65 96
07/26/25 18:52 07/26/25 18:52 07/26/25 18:52 07/26/25 18:52 07/26/25 18:52
Last Documented Vital Signs
Temp Pulse Resp BP Pulse Ox
97.6 F 67 14 138/84 100
07/30/25 07:49 07/30/25 09:08 07/30/25 07:49 07/30/25 09:08 07/30/25 07:49
Silverware Etcher consulted with Physician
Silverware Etcher consulted with physician?: Yes
Name of Physician Consulted: DR Figueroa
<David Figueroa MD - Last Filed: 07/30/25 12:59>
Orders/Labs/Results
Orders:
Orders
07/26/25 19:53
Test Result ONCE
07/26/25 19:55
Complete Blood Count/With Diff Urgent
Comprehensive Metabolic Panel Urgent
HCG, Serum Qualitative Screen Urgent
Lactic Acid Urgent
Blood Culture Urgent
SEVERINO Source: Blood/Venous
Specimen Description:
07/26/25 20:47
0.9% Sodium Chloride 1000 ml [Nss] 1,000 ml IV BOLUS
Foot, Left 3 View [CR Foot - Left Min 3 Views] Urgent
Comment:
Reason For Exam: trauma
07/26/25 21:13
Piperacillin/Tazo 3.375 Gram [Zosyn] 3.375 gram in 50 ml IV NOW
07/26/25 21:38
Morphine Sulfate 2 mg IV NOW STA
07/26/25 22:23
Vancomycin [Vancocin] 1,500 mg 0.9% Sodium Chloride 500 ml [Nss] 500 ml IV NOW
07/26/25 22:49
Admit/Transfer Patient As Directed
Co-Sign Provider:
Level of Care: Inpatient admission
Assign to:: Medical/Surgical
Physician / Group: Angel
Diagnosis: Diabetic foot infection
Reason for Hospitalization: diabetic foot infection with cellulitis
Expected length of stay greater than two midnights?: Yes
ELOS- Estimated Length of Stay in days: 2
I certify the patient meets the requirements for IP care: Yes
PRN Pain Medication Management As Directed
May give lesser potent ordered pain med per pt: Yes
preference::
Protocol:: Medication orders for pain may be administered in a
manner that supports deferring to patient preference
when the pt is:
- Requesting an ordered lesser potent pain medication.
Least to most potent pain medications are defined
as: acetaminophen < NSAID < tramadol < opioids
(morphine, oxycodone, hydromorphone).
- Requesting a lesser dose of the same medication IF
ORDERED.
- Requesting a less intrusive route of administration
if both routes are prescribed by the provider (PO <
IV).
07/26/25 22:56
Code Status As Directed
Resuscitation Status: Full Code
07/26/25 23:58
Acetaminophen [Tylenol] 650 mg PO Q4HPRN PRN
Bisacodyl [Dulcolax] 10 mg RECTAL [id number] PRN
Dextrose 50%-Water [Dextrose 50% Syringe] 12.5 grams IV [id number] PRN
Diphenhydramine [Benadryl] 25 mg PO [id number] PRN itching
Docusate W/Senna [Senokot-S] 1 tablet PO BIDPRN PRN
Glucagon [GlucaGen] 1 mg IM PRN PRN
Methocarbamol 750 mg PO Q6HPRN PRN muscle spasms
Morphine Sulfate 2 mg IV Q4HPRN PRN
Ondansetron Injectable [Zofran] 4 mg IV Q6HPRN PRN
Polyethylene Glycol Powder [Miralax] 17 grams PO DAILYPRN PRN
Sodium Chloride [[place], Saline Mist] 1 sprays NASAL [id number] PRN dry nasal
VANCOMYCIN Pharmacy to Dose [VANCOCIN Pharmacy to Dose] 1 each Pharmacy To Prepare [Call Pharmacy To Prepare] 0 ml IV PER PROTOCOL
07/26/25 23:58
Consult Notification Routine
Specialty to Notify: Infectious Disease
Date consulting provider notified: 07/27/25
Time consulting provider notified: 08:30
Notified:: Service
INFECTIOUS DISEASE CONSULT Routine
Consulting Provider: Tucker Pina
Was physician already notified: No
Reason for consult: diabetic foot infection
PODIATRY CONSULT Routine
Consulting Provider: Irma Guzmán
Was physician already notified: Yes
Reason for consult: diabetic foot infection
Activity As Directed
Activity Level: With Assistance
Bedside Glucose Monitoring As Directed
Frequency: AC&HS
Additional Instructions:: Change to q6h if pt on TPN, tube feeding or not eating
Vital Signs As Directed
Frequency: Per unit guidelines
Pulse Ox/spot Check [RESP] Routine
Quantity: 1
DX Deep Vein Thrombosis Video Routine
07/27/25 03:00
Piperacillin/Tazo 3.375 Gram [Zosyn] 3.375 gram in 50 ml IV Q6H
07/27/25 Breakfast
Regular
At Your Request: Full Participation
Does patient need a safe tray?: No
Levothyroxine [Synthroid] 50 mcg PO DAILY @ 0600
07/27/25 06:54
Basic Metabolic Panel IN AM
CRP [C-Reactive Protein] IN AM
Complete Blood Count/No Diff IN AM
ESR [Erythrocyte Sed Rate] IN AM
Glycohemoglobin (HgbA1c) IN AM
Magnesium IN AM
07/27/25 07:30
Insulin Aspart Corrective Low [Novolog Flexpen-Low Resistance] See Protocol SC AC
07/27/25 08:00
Budesonide/Formoterol 80/4.5 [Symbicort 80/4.5 Mcg Inhaler] 2 puff INH R BID
Buprenorphine [Subutex] 8 mg SL BID
Cholecalciferol (Vitamin D3) [VITAMIN D3 (cholecalciferol)] 25 mcg PO DAILY
Clonidine [Catapres] 0.2 mg PO Q12H
Escitalopram Oxalate [Lexapro] 10 mg PO DAILY
FOLic ACID [Folvite] 1 mg PO DAILY
Fenofibrate [Tricor] 48 mg PO DAILY
Lamotrigine [Lamictal] 250 mg PO BID
Losartan [Cozaar] 25 mg PO DAILY
METFORMIN HCl [Glucophage] 500 mg PO BID@0800,1800
Miconazole Nitrate [Desenex/Mitrazol/Zeasorb] See Dose Instructions TOPICAL BID
Pantoprazole [Protonix] 40 mg PO BID
07/27/25 18:00
Enoxaparin Sodium [Lovenox] 40 mg SC QPM
07/27/25 22:00
Cetirizine HCl [Zyrtec] 10 mg PO HS
HydrOXYZINE [Atarax] 100 mg PO HS
Lurasidone HCl [Latuda] 40 mg PO HS
Melatonin 10 mg PO HS
Abnormal Lab Results
07/26/25
19:55
WBC 10.9 H 10^3/uL
(4.8-10.8)
RBC 3.98 L 10^6/uL
(4.20-5.40)
Hgb 10.9 L g/dL
(12.0-16.0)
Hct 34.7 L %
(37.0-47.0)
MCHC 31.4 L g/dL
(33.0-37.0)
Absolute Neuts (auto) 7.4 H 10^3/uL
(1.4-6.5)
Absolute Monos (auto) 0.8 H 10^3/uL
(0.1-0.6)
Creatinine 1.2 H mg/dL
(0.6-1.0)
Alkaline Phosphatase 128 H U/L
(38-126)
07/26/25 19:55
07/26/25 19:55
Vital Signs
Initial and Last Documented VS:
Initial Vital Signs
Temp Pulse Resp BP Pulse Ox
97.4 F 83 16 109/65 96
07/26/25 18:52 07/26/25 18:52 07/26/25 18:52 07/26/25 18:52 07/26/25 18:52
Last Documented Vital Signs
Temp Pulse Resp BP Pulse Ox
97.6 F 67 14 138/84 100
07/30/25 07:49 07/30/25 09:08 07/30/25 07:49 07/30/25 09:08 07/30/25 07:49
<CORIN Hanson - Last Filed: 07/26/25 23:07>
MDM/Problems Addressed
MDM/Problems Addressed:
Patient is a 49-year-old with significant medical history currently resides in a assisted presents for cellulitis to left foot. She has multiple toe amputations to the left foot. She reports increasing swelling redness since last night.
Patient has a known plantar wound. There is a foul smell. Patient is afebrile white count 10.9. X-rays show diffuse soft tissue swelling. Patient has irregularity deformity of second toe. This is not new. Will treat for cellulitis IV Vanco and
Zosyn ordered. Patient had previous 'red man' syndrome however discussed with pharmacy to infuse at a slower rate. Patient admitted to the hospital service. Case discussed with Dr. Figueroa.
<CORIN Hanson - Last Filed: 07/26/25 23:07>
*Radiology
Radiology exam reviewed: radiology read reviewed
*Pulse Oximetry
SaO2: 95
Oxygen Mode of Delivery: Room air
Patient hypoxic: no
*Critical Care Note
Total Time (30-74mins, 75-104mins- exclusive of procedures): Not Applicable
ED Attending Note
<CORIN Hanson - Last Filed: 07/26/25 23:07>
-
Portions of this chart may have been created with voice recognition software.� Occasional wrong word or��sound alike� substitutions may have occurred due to the inherent limitations of voice recognition software.
<David Figueroa MD - Last Filed: 07/30/25 12:59>
ED Attending Note
Patient seen and examined by attending physician: Yes
ED Attending Note:
Patient with history of diabetes and multiple episodes of osteomyelitis, requiring toe amputations, presents to ED secondary to 24-hour history of sudden onset of left foot pain with swelling, similar to what she has experienced in the past. Denies
fever or chills. Denies trauma. Denies nausea or vomiting. Denies open wound.
Physical Exam
General: mild painful distress, not acutely ill. afebrile
Head: nc/at. eomi
Neck: supple. normal range of motion
Abdomen: normal bowel sounds. not tender.
Neuro: alert and oriented. no focal neurological deficits
Skin: left foot: swelling/erythema noted upto midfoot with moderate tenderness to palpation
Psychiatric: well kept. interactive and cooperative
Extremities: no edema. no calf tenderness.
History and exam consistent with left foot cellulitis, with concern for potential development of worsening symptoms, i.e. osteomyelitis. As such, patient will be treated with IV antibiotics and admitted for further evaluation and treatment.
Discharge Plan
Departure
Patient Disposition: Admit
Date of Disposition: 07/26/25
Time of Disposition: 22:50
Admit to: Med/Surg
Admit to doctor: hospitalist
Presentation/result/management discussed w/ accepting MD/DO: Hospitalist
Condition: Fair
Covid-19: Not Applicable
Discharge Problem:
Cellulitis of foot, left
Interventions
Interventions:
*Risk Screen - Suicide Last Done: 07/26/25 18:52
*General Assessment Last Done: 07/26/25 20:02
*Neglect/Abuse Screening Last Done: 07/26/25 18:52
*ED- Fall Risk Assessment Last Done: 07/26/25 20:02
*ED COVID-19 Vaccine History Last Done: 07/26/25 20:02
*ED Influenza Vaccine History Last Done: 07/26/25 20:02
*Nursing Disposition Last Done: 07/27/25 00:17
ED-Skin Assessment Last Done: 07/26/25 20:03
Discharge Date and Time
Discharge Date/Time: 07/27/25 00:18
[2025-07-26] MEDS: NSS 1000 IV (21:03)
[2025-07-26] MEDS: ZOSYN 50 IV (21:41)
[2025-07-26] MEDS: MORPHINE SULFATE 2 MG IV (21:41)
--- NOTE | 2025-07-26 22:41 | HPS.HSE ---
Family Physician
-
Family Physician: Yu Haney
Chief Complaint
-
Left foot infection
History of Present Illness
This is a 49-year-old female with past medical history significant for diabetes, hypertension, hyperlipidemia, recurrent lower extremity infection status post right BKA, status post left toe amputation a few months ago who presents to the emergency
department with acute onset swelling and redness of left foot.
Patient reported that she has had a 1 month ulcer of the left foot which is being managed at [facility]. However over the last 24 hours she said she developed redness and swelling suddenly. She has not felt feverish but she did note severe pain
and tenderness.
She completed course of antibiotics in March/April and has not been on antibiotics recently. At the time she was noted not to have allergies to penicillin and that she can tolerate vancomycin. She has not been colonized with MRSA in the past.
On arrival in the emergency department today she is afebrile, blood pressure 110/83 with a pulse rate of 83 and she was satting 97% on room air. CBC shows a white count of 10.9 with a left shift otherwise hemoglobin and platelets were similar to
prior. Electrolytes were all within the normal range. Creatinine is elevated 1.2 up from a baseline of 0.7.
X-ray of the left foot shows very severe diffuse soft tissue swelling and subcutaneous edema throughout the left foot. Prior dislocation of the proximal phalanx of the second toe noted and prior amputations noted as well.
Medical History
Past Medical History
Past Medical History: Reports Other (type 2 diabetes, diabetic neuropathy, right BKA, multiple toe amputations on the left, obstructive sleep apnea, obesity hypoventilation syndrome, chronic microcytic anemia, bipolar disorder, hypothyroidism,
chronic pain disorder, GERD, obesity,)
Past Surgical History: Reports Other ( Cholecystectomy, Gynecological (Tubel), Orthopedic (RBKA) and Other (Umbilical hernia repair, Gastric bypass sleeve))
Social History
Tobacco: Smoker
Alcohol: None
Drug: None
Family History
Family History: Not pertinent
Allergies / Home Medications
Allergies reflects when Allergies were last updated in [employer].
Home Medications with original date entered in [employer]
Allergy/Medication List:
Allergies
Allergy/AdvReac Type Severity Reaction Status Date / Time
aspirin Allergy Unknown Verified 10/18/24 03:07
barium iodide Allergy Unknown Verified 10/18/24 03:07
codeine Allergy Vomiting Verified 10/18/24 03:07
latex Allergy Rash Verified 10/18/24 03:07
Penicillins Allergy Unknown, Verified 10/18/24 13:15
tolerated
ceftriaxone
and
cefepime
in past
vancomycin AdvReac Rash Verified 10/18/24 13:18
Home Medications
acetaminophen 325 mg tablet 650 mg PO Q6HPRN PRN mild pain/temp>100.4 02/18/24
clonidine HCl 0.2 mg tablet 0.2 mg PO Q12H Blood Pressure 02/18/24
eucalyptus-menthol oral mucosal lozenge 3.1 mg mucous membrane Q1HPRN PRN cough 02/18/24
fenofibrate 54 mg tablet 54 mg PO DAILY HIGH TRIGLYCERIDE 02/18/24
folic acid 1 mg tablet 1 mg PO DAILY Supplement 02/18/24
furosemide 20 mg tablet 20 mg PO BID Fluid Retention/Swelling 02/18/24
lamotrigine 200 mg tablet (Lamictal) 250 mg PO BID Mental Health/Anxiety 02/18/24
levothyroxine 50 mcg tablet 50 mcg PO DAILY Thyroid 02/18/24
loperamide 2 mg tablet (Imodium A-D) 2 mg PO [id number] PRN diarrhea 02/18/24
magnesium hydroxide 400 mg/5 mL oral suspension (Milk of Magnesia) 30 ml PO DAILYPRN PRN if no bm in 3 days 02/18/24
melatonin 10 mg tablet 20 mg PO HS Sleep 02/18/24
metformin 500 mg tablet 500 mg PO BIDWMEAL Diabetes 02/18/24
methocarbamol 750 mg tablet 750 mg PO Q6HPRN PRN muscle spams 02/18/24
ondansetron HCl 4 mg tablet 8 mg PO Q8HPRN PRN nausea 02/18/24
pantoprazole 40 mg tablet,delayed release 40 mg PO BID GERD 02/18/24
semaglutide 0.25 mg or 0.5 mg (2 mg/3 mL) subcutaneous pen injector (Ozempic) 1 mg SC TU Diabetes 02/18/24
sodium chloride 0.65 % nasal spray aerosol 1 spray intranasal [id number] PRN dry nasal 02/18/24
sodium phosphates 19 gram-7 gram/118 mL enema (Fleet Enema) 118 ml ND DAILYPRN PRN if suppository is ineffective 02/18/24
acetaminophen 500 mg tablet (Tylenol Extra Strength) 1,000 mg PO TIDPRN 10/18/24
bisacodyl 10 mg rectal suppository (Dulcolax (bisacodyl)) 10 mg ND DAILYPRN PRN if no bm aftr mom 10/18/24
budesonide-formoterol HFA 80 mcg-4.5 mcg/actuation aerosol inhaler (Symbicort) 2 inh inhalation R BID 10/18/24
capsaicin 0.075 % topical cream 1 applic topical Q8HPRN PRN 8g to affected area 10/18/24
cetirizine 10 mg tablet (Zyrtec) 10 mg PO HS 10/18/24
cholecalciferol (vitamin D3) 25 mcg (1,000 unit) tablet (Vitamin D3) 25 mcg PO DAILY 10/18/24
diphenhydramine HCl 25 mg capsule (Benadryl) 25 mg PO [id number] PRN itching 10/18/24
escitalopram oxalate 10 mg tablet (Lexapro) 10 mg PO DAILY 10/18/24
hydroxyzine HCl 50 mg tablet 50 mg PO Q6HPRN PRN anxiety 10/18/24
hydroxyzine HCl 50 mg tablet 100 mg PO HS 10/18/24
losartan 25 mg tablet 25 mg PO DAILY 10/18/24
menthol 5 % topical patch (Biofreeze (menthol)) 1 patch topical DAILYPRN PRN right shoulder 10/18/24
nystatin 100,000 unit/gram topical powder 1 applic topical BID under breasts 10/18/24
buprenorphine 8 mg-naloxone 2 mg sublingual tablet 1 tab sublingual BID 03/07/25
doxycycline hyclate 100 mg tablet 100 mg PO BID 03/07/25
lurasidone 40 mg tablet (Latuda) 40 mg PO HS 03/07/25
Review of Systems
-
History Source: Patient
A 12 point ROS was completed and negative except as noted: Yes
Constitutional: Reports Chills; Denies Fever
EENT: Denies Sore Throat
Respiratory: Denies Cough or Trouble Breathing
Cardiac: Denies Chest Pain or Palpitations
Abdomen/GI: Reports Abdominal Pain and Nausea; Denies Vomiting or Diarrhea
: Denies Dysuria, Frequency or Flank Pain
Musculoskeletal: Reports Joint Pain and Edema
Skin: Reports See HPI
Neurological: Reports No Symptoms
Endocrine: Reports No Symptoms
Hematologic/Lymphatic: Reports No Symptoms
Psych: Reports No Symptoms
Physical Exam
Vital Signs
Vital Signs
Temp Pulse Resp BP Pulse Ox
97.4 F 83 16 107/71 95
07/26/25 18:52 07/26/25 18:52 07/26/25 18:52 07/26/25 22:00 07/26/25 20:36
Physical Exam
General: Other (49y F in no acute distress.)
HEENT: Moist mucous membranes, PERRLA and Other (Thick neck.)
Respiratory: Other (Decreased BS at bases - otherwise clear.)
Cardiac: S1/S2 and Regular Rhythm; No Murmur
GI: Soft, Non Tender, Non Distended and Normal Bowel Sounds
Rectal: Deferred by Provider
Genito-urinary: Deferred by me
Musculoskeletal: No Clubbing, No Cyanosis and Other (R BKA prosthesis, L middle toe amputations, Severe swelling of the left foot with erythema from the distal phalanxes to the middle of the left foot.)
Skin: Warm
Neuro: AO x 3
Hematologic/Lymphatic: No Lymphadenopathy
Psych: Calm
Laboratory Results
-
07/26/25 19:55
07/26/25 19:55
Laboratory Results
Lactic Acid 1.7 mmol/L (0.7-2.0) 07/26/25 19:55
Total Bilirubin 0.3 mg/dl (0.2-1.3) 07/26/25:55
AST 15 U/L (14-36) 07/26/25:
ALT 11 U/L (0-35) 07/26/25:55
Alkaline Phosphatase 128 U/L (38-126) H 07/26/25:
Data Reviewed
-
Diagnostic Radiology: Report Reviewed by me
Lab Data: Labs Reviewed by me
Old Records: Reviewed
Impression/Plan
-
IMPRESSION:
49-year-old history of diabetes complicated by diabetic foot infections in the past coming in with acute onset infection for the last 24 hours in the setting of 1 month diabetic foot ulcer. She is currently afebrile and non-tachycardic. She has a
ulcer on the mid-ball of the left foot. She has no evidence of any endorgan damage at this time.
PLAN:
Diabetic foot infection
- admit to med/surg
- blood cultures
- check crp/esr,
- podiatry consult
- ID consult, mri per id
- mrsa swab
- continue vanc/zosyn for now
Dm II - not currently on insulin
- sliding scale insulin for now
- hold metformin for now
HTN - currently well controlled
- continue clonidine with hold parameters
- continue losartan
- hold lasix for now
BIPOLAR d/o
- continue lamotrigine,
- continue lurasidone
Hypothyroid
- continue synthroid
DVT PPX - lovenox sq
Code status - Full Code
[2025-07-26] MEDS: VANCOCIN 530 MG IV (23:22)
[2025-07-27 00:10] VITALS: BP 113/66; BMI 32.0
[2025-07-27] MEDS: MORPHINE SULFATE 2 MG IV ×2 (00:53→04:53)
--- NOTE | 2025-07-27 02:14 | PTCARENOTE ---
Patient received from ED via stretcher. She was able to stand pivot to bed from stretcher. IVF and IV Vancomycin infusing. Patient toleration well. She was oriented to room and surroundings. Morphine 2mg for left foot pain. See nursing
assessment for further physical findings.
[2025-07-27] MEDS: ZOSYN 50 IV ×4 (03:40→21:47)
[2025-07-27] MEDS: SYNTHROID 50 MCG PO (04:52)
[2025-07-27 07:21] LABS: Hematocrit 29.8 % (37.0-47.0); Hemoglobin 9.5 g/dL (12.0-16.0); Mean Corp Hgb Conc. 31.9 g/dL (33.0-37.0); Mean Corpuscular Volume 83.7 fL (81.0-99.0); Platelet Count 351 10^3/uL (130-400); Red Cell Dist. Width 13.3 % (11.5-14.5)
[2025-07-27 07:28] LABS: Glucose - Point of Care 94 mg/dl (70-99)
[2025-07-27 07:32] LABS: Blood Urea Nitrogen 14 mg/dl (7-17); Calcium 8.9 mg/dl (8.4-10.2); Carbon Dioxide 27 mmol/L (22-30); Chloride 106 mmol/L (98-107); Estimated Creatinine Clearance 67 ml/min; Glucose 80 mg/dl (70-99); Magnesium 1.9 mg/dl (1.6-2.3); Potassium 4.2 mmol/L (3.5-5.1); Sodium 132 mmol/L (135-145); eGFR > 60.00
[2025-07-27 07:51] LABS: C-Reactive Protein 189.20 mg/L (0.0-10.00)
[2025-07-27 07:55] VITALS: BP 115/72
--- NOTE | 2025-07-27 08:00 | PHA.VAN.IN ---
Assessment
- Assessment
Renal Function: SCR Appears Elevated from baseline (SCR 1.2 --> 1.1 --> 0.7)
Concomitant Antimicrobials: piperacillin/tazobactam
Plan
- Plan
Initial / Loading Dose: 1500mg - 23:22
Maintenance Regimen: dosing by level - give 1250mg x1 at 1800 today (infuse over 2 H)
Monitoring: random 07/28 06
SCR slightly elevated from baseline but appears to be improving
Anticipate renal function to continue to improve - will hold off on scheduling dose as will likely need dose adjustments with unstable SCR
Pharmacokinetics Vancomycin I
- -
Patient Age: 49
Patient Sex: Female
Vancomycin Day #: 1
Indication: Skin And Soft Tissue
Requesting Provider: Dr. Ortiz
Pertinent Antimicrobial Allergies:
vancomycin - infusion reaction
Height / Weight:
Height 5 ft 5 in
Actual Weight 87.26 kg
Pertinent Past Medical History: BMI~32, DM II, BKA
- Vital Signs / Lab Results
Temp Pulse Resp BP Pulse Ox
98.3 F 69 19 115/72 97
07/27/25 07:55 07/27/25 07:55 07/27/25 07:55 07/27/25 07:55 07/27/25 07:55
Lab Results - Hematology
07/26/25 07/27/25
19:55 06:54
WBC 10.9 H 9.5
Lab Results - Chemistry
07/26/25 07/27/25
19:55 06:54
BUN 16 14
Creatinine 1.2 H 1.1 H
Estimated Creat Clear 67
Albumin 4.1
07/26/25
19:55
Lactic Acid 1.7
[2025-07-27] MEDS: LAMICTAL 250 MG PO ×2 (08:06→21:44)
[2025-07-27] MEDS: COZAAR 25 MG PO (08:07)
[2025-07-27] MEDS: LEXAPRO 10 MG PO (08:07)
[2025-07-27] MEDS: PROTONIX 40 MG PO ×2 (08:08→21:46)
[2025-07-27] MEDS: SUBUTEX 8 MG SL ×2 (08:08→21:46)
[2025-07-27] MEDS: FOLVITE 1 MG PO (08:08)
[2025-07-27] MEDS: VITAMIN D3 (cholecalciferol) 25 MCG PO (08:08)
[2025-07-27] MEDS: TRICOR 48 MG PO (08:08)
[2025-07-27] MEDS: GLUCOPHAGE 500 MG PO ×2 (08:08→18:07)
[2025-07-27] MEDS: CATAPRES 0.2 MG PO (08:08)
[2025-07-27] MEDS: DESENEX/MITRAZOL/ZEASORB 1 APPLIC TOPICAL ×2 (08:09→21:44)
--- NOTE | 2025-07-27 08:15 | W.PN.HOSP.TC ---
Today's Communication/Plan
-
see bold
Assessment / Plan
Assessment / Plan
49-year-old history of diabetes complicated by diabetic foot infections in the past coming in with acute onset infection for the last 24 hours in the setting of 1 month diabetic foot ulcer. She is currently afebrile and non-tachycardic. She has a
ulcer on the mid-ball of the left foot. She has no evidence of any endorgan damage at this time.
#Left foot ulcer with surrounding cellulitis and probable osteomyelitis
ESR and CRP elevated, x-rays show severe soft tissue swelling and edema throughout the left foot and dislocation of the proximal phalanx of the second toe
Appreciate ID input, continue vancomycin/Zosyn, left foot MRI requested, follow-up on wound culture
Podiatry consult requested
Trend fever and white count, pain meds
#Type 2 diabetes
Hemoglobin A1c 5.7
Carb controlled diet, sliding scale insulin
#Essential hypertension
Continue clonidine, losartan, resume Lasix
#Bipolar disorder
Continue lamotrigine, lurasidone
#Hypothyroidism
Continue Synthroid
#History of opioid use disorder
Continue Suboxone
Hypothyroid
- continue synthroid
DVT prophylaxis�subcu Lovenox
Full code
Total time spent to see the patient on the floor, examine the patient, review data and lab results, discuss treatment plan with patient, nursing staff around 38 minutes.
Physical Exam
General: No acute distress
HEENT: Normocephalic, Atraumatic, EOMI, MMM
Respiratory: Clear to Auscultation bilaterally
Cardiac: Normal S1/S2, Regular Rate and Rhythm
GI: Soft, Nontender, Nondistended, Normal Bowel Sounds
Extremities: No Clubbing, Cyanosis
Right BKA noted
L middle toe amputations, severe swelling of the left foot with erythema from the distal phalanxes to the middle of the left foot
Neuro: Nonfocal/Grossly Intact
Psych: Calm, Cooperative
Anticipated Discharge: > 48 hours
Subjective/Interval History
-
Date of Service: July 27, 2025
Patient complains of severe left foot pain. She denies abdominal pain. No chest pain, no shortness of breath. No fever, no vomiting.
Objective Data
-
Labs:
Laboratory Results
07/26/25 07/27/25
19:55 06:54
WBC 9.5
Hgb 9.5 L
Hct 29.8 L
Plt Count 351
Sodium 136 132 L
Potassium 4.3 4.2
Chloride 101 106
Carbon Dioxide 28 27
BUN 16 14
Creatinine 1.2 H 1.1 H
Glucose 98 80
Calcium 9.7 8.9
Total Bilirubin 0.3
AST 15
ALT 11
Alkaline Phosphatase 128 H
Vital Signs:
Vital Signs
Temp Pulse Resp BP Pulse Ox
98.3 F 69 19 115/72 97
07/27/25 07:55 07/27/25 07:55 07/27/25 07:55 07/27/25 07:55 07/27/25 07:55
I&O
07/26/25 07/27/25 07/28/25
06:59 06:59 06:59
Intake Total 550 / 550
Balance 550 / 550
--- NOTE | 2025-07-27 08:30 | CON.ID ---
Addendum entered and electronically signed by Maggi Chavez MD 07/27/25 13:05:
I personally performed a history and physical exam of the patient and discussed management with the resident. I reviewed the resident's note and agree with the documented findings and plan of care HPI/CC with the following additions/corrections:
Ms Barba is a 49 year old female with history of right BKA, DM2 who presented here for a 1 month history of an ulcer on the left foot which abruptly became red, swollen and tender. No fevers reported.
Since arrival here she has been afebrile, bp stable, wbc initially 10.9 now 9.5, hgb 9.5, plt 351, no L shift, na 132, cr 1.2 from a baseline of 0.7, foot xray severe diffuse soft tissue swelling, dislocation of the proximal phalanx of the 2nd toe,
previous amputations of digits,
Physical Exam
General: NAD
HEENT: Moist mucous membranes, PERRLA and Other (Thick neck.)
Respiratory: Other (Decreased BS at bases - otherwise clear.)
Cardiac: S1/S2 and Regular Rhythm; No Murmur
GI: Soft, Non Tender, Non Distended and Normal Bowel Sounds
Musculoskeletal: marked swelling of the L foot with tenderness, ulcer over the head of the metatarsal with probe to bone, surrounding callous
Skin: Warm
Neuro: AO x 3
Hematologic/Lymphatic: No Lymphadenopathy
Psych: Calm
A&P
Diabetic Foot Infection
Probable osteomyelitis
JAMESON
- wound culture obtained by me
- blood cultures x2
- mrsa screen pending
- podiatry consulted
- MRI foot with IV contrast
- agree with vancomycin and zosyn
Original Note:
Documented by User: Yulisa Millard MD, Resident 07/27/25 12:20
Consultation
-
Date/Time Consultation Requested: 07/26/2025 at 23:58
Date/Time Consultation Performed: 07/27/2025 at 8 AM
Requesting Provider: Casimiro Ortiz
Performing Provider: Maggi Chavez
Chief Complaint / Past History
Chief Complaint
Swelling and redness of the left foot
History of Present Illness
Patient is a 49-year-old female who presented to emergency department with acute onset swelling and redness of the left foot.� She has a past medical history of diabetes, diabetic neuropathy, hypertension, hyperlipidemia, obstructive sleep apnea,
obesity, obesity hypoventilation syndrome, chronic microcytic anemia, bipolar disorder, hypothyroidism, chronic pain disorder, GERD, recurrent lower extremity infections, status post right BKA, multiple left toe amputations, and status post left toe
amputation on March of this year.� The patient reported that she had been contending with an ulcer of the left plantar forefoot for approximately 1 month which was being managed at the correction.� Unfortunately, 24 hours prior to her presentation
she developed redness and swelling suddenly around that ulcer.� She did not have any fever, but she did note that she was having severe pain and tenderness of the wound.� She completed a course of antibiotics in March and April around the time of her
amputation and has not been on any antibiotics since.� In the emergency department she was afebrile, she had a blood pressure of 93/57, had a heart rate of 83, oxygen saturation of 97% on room air.� She had leukocytosis with a white blood cell count
of 10.9 and a creatinine of 1.2 with unremarkable CBC and chemistry.� An x-ray of the left foot was conducted showing very severe diffuse soft tissue swelling and subcutaneous edema throughout the left foot and dislocation of the proximal phalanx of
the second toe.� Zosyn and vancomycin was started in the emergency department. Patient has a history of vancomycin infusion reaction however pharmacy gave the patient the infusion at a slower rate.� Pain was managed with morphine and the patient was
admitted for diabetic foot infection.
Past History
Additional Past Medical History:
diabetes
diabetic neuropathy
hypertension
hyperlipidemia
obstructive sleep apnea
obesity
obesity hypoventilation syndrome
chronic microcytic anemia
bipolar disorder
hypothyroidism
chronic pain disorder
GERD
recurrent lower extremity infections
Additional Past Surgical History:
status post right BKA 2 years ago
multiple left toe amputations
status post left toe amputation on March of this year
Cholecystectomy
tubal ligation
umbilical hernia repair
gastric bypass
Allergy History:
aspirin Allergy (Verified 07/26/25 18:52)
Unknown
barium iodide Allergy (Verified 07/26/25 18:52)
Unknown
codeine Allergy (Verified 07/26/25 18:52)
Vomiting
latex Allergy (Verified 07/26/25 18:52)
Rash
vancomycin Adverse Reaction (Verified 07/26/25 18:52)
vancomycin infusion reaction (aka red man syndrome)
Medications Reviewed: Yes
Current Antibiotics:
Allergies
Allergy/AdvReac Type Severity Reaction Status Date / Time
aspirin Allergy Unknown Verified 07/26/25 18:52
barium iodide Allergy Unknown Verified 07/26/25 18:52
codeine Allergy Vomiting Verified 07/26/25 18:52
latex Allergy Rash Verified 07/26/25 18:52
vancomycin AdvReac vancomycin Verified 07/26/25 18:52
infusion
reaction
(aka red
man
syndrome)
Home Medications
acetaminophen 325 mg tablet 650 mg PO Q6HPRN PRN mild pain/temp>100.4 02/18/24
clonidine HCl 0.2 mg tablet 0.2 mg PO Q12H Blood Pressure 02/18/24
eucalyptus-menthol oral mucosal lozenge 3.1 mg mucous membrane Q1HPRN PRN cough 02/18/24
fenofibrate 54 mg tablet 54 mg PO DAILY cholesterol/triglycerides 02/18/24
folic acid 1 mg tablet 1 mg PO DAILY Supplement 02/18/24
furosemide 20 mg tablet 20 mg PO BID Fluid Retention/Swelling 02/18/24
lamotrigine 200 mg tablet (Lamictal) 250 mg PO BID bipolar disorder 02/18/24
levothyroxine 50 mcg tablet 50 mcg PO DAILY Thyroid 02/18/24
loperamide 2 mg tablet (Imodium A-D) 2 mg PO [id number] PRN diarrhea 02/18/24
magnesium hydroxide 400 mg/5 mL oral suspension (Milk of Magnesia) 30 ml PO DAILYPRN PRN if no bm in 3 days 02/18/24
melatonin 10 mg tablet 20 mg PO HS Sleep 02/18/24
metformin 500 mg tablet 500 mg PO BIDWMEAL Diabetes 02/18/24
ondansetron HCl 4 mg tablet 8 mg PO Q8HPRN PRN nausea 02/18/24
pantoprazole 40 mg tablet,delayed release 40 mg PO BID GERD 02/18/24
semaglutide 0.25 mg or 0.5 mg (2 mg/3 mL) subcutaneous pen injector (Ozempic) 1 mg SC TU Diabetes 02/18/24
sodium chloride 0.65 % nasal spray aerosol 1 spray intranasal [id number] PRN dry nasal 02/18/24
sodium phosphates 19 gram-7 gram/118 mL enema (Fleet Enema) 118 ml SD DAILYPRN PRN if suppository is ineffective 02/18/24
acetaminophen 500 mg tablet (Tylenol Extra Strength) 1,000 mg PO TIDPRN Pain 10/18/24
bisacodyl 10 mg rectal suppository (Dulcolax (bisacodyl)) 10 mg SD DAILYPRN PRN if no bm after mom 10/18/24
budesonide-formoterol HFA 80 mcg-4.5 mcg/actuation aerosol inhaler (Symbicort) 2 inh inhalation R BID Lung/Breathing Issues 10/18/24
cetirizine 10 mg tablet (Zyrtec) 10 mg PO HS Allergies 10/18/24
cholecalciferol (vitamin D3) 25 mcg (1,000 unit) tablet (Vitamin D3) 25 mcg PO DAILY Supplement 10/18/24
diphenhydramine HCl 25 mg capsule (Benadryl) 25 mg PO [id number] PRN itching 10/18/24
escitalopram oxalate 10 mg tablet (Lexapro) 10 mg PO DAILY depression/anxiety 10/18/24
hydroxyzine HCl 50 mg tablet 50 mg PO Q6HPRN PRN anxiety 10/18/24
hydroxyzine HCl 50 mg tablet 100 mg PO HS anxiety 10/18/24
losartan 25 mg tablet 25 mg PO DAILY Blood Pressure 10/18/24
menthol 5 % topical patch (Biofreeze (menthol)) 1 patch topical DAILYPRN PRN right shoulder 10/18/24
nystatin 100,000 unit/gram topical powder 1 applic topical BID under breasts 10/18/24
buprenorphine 8 mg-naloxone 2 mg sublingual tablet 1 tab sublingual BID SUBSTANCE USE DISORDER 03/07/25
lurasidone 40 mg tablet (Latuda) 40 mg PO HS bipolar disorder 03/07/25
epinephrine 0.3 mg/0.3 mL injection, auto-injector 0.3 mg IM PRN PRN allergic reaction to bees 07/27/25
lorazepam topical ANXIETY 07/27/25
lurasidone 60 mg tablet 60 mg PO DAILY 07/27/25
miconazole nitrate 2 % topical powder (Antifungal (miconazole)) 1 applic topical DAILY left groin rash 07/27/25
Social History
Tobacco: Former Smoker
Alcohol: None
Drug: Former User
Personal:
Living: [facility]
Review of Systems
Review of Systems
Cardiovascular: Negative Chest Pain or Dyspnea
Respiratory: Negative Dyspnea or Cough
Gasteroenterology: Negative Nausea, Vomiting or Diarrhea
Genital / Urological: Negative Dysuria or Hematuria
Hematologic: Negative Bleeding Problems
Endocrine: Negative Weight Change
Musculoskeletal: Joint Pain (Bottom of left foot), Joint Swelling (Bottom of left foot) and Other (Bottom of left foot pain)
Skin / Hair / Nails: Lesions (Wound on bottom of left foot)
Vital Signs
Temp Pulse Resp BP Pulse Ox
98.3 F 69 19 115/72 97
07/27/25 07:55 07/27/25 07:55 07/27/25 07:55 07/27/25 07:55 07/27/25 07:55
Physical Exam
Physical Exam
Constitutional: No Acute Distress, Well Developed, Non-toxic and Obese
Head: Normocephalic
Eyes: Pupils Equal and Pupils Round
Pharynx: Benign; Negative Erythema
Oral: Poor Dentition
Cardiovascular: Regular Rate and S1/S2; Negative Murmur or Rub
Pulmonary: Clear; Negative Wheezes, Rales, Rhonchi, Coarse or Non Labored
Gastrointestinal: Soft, Non Tender, Non Distended and Normal Bowel Sounds
Extremities: Negative Clubbing
Skin: Ulcers (Ulcer at head of 3rd metatarsal with probe to bone, Swelling throughout distal portion of L foot with tenderness)
Wound: Other (Ulcer at head of 3rd metatarsal with probe to bone, Swelling throughout distal portion of L foot with tenderness)
Neurological: Awake, Alert, Oriented and AO x 3
Psychological: Calm
Lab / Diagnostic Study Results
07/27/25 06:54
07/27/25 06:54
Abs Immat Gran (auto) 0.0 10^3/uL (0-0.05) 07/26/25 19:55
Absolute Neuts (auto) 7.4 10^3/uL (1.4-6.5) H 07/26/25 19:55
Absolute Lymphs (auto) 2.3 10^3/uL (1.2-3.4) 07/26/25 19:55
Absolute Monos (auto) 0.8 10^3/uL (0.1-0.6) H 07/26/25 19:55
Absolute Basos (auto) 0.0 10^3/uL (0-0.2) 07/26/25 19:55
Immature Gran % 0.3 % (0-0.5) 07/26/25 19:55
Neutrophils % 67.4 % (42.2-75.2) 07/26/25 19:55
Lymphocytes % 21.4 % (20.5-51.1) 07/26/25 19:55
Monocytes % 7.7 % (1.7-9.3) 07/26/25 19:55
Eosinophils % 3.0 % (0-6) 07/26/25 19:55
Basophils % 0.2 % (0-2) 07/26/25 19:55
ESR 83 mm/hour (0-20) H 07/27/25 06:54
Lactic Acid 1.7 mmol/L (0.7-2.0) 07/26/25 19:55
C-Reactive Protein 189.20 mg/L (0.0-10.00) H 07/27/25 06:54
Imaging:
-Left foot Xray 07/26/25:
1. VERY SEVERE DIFFUSE SOFT TISSUE SWELLING and subcutaneous edema throughout the left foot.
2. DISLOCATION of the PROXIMAL PHALANX of the 2nd toe.
3. Previous amputation of the 1st metatarsal and great toe.
4. Previous amputation of the distal 3rd metatarsal and 3rd toe.
5. Previous amputation of the phalanges of the 4th toe.
6. Severe pes planus deformity.
7. 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
Microbiology Results
Micro:
07/27/25 10:31 Wound Culture - Pending
Foot - Left Gram Stain - Pending
07/27/25 00:32 MRSA Screen - Pending
Nose
07/26/25 19:55 Blood Culture - Pending
Blood/Venous
Assessment / Plan
Assessment/plan:
-Diabetic foot infection/ulcer: Unresolved
Pending blood cultures x 2 -1 additional blood culture ordered today for total of 2
MRSA screen pending
Podiatry consulted
MRI of left foot with IV contrast ordered
Continue vancomycin and Zosyn

Documented by User: Maggi Chavez MD 07/27/25 13:04
Consultation
-
Performing Provider: Yulisa Millard
--- NOTE | 2025-07-27 08:45 | WOUNDNOTE ---
[facility] RN note: Patient admitted with diabetic foot infection. Patient admitted from SNF.
See H&P for complete history.
PMH: DM, HTN, R BKA d/t infection, L toe amp a few months ago, obesity, anemia, bipolar, chronic pain, cholecystectomy, umbilical hernia, gastric bypass sleeve, smoker.
Wound Location and type/assessment: Patient admitted with: L plantar forefoot full thickness diabetic ulcer suspect to subcutaneous layer, pink with purulent exudate. +Edema and diffuse erythema L foot. +Pedal pulse easily heard via portable
Doppler. Coccyx small stage 2 pressure injury. R BKA distal stump small deep dermal ulcer r/t pressure from her prosthesis. She stated she's hoping to grape picker her new prosthesis on 08/02. L anterior LE with few small dermal abrasions from patient
skin picking.
Appetite: good.
Pressure redistribution devices in place: [employer] air bed. She can turn self in bed. She doesn't allow a pillow to off load her L heel.
Plan: Silicone border foam applied to R BKA stump open area, L fernandes abrasion from patient picking her skin. Coccyx silicone border foam maintained. Dressing applied to L foot. Podiatry to manage L foot wound. Wound culture taken from L foot and
left in room in case ID orders wound culture. Discussed with RN Melony. L heel off bed with air chair cushion. Instructed patient pressure injury prevention measures.
Will confirm orders with hospitalist and update nurse.
Updated care plan and will follow as needed.
Note to case management of equipment requested for discharge: Air mattress at [facility] if not already in place.
--- NOTE | 2025-07-27 09:08 | WOUNDNOTE ---
[facility] RN note: Patient admitted with diabetic foot infection. Patient admitted from SNF.
See H&P for complete history.
PMH: DM, HTN, R BKA d/t infection, L toe amp a few months ago, obesity, anemia, bipolar, chronic pain, cholecystectomy, umbilical hernia, gastric bypass sleeve, smoker.
Wound Location and type/assessment: Patient admitted with: L plantar forefoot full thickness diabetic ulcer suspect to subcutaneous layer, pink with purulent exudate. +Edema and diffuse erythema L foot. +Pedal pulse easily heard via portable
Doppler. Coccyx small stage 2 pressure injury. R BKA distal stump small deep dermal ulcer r/t pressure from her prosthesis. She stated she's hoping to clam picker her new prosthesis and a L foot off loading diabetic shoe on 08/02/25 from [employer] in
[place]. L anterior LE with few small dermal abrasions from patient skin picking.
Appetite: good.
Pressure redistribution devices in place: [employer] air bed. She can turn self in bed. She doesn't allow a pillow to off load her L heel.
Plan: Silicone border foam applied to R BKA stump open area, L fernandes abrasion from patient picking her skin. Coccyx silicone border foam maintained. Dressing applied to L foot. Podiatry to manage L foot wound. Wound culture taken from L foot and
left in room in case ID orders wound culture. Discussed with RN Melony. L heel off bed with air chair cushion. Instructed patient pressure injury prevention measures. Instructed patient not to apply any weight/pressure to L forefoot and to discuss
weightbearing restrictions with patron attendant.
Will confirm orders with hospitalist and updated RN Pat.
Updated care plan and will follow as needed.
Note to case management of equipment requested for discharge: Air mattress at SNF if not already in place.
[2025-07-27] MEDS: MORPHINE SULFATE 4 MG IV (10:10)
[2025-07-27 10:31] LABS: Glycohemoglobin (HgbA1c) 5.7 % (4.0-5.9)
[2025-07-27 11:23] LABS: Glucose - Point of Care 107 mg/dl (70-99)
[2025-07-27 11:48] VITALS: BMI 32.0
--- NOTE | 2025-07-27 14:03 | CM ---
CM reviewed chart, patient seen bedside, initial assessment completed.
Patient confirmed LTC resident at [facility], about two years.
Patient is WC bound, assisted with all ADLS.
Patient reports she is not receiving therapy at [facility].
PCP Yu Haney, Pharmacy [facility].
Referral placed in [facility].
Patient confirms plan upon d.c to return to [facility].
Plan; return to [facility] when stable
[facility]
Report: [phone]
--- NOTE | 2025-07-27 14:03 | WOUNDNOTE ---
[facility] RN note: Manish texted Dr. Jackson re: defer to Dr. Jackson to manage patient's L foot wound and requested he put any wound care order for nursing to do and any weight bearing restrictions.
[2025-07-27 15:46] VITALS: BP 95/60
--- NOTE | 2025-07-27 17:14 | W.PN.UPDATE ---
Addendum entered and electronically signed by Jose Delvalle DPM 07/27/25 17:31:
49F presents with sub MT head 2 wound probe to bone with prior amputations
- will follow MRI for surgical planning
-- discussed TMA with patient
- continue IV abx
- elevate LLE on 2-3 pillows, keep heel in floating position
- LWC rendered saline packing, dsd, sabrina
- will continue to monitor
Original Note:
Update Note
Progress Note Update
49F presents with sub MT head 2 wound probe to bone with prior amputations
- will follow MRI for surgical planning
-- discussed TMA with patient
- continue IV abx
- elevate RLE on 2-3 pillows, keep heel in floating position
- LWC rendered saline packing, dsd, sabrina
- will continue to monitor
[2025-07-27 17:19] LABS: Glucose - Point of Care 108 mg/dl (70-99)
[2025-07-27] MEDS: VANCOCIN 275 MG IV (18:06)
[2025-07-27] MEDS: LASIX 40 MG IV (18:06)
[2025-07-27] MEDS: LOVENOX 40 MG SC (18:07)
[2025-07-27] MEDS: ROXICODONE 10 MG PO ×2 (18:07→23:32)
[2025-07-27] MEDS: ZOFRAN 4 MG IV (18:27)
[2025-07-27 21:40] LABS: Glucose - Point of Care 86 mg/dl (70-99)
[2025-07-27] MEDS: CATAPRES PO (21:43)
[2025-07-27] MEDS: MELATONIN 10 MG PO (23:08)
[2025-07-27] MEDS: ZYRTEC 10 MG PO (23:09)
[2025-07-27] MEDS: LATUDA 40 MG PO (23:09)
[2025-07-27 23:20] VITALS: BP 104/61
[2025-07-27] MEDS: ATARAX 100 MG PO (23:23)
[2025-07-28] MEDS: ZOSYN 50 IV ×4 (03:37→20:38)
[2025-07-28] MEDS: SYNTHROID 50 MCG PO (04:27)
[2025-07-28 06:00] VITALS: BMI 31.3
[2025-07-28 07:00] VITALS: BP 134/76
[2025-07-28 07:29] LABS: Glucose - Point of Care 90 mg/dl (70-99)
--- NOTE | 2025-07-28 07:40 | W.PN.HOSP.TC ---
Today's Communication/Plan
-
see bold
Assessment / Plan
Assessment / Plan
49-year-old history of diabetes complicated by diabetic foot infections in the past coming in with acute onset infection for the last 24 hours in the setting of 1 month diabetic foot ulcer. She is currently afebrile and non-tachycardic. She has a
ulcer on the mid-ball of the left foot. She has no evidence of any endorgan damage at this time.
#Left foot ulcer with surrounding cellulitis and probable osteomyelitis
ESR and CRP elevated, x-rays show severe soft tissue swelling and edema throughout the left foot and dislocation of the proximal phalanx of the second toe
Appreciate ID input, continue vancomycin/Zosyn, left foot MRI requested, follow-up on wound culture
Podiatry following, patient may need TMA
Trend fever and white count, pain meds
#Type 2 diabetes
Hemoglobin A1c 5.7
Patient requesting regular diet, sliding scale insulin
#Essential hypertension
Continue clonidine, losartan, resume Lasix
#Bipolar disorder
Continue lamotrigine, lurasidone
#Hypothyroidism
Continue Synthroid
#History of opioid use disorder
Continue Suboxone
Hypothyroid
- continue synthroid
DVT prophylaxis�subcu Lovenox
Full code
Dispo - return to [facility] upon discharge
Total time spent to see the patient on the floor, examine the patient, review data and lab results, discuss treatment plan with patient, nursing staff around 37 minutes.
Physical Exam
General: No acute distress
HEENT: Normocephalic, Atraumatic, EOMI, MMM
Respiratory: Clear to Auscultation bilaterally
Cardiac: Normal S1/S2, Regular Rate and Rhythm
GI: Soft, Nontender, Nondistended, Normal Bowel Sounds
Extremities: No Clubbing, Cyanosis
Right BKA noted
L middle toe amputations, severe swelling of the left foot with erythema from the distal phalanxes to the middle of the left foot
Neuro: Nonfocal/Grossly Intact
Psych: Calm, Cooperative
Anticipated Discharge: > 48 hours
Subjective/Interval History
-
Date of Service: July 28, 2025
Patient complains of severe left foot pain. She was nauseous last night, no vomiting. Denies chest pain, denies shortness of breath. No fever. Denies constipation.
Objective Data
-
Labs:
Laboratory Results
07/28/25
06:00
WBC Pending
Hgb Pending
Hct Pending
Plt Count Pending
Sodium Pending
Potassium Pending
Chloride Pending
Carbon Dioxide Pending
BUN Pending
Creatinine Pending
Glucose Pending
Calcium Pending
Vital Signs:
Vital Signs
Temp Pulse Resp BP Pulse Ox
98.4 F 75 16 104/61 96
07/27/25 23:20 07/27/25 23:20 07/27/25 23:20 07/27/25 23:20 07/27/25 23:20
I&O
07/27/25 07/28/25 07/29/25
06:59 06:59 06:59
Intake Total 550 / 550 580 / 580
Output Total 1150 / 1150
Balance 550 / 550 -570 / -570
[2025-07-28 08:16] LABS: Hematocrit 32.4 % (37.0-47.0); Hemoglobin 10.3 g/dL (12.0-16.0); Mean Corp Hgb Conc. 31.8 g/dL (33.0-37.0); Mean Corpuscular Volume 84.4 fL (81.0-99.0); Platelet Count 393 10^3/uL (130-400); Red Cell Dist. Width 13.5 % (11.5-14.5)
[2025-07-28] MEDS: LASIX 20 MG PO ×2 (08:17→15:29)
[2025-07-28] MEDS: LEXAPRO 10 MG PO (08:17)
[2025-07-28] MEDS: TRICOR 48 MG PO (08:17)
[2025-07-28] MEDS: PROTONIX 40 MG PO ×2 (08:17→20:32)
[2025-07-28] MEDS: LAMICTAL 250 MG PO ×2 (08:17→20:31)
[2025-07-28] MEDS: VITAMIN D3 (cholecalciferol) 25 MCG PO (08:17)
[2025-07-28] MEDS: SUBUTEX 8 MG SL ×2 (08:17→20:37)
[2025-07-28] MEDS: COZAAR 25 MG PO (08:17)
[2025-07-28] MEDS: GLUCOPHAGE 500 MG PO ×2 (08:18→18:03)
[2025-07-28] MEDS: DESENEX/MITRAZOL/ZEASORB 1 APPLIC TOPICAL (08:18)
[2025-07-28] MEDS: CATAPRES 0.2 MG PO (08:18)
[2025-07-28] MEDS: FOLVITE 1 MG PO (08:18)
[2025-07-28] MEDS: ROXICODONE 10 MG PO ×2 (08:23→13:05)
[2025-07-28 09:06] LABS: Blood Urea Nitrogen 15 mg/dl (7-17); Calcium 9.3 mg/dl (8.4-10.2); Carbon Dioxide 31 mmol/L (22-30); Chloride 101 mmol/L (98-107); Estimated Creatinine Clearance 67 ml/min; Glucose 79 mg/dl (70-99); Magnesium 2.0 mg/dl (1.6-2.3); Potassium 4.3 mmol/L (3.5-5.1); Sodium 134 mmol/L (135-145); eGFR > 60.00
--- NOTE | 2025-07-28 09:36 | PHA.VAN.FU ---
Vancomycin Assessment / Plan
- Assessment
Renal Function: SCR Decreasing
WBC's are: WNL
In the past 24 hrs, patient has been: Afebrile (piperacillin/tazobactam)
Concomitant Antimicrobials: piperacillin/tazobactam
- Assessment - Therapeutic Drug Monitoring
Random Level: 13.3 on 07.28 @ 0742 14 hours after last dose
- Dosing Plan
Adjust Regimen to: vancomycin 1000 mg Q12H
New Regimen Predicts: AUC (574), Peak (32.6), Trough (16.8)
Dosing Comments: t1/2=11.5, Vd=0.7
- Monitoring Plan
No level(s) ordered at this time: consider levels in next few days
- Follow Up
Pharmacy will continue to follow.
Vancomycin Follow UP
- -
Patient Age: 49
Patient Sex: Female
Vancomycin Day #: 2
Indication: Skin And Soft Tissue
Requesting Provider: Dr. Ortiz
Pertinent Antimicrobial Allergies:
vancomycin - infusion reaction
Height / Weight:
Height 5 ft 5 in
Actual Weight 85.411 kg
Pertinent Past Medical History: BMI~32, DM II, BKA
- Vital Signs / Lab Results
Temp Pulse Resp BP Pulse Ox
97.8 F 61 12 134/76 100
07/28/25 07:00 07/28/25 08:17 07/28/25 07:00 07/28/25 08:17 07/28/25 07:00
Lab Results - Hematology
07/26/25 07/27/25 07/28/25
19:55 06:54 07:42
WBC 10.9 H 9.5 7.7
Lab Results - Chemistry
07/26/25 07/27/25 07/28/25
19:55 06:54 07:42
BUN 16 14 15
Creatinine 1.2 H 1.1 H 1.1 H
Estimated Creat Clear 67 67
Albumin 4.1
07/26/25
19:55
Lactic Acid 1.7
Microbiology Results
07/27/25 10:31 Wound Culture - Preliminary
Foot - Left Staphylococcus aureus
Gram Stain - Preliminary
07/27/25 00:32 MRSA Screen - Final
Nose No Methicillin Resistant Staphylococcus aureus isolated.
07/26/25 19:55 Blood Culture - Preliminary
Blood/Venous No Growth in 24 hours- Final report to follow
Therapeutic Drug Monitoring
Random Vancomycin 13.3 ug/ml 07/28/25 07:42
[2025-07-28] MEDS: VANCOCIN IV (13:05)
--- NOTE | 2025-07-28 13:20 | W.PN.ID1 ---
Date of Service
Date of Service: July 28, 2025
Today's Communication
- MRI foot with IV contrast - read pending
- continue with vancomycin and zosyn
Assessment / Plan
A&P
Diabetic Foot Infection
Probable osteomyelitis
JAMESON
- wound culture obtained by nj S aureus
- blood cultures x2 in progress
- mrsa screen negative
- podiatry consulted - planned for TMA
- MRI foot with IV contrast - read pending
- continue with vancomycin and zosyn
Chief Complaint
-: Other (diabetic foot infection)
Subjective / Review of Systems
afebrile
bp stable
tolerating current therapies
Vital Signs / Physical Exam
Vital Signs
Vital Signs
Temp Pulse Resp BP Pulse Ox
97.8 F 61 12 134/76 100
07/28/25 07:00 07/28/25 08:17 07/28/25 07:00 07/28/25 08:17 07/28/25 07:00
Physical Exam
Constitutional: No Acute Distress
Cardiovascular: Regular Rate and S1/S2; Negative Murmur or Rub
Pulmonary: Clear and Symmetric; Negative Wheezes or Rales
Gastrointestinal: Soft, Non Tender, Non Distended and Normal Bowel Sounds
Skin: Warm and Dry; Negative Rash or Jaundice
Wound: Other (deferred dressing take down today, clean, dry, intact)
Objective Data
Lab Data
Lab Results
07/28/25 07:42
07/28/25 07:42
ESR 83 mm/hour (0-20) H 07/27/25 06:54
Estimated Creat Clear 67 ml/min 07/28/25 07:42
Lactic Acid 1.7 mmol/L (0.7-2.0) 07/26/25 19:55
Total Bilirubin 0.3 mg/dl (0.2-1.3) 07/26/25 19:55
AST 15 U/L (14-36) 07/26/25 19:55
ALT 11 U/L (0-35) 07/26/25 19:55
Alkaline Phosphatase 128 U/L (38-126) H 07/26/25 19:55
C-Reactive Protein 189.20 mg/L (0.0-10.00) H 07/27/25 06:54
Most recent labs reviewed.
Micro Results:
07/27/25 12:39 Blood Culture - Preliminary
Blood/Venous No Growth in 24 hours- Final report to follow
07/27/25 10:31 Wound Culture - Preliminary
Foot - Left Staphylococcus aureus
Gram Stain - Preliminary
07/27/25 00:32 MRSA Screen - Final
Nose No Methicillin Resistant Staphylococcus aureus isolated.
07/26/25 19:55 Blood Culture - Preliminary
Blood/Venous No Growth in 24 hours- Final report to follow
[2025-07-28 13:24] LABS: Glucose - Point of Care 80 mg/dl (70-99)
[2025-07-28] MEDS: VANCOCIN 200 IV ×2 (13:45→21:37)
[2025-07-28 15:02] VITALS: BP 100/58
--- NOTE | 2025-07-28 15:30 | PTCARENOTE ---
Pt transferred to 318-2 from [facility]. Transferred from w/c to bed with assist x 1 stand/pivot. AAOx3, VSS. Oriented to room and call downey. Able to make needs known. POC explained. Verbalized understanding of all instructions.
[2025-07-28] MEDS: MORPHINE SULFATE 4 MG IV ×2 (15:35→22:57)
[2025-07-28 16:27] LABS: Glucose - Point of Care 94 mg/dl (70-99)
[2025-07-28] MEDS: LOVENOX 40 MG SC (18:03)
[2025-07-28 20:35] VITALS: BP 112/74
[2025-07-28] MEDS: CATAPRES PO (20:36)
[2025-07-28] MEDS: DESENEX/MITRAZOL/ZEASORB TOPICAL (20:43)
[2025-07-28 21:06] LABS: Glucose - Point of Care 116 mg/dl (70-99)
[2025-07-28] MEDS: BENADRYL 25 MG PO (21:33)
[2025-07-28] MEDS: MELATONIN 10 MG PO (21:33)
[2025-07-28] MEDS: LATUDA 40 MG PO (21:34)
[2025-07-28] MEDS: ATARAX 100 MG PO (21:35)
[2025-07-28] MEDS: ZYRTEC 10 MG PO (21:35)
[2025-07-28 23:17] VITALS: BP 99/67
[2025-07-29] MEDS: ZOSYN 50 IV ×4 (02:54→21:48)
[2025-07-29] MEDS: MORPHINE SULFATE 4 MG IV ×3 (03:11→21:49)
[2025-07-29] MEDS: SYNTHROID 50 MCG PO (05:15)
[2025-07-29 07:00] VITALS: BP 127/78
[2025-07-29] MEDS: VANCOCIN 200 IV (07:00)
[2025-07-29 07:41] LABS: Glucose - Point of Care 82 mg/dl (70-99)
[2025-07-29] MEDS: ZOFRAN 4 MG IV ×2 (07:58→20:08)
--- NOTE | 2025-07-29 07:59 | PHA.VAN.FU ---
Vancomycin Assessment / Plan
- Assessment
Renal Function: SCR Decreasing
WBC's are: WNL
In the past 24 hrs, patient has been: Afebrile
Concomitant Antimicrobials: Piperacillin/Tazobactam
- Dosing Plan
Continue: 1000mg Q12H wih prolonged infusion
- Monitoring Plan
No level(s) ordered at this time: Consider levels in next few days
- Follow Up
Pharmacy will continue to follow.
Vancomycin Follow UP
- -
Patient Age: 49
Patient Sex: Female
Vancomycin Day #: 3
Indication: Skin And Soft Tissue
Requesting Provider: Dr. Ortiz
Pertinent Antimicrobial Allergies:
vancomycin - infusion reaction
Height / Weight:
Height 5 ft 5 in
Actual Weight 85.411 kg
Pertinent Past Medical History: BMI~32, DM II, BKA
- Vital Signs / Lab Results
Temp Pulse Resp BP Pulse Ox
97.5 F 66 18 127/78 100
07/29/25 07:00 07/29/25 07:00 07/29/25 07:00 07/29/25 07:00 07/29/25 07:00
Lab Results - Hematology
07/26/25 07/27/25 07/28/25
19:55 06:54 07:42
WBC 10.9 H 9.5 7.7
Lab Results - Chemistry
07/26/25 07/27/25 07/28/25
19:55 06:54 07:42
BUN 16 14 15
Creatinine 1.2 H 1.1 H 1.1 H
Estimated Creat Clear 67 67
Albumin 4.1
07/26/25
19:55
Lactic Acid 1.7
Microbiology Results
07/26/25 19:55 Blood Culture - Preliminary
Blood/Venous No Growth in 48 hours- Final report to follow
07/27/25 12:39 Blood Culture - Preliminary
Blood/Venous No Growth in 24 hours- Final report to follow
07/27/25 10:31 Wound Culture - Preliminary
Foot - Left Staphylococcus aureus
Gram Stain - Preliminary
07/27/25 00:32 MRSA Screen - Final
Nose No Methicillin Resistant Staphylococcus aureus isolated.
Therapeutic Drug Monitoring
Random Vancomycin 13.3 ug/ml 07/28/25 07:42
--- NOTE | 2025-07-29 08:05 | W.PN.HOSP.TC ---
Today's Communication/Plan
-
see bold
Assessment / Plan
Assessment / Plan
49-year-old history of diabetes complicated by diabetic foot infections in the past coming in with acute onset infection for the last 24 hours in the setting of 1 month diabetic foot ulcer. She is currently afebrile and non-tachycardic. She has a
ulcer on the mid-ball of the left foot. She has no evidence of any endorgan damage at this time.
#Left foot ulcer with surrounding cellulitis and probable osteomyelitis
ESR and CRP elevated, x-rays show severe soft tissue swelling and edema throughout the left foot and dislocation of the proximal phalanx of the second toe
Left foot MRI shows osteomyelitis with abscess, wound culture growing MSSA
Appreciate ID input, change vancomycin to daptomycin as patient vomits when receiving vancomycin, continue Zosyn
Podiatry following, patient likely needs TMA
Trend fever and white count, pain meds
#Vomiting with vancomycin
Vancomycin discontinued 07/29
#Suprapubic abdominal pain
No cellulitis noted, denies dysuria
X-ray negative for constipation
Monitor for now
#Type 2 diabetes
Hemoglobin A1c 5.7
Patient requesting regular diet, sliding scale insulin
#Essential hypertension
Continue clonidine, losartan, resumed Lasix
#Bipolar disorder
Continue lamotrigine, lurasidone
#Hypothyroidism
Continue Synthroid
#History of opioid use disorder
Continue Suboxone
Hypothyroid
- continue synthroid
DVT prophylaxis�subcu Lovenox
Full code
Dispo - return to [facility] upon discharge
Total time spent to see the patient on the floor, examine the patient, review data and lab results, discuss treatment plan with patient, nursing staff around 38 minutes.
Physical Exam
General: No acute distress
HEENT: Normocephalic, Atraumatic, EOMI, MMM
Respiratory: Clear to Auscultation bilaterally
Cardiac: Normal S1/S2, Regular Rate and Rhythm
GI: Soft, Nontender, Nondistended, Normal Bowel Sounds
Extremities: No Clubbing, Cyanosis
Right BKA noted
L middle toe amputations, severe swelling of the left foot with erythema from the distal phalanxes to the middle of the left foot
Neuro: Nonfocal/Grossly Intact
Psych: Calm, Cooperative
Anticipated Discharge: > 48 hours
Subjective/Interval History
-
Date of Service: July 29, 2025
Patient vomits when she receives vancomycin. She does complain of suprapubic abdominal pain, denies dysuria. No fever, no constipation. Denies chest pain, denies shortness of breath.
Objective Data
-
Labs:
Laboratory Results
07/29/25
07:33
WBC Pending
Hgb Pending
Hct Pending
Plt Count Pending
Sodium Pending
Potassium Pending
Chloride Pending
Carbon Dioxide Pending
BUN Pending
Creatinine Pending
Glucose Pending
Calcium Pending
Vital Signs:
Vital Signs
Temp Pulse Resp BP Pulse Ox
97.5 F 66 18 127/78 100
07/29/25 07:00 07/29/25 07:00 07/29/25 07:00 07/29/25 07:00 07/29/25 07:00
I&O
07/28/25 07/29/25 07/30/25
06:59 06:59 06:59
Intake Total 580 / 580 240 / 240
Output Total 1150 / 1150
Balance -570 / -570 240 / 240
[2025-07-29] MEDS: LASIX 20 MG PO ×2 (08:07→15:21)
[2025-07-29] MEDS: LAMICTAL 250 MG PO ×2 (08:07→20:08)
[2025-07-29] MEDS: PROTONIX 40 MG PO ×2 (08:07→20:08)
[2025-07-29] MEDS: GLUCOPHAGE 500 MG PO ×2 (08:08→17:09)
[2025-07-29] MEDS: LEXAPRO 10 MG PO (08:08)
[2025-07-29] MEDS: FOLVITE 1 MG PO (08:08)
[2025-07-29] MEDS: COZAAR 25 MG PO (08:08)
[2025-07-29] MEDS: SUBUTEX 8 MG SL ×2 (08:08→20:07)
[2025-07-29] MEDS: TRICOR 48 MG PO (08:08)
[2025-07-29] MEDS: VITAMIN D3 (cholecalciferol) PO ×2 (08:08→08:18)
[2025-07-29] MEDS: CATAPRES 0.2 MG PO (08:08)
[2025-07-29 08:28] LABS: Hematocrit 37.6 % (37.0-47.0); Hemoglobin 11.7 g/dL (12.0-16.0); Mean Corp Hgb Conc. 31.1 g/dL (33.0-37.0); Mean Corpuscular Volume 86.8 fL (81.0-99.0); Platelet Count 437 10^3/uL (130-400); Red Cell Dist. Width 13.3 % (11.5-14.5)
[2025-07-29] MEDS: ROXICODONE 10 MG PO ×2 (08:28→20:07)
[2025-07-29] MEDS: DESENEX/MITRAZOL/ZEASORB TOPICAL ×2 (08:28→20:08)
[2025-07-29 08:52] LABS: Blood Urea Nitrogen 14 mg/dl (7-17); Calcium 9.3 mg/dl (8.4-10.2); Carbon Dioxide 31 mmol/L (22-30); Chloride 101 mmol/L (98-107); Estimated Creatinine Clearance 73 ml/min; Glucose 80 mg/dl (70-99); Potassium 4.7 mmol/L (3.5-5.1); Sodium 138 mmol/L (135-145); eGFR > 60.00
[2025-07-29 12:02] LABS: Glucose - Point of Care 98 mg/dl (70-99)
[2025-07-29 15:00] VITALS: BP 123/72
[2025-07-29 16:57] LABS: Glucose - Point of Care 84 mg/dl (70-99)
[2025-07-29] MEDS: LOVENOX 40 MG SC (17:12)
[2025-07-29] MEDS: CUBICIN 14 MG IV (17:37)
[2025-07-29] MEDS: CATAPRES PO (20:06)
[2025-07-29] MEDS: ATARAX 100 MG PO (21:48)
[2025-07-29] MEDS: MELATONIN 10 MG PO (21:48)
[2025-07-29] MEDS: LATUDA 40 MG PO (21:48)
[2025-07-29] MEDS: ZYRTEC 10 MG PO (21:49)
[2025-07-29 22:18] LABS: Glucose - Point of Care 113 mg/dl (70-99)
[2025-07-29 23:46] VITALS: BP 109/64
[2025-07-30] VITALS (7 sets, daily range): BP systolic 95–138; BP diastolic 50–84; BMI 31.5
[2025-07-30] MEDS: ROXICODONE 10 MG PO ×2 (03:14→09:14)
[2025-07-30] MEDS: ZOSYN 50 IV ×3 (03:15→20:18)
[2025-07-30] MEDS: MORPHINE SULFATE 4 MG IV ×3 (05:13→20:18)
[2025-07-30] MEDS: SYNTHROID 50 MCG PO (05:13)
[2025-07-30 07:41] LABS: Glucose - Point of Care 80 mg/dl (70-99)
[2025-07-30 07:44] LABS: Hematocrit 34.0 % (37.0-47.0); Hemoglobin 10.4 g/dL (12.0-16.0); Mean Corp Hgb Conc. 30.6 g/dL (33.0-37.0); Mean Corpuscular Volume 85.9 fL (81.0-99.0); Platelet Count 405 10^3/uL (130-400); Red Cell Dist. Width 13.3 % (11.5-14.5)
[2025-07-30 08:20] LABS: Blood Urea Nitrogen 13 mg/dl (7-17); Calcium 9.0 mg/dl (8.4-10.2); Carbon Dioxide 28 mmol/L (22-30); Chloride 100 mmol/L (98-107); Estimated Creatinine Clearance 67 ml/min; Glucose 75 mg/dl (70-99); Potassium 4.0 mmol/L (3.5-5.1); Sodium 137 mmol/L (135-145); eGFR > 60.00
[2025-07-30] MEDS: CATAPRES 0.2 MG PO (09:08)
[2025-07-30] MEDS: GLUCOPHAGE 500 MG PO ×2 (09:08→17:37)
[2025-07-30] MEDS: LAMICTAL 250 MG PO ×2 (09:08→20:17)
[2025-07-30] MEDS: LASIX 20 MG PO ×2 (09:09→17:38)
[2025-07-30] MEDS: TRICOR 48 MG PO (09:09)
[2025-07-30] MEDS: SUBUTEX 8 MG SL ×2 (09:09→20:17)
[2025-07-30] MEDS: PROTONIX 40 MG PO ×2 (09:09→20:17)
[2025-07-30] MEDS: FOLVITE 1 MG PO (09:09)
[2025-07-30] MEDS: LEXAPRO 10 MG PO (09:09)
[2025-07-30] MEDS: COZAAR 25 MG PO (09:09)
[2025-07-30] MEDS: DESENEX/MITRAZOL/ZEASORB TOPICAL ×2 (09:10→20:17)
[2025-07-30] MEDS: FLUSH (NSS) 2 FLUSH IV ×2 (09:17→11:30)
[2025-07-30] MEDS: VITAMIN D3 (cholecalciferol) PO (09:19)
--- NOTE | 2025-07-30 10:45 | CM ---
Patient seen at bedside
patient from [facility]
Referral placed in [facility]-accepted
Patient confirms plan upon d.c to return to [facility].
Plan; return to [facility] when stable
[facility]
Report: [phone]
--- NOTE | 2025-07-30 10:55 | W.PN.HOSP.TC ---
Addendum entered and electronically signed by Hoda Quintana MD 07/30/25 15:25:
# Right BKA distal stump, Stage 2 Pressure Injury, POA
# Coccyx Stage 2 Pressure Injury, POA
Original Note:
Today's Communication/Plan
-
see A/P
Assessment / Plan
Assessment / Plan
HPI: 49-year-old H diabetes complicated by diabetic foot infections in the past, p/w acute onset infection for the last 24 hours in the setting of 1 month diabetic foot ulcer.
She has a ulcer on the mid-ball of the left foot. She has no evidence of any end-organ damage at this time.
A/P
# Left foot diabetic ulcer with surrounding cellulitis and osteomyelitis
ESR and CRP elevated, x-rays show severe soft tissue swelling and edema throughout the left foot and dislocation of the proximal phalanx of the second toe
Left foot MRI shows osteomyelitis with abscess,
wound culture growing MSSA
Appreciate ID input, changed vancomycin to daptomycin as patient vomits when receiving vancomycin,
continue Zosyn
Podiatry following, patient likely needs TMA, timing TBD
Trend fever and white count, pain meds
# Vomiting with vancomycin
Vancomycin discontinued 07/29
# Suprapubic abdominal pain
No cellulitis noted, denies dysuria
X-ray negative for constipation
Monitor for now
# Type 2 diabetes
Hemoglobin A1c 5.7
Patient requesting regular diet,
sliding scale insulin coverage
# Essential hypertension
Continue clonidine, losartan, resumed Lasix
# Bipolar disorder
Continue lamotrigine, lurasidone
# Hypothyroidism
Continue Synthroid
# History of opioid use disorder
Continue Suboxone
DVT prophylaxis�subcu Lovenox
Full code
Dispo - return to [facility] upon discharge
Anticipated Discharge: > 48 hours
Subjective/Interval History
-
Date of Service: July 30, 2025
Objective Data
-
Labs:
Laboratory Results
07/30/25
06:42
WBC 6.2
Hgb 10.4 L
Hct 34.0 L
Plt Count 405 H
Sodium 137
Potassium 4.0
Chloride 100
Carbon Dioxide 28
BUN 13
Creatinine 1.1 H
Glucose 75
Calcium 9.0
Vital Signs:
Vital Signs
Temp Pulse Resp BP Pulse Ox
36.4 C 67 14 138/84 100
07/30/25 07:49 07/30/25 09:08 07/30/25 07:49 07/30/25 09:08 07/30/25 07:49
I&O
07/29/25 07/30/25 07/31/25
06:59 06:59 06:59
Intake Total 240 / 240 1320 / 1320
Balance 240 / 240 1320 / 1320
Review of Systems
-
History Source: Patient
All other systems: Reviewed and negative
Physical Exam
-
General: Well Developed, Well Nourished, No Apparent Distress, Comfortable and Conversant
HEENT: Normocephalic
Respiratory: Clear to Auscultation and Non Labored Respirations; Negative Accessory Resp Muscle Use
Cardiac: Regular Rhythm and S1/S2
GI: Soft and Nontender
Musculoskeletal: Other (R BKA)
Neuro: Awake and Alert
Psych: Calm and Intact Judgement/Insight
Data Reviewed
-
Labs: Labs Reviewed by me
[2025-07-30 11:47] LABS: Glucose - Point of Care 85 mg/dl (70-99)
--- NOTE | 2025-07-30 12:38 | W.PN.ID1 ---
Date of Service
Date of Service: July 30, 2025
Today's Communication
- continue with daptomycin and zosyn
Assessment / Plan
A&P
Diabetic Foot Infection
Probable osteomyelitis
JAMESON
- wound culture obtained by wa S aureus
- blood cultures x2 in progress
- mrsa screen negative
- podiatry consulted - planned for TMA
- MRI foot with IV contrast - osteomyelitis distal second metatarsal and base of second toe, fluid collection noted
- continue with daptomycin and zosyn
Chief Complaint
-: Other (diabetic foot infection)
Subjective / Review of Systems
afebrile
bp stable
awaiting amputation
Vital Signs / Physical Exam
Vital Signs
Vital Signs
Temp Pulse Resp BP Pulse Ox
97.6 F 67 14 138/84 100
07/30/25 07:49 07/30/25 09:08 07/30/25 07:49 07/30/25 09:08 07/30/25 07:49
Physical Exam
Constitutional: No Acute Distress
Cardiovascular: Regular Rate and S1/S2; Negative Murmur or Rub
Pulmonary: Clear and Symmetric; Negative Wheezes or Rales
Gastrointestinal: Soft, Non Tender, Non Distended and Normal Bowel Sounds
Skin: Warm and Dry; Negative Rash or Jaundice
Wound: Other (dressing clean, dry, intact)
Objective Data
Lab Data
Lab Results
07/30/25 06:42
07/30/25 06:42
ESR 83 mm/hour (0-20) H 07/27/25 06:54
Estimated Creat Clear 67 ml/min 07/30/25 06:42
Lactic Acid 1.7 mmol/L (0.7-2.0) 07/26/25 19:55
Total Bilirubin 0.3 mg/dl (0.2-1.3) 07/26/25 19:55
AST 15 U/L (14-36) 07/26/25 19:55
ALT 11 U/L (0-35) 07/26/25 19:55
Alkaline Phosphatase 128 U/L (38-126) H 07/26/25 19:55
C-Reactive Protein 189.20 mg/L (0.0-10.00) H 07/27/25 06:54
Most recent labs reviewed.
Micro Results:
07/26/25 19:55 Blood Culture - Preliminary
Blood/Venous No Growth in 72 hours- Final report to follow
07/27/25 12:39 Blood Culture - Preliminary
Blood/Venous No Growth in 48 hours- Final report to follow
07/27/25 10:31 Wound Culture - Final
Foot - Left S aureus-Methicillin Sensitive
Gram Stain - Final
07/27/25 00:32 MRSA Screen - Final
Nose No Methicillin Resistant Staphylococcus aureus isolated.
--- NOTE | 2025-07-30 15:08 | PTCARENOTE ---
Report provided to OR.
--- NOTE | 2025-07-30 15:10 | PN.CDI ---
CDI
- -
CDI:
Physician Documentation Request
Admit Date: 07/26/25 23:12
Dear Doctor Lilian,
Clinical Indicators:
Patient admitted with left foot diabetic ulcer with cellulitis and osteomyelitis.
07/27 WO RN skin/wound assessment: Right BKA distal stump, Stage 2 Pressure Injury, POA
Coccyx Stage 2 Pressure Injury, POA
Treatment: Silicone border foam dressing, [employer] air mattress
Physician documentation of the type and location of wounds is required for compliant documentation. Based on the above clinical findings and your assessment, please provide the following in your progress note:
1. Location of the ulcer/wound, including laterality.
2. Type (etiology) of ulcer/wound:
- Pressure (decubitus) ulcer
- Other
3. If a pressure ulcer, please also include the stage* of the ulcer:
- Stage 1 - Skin intact, non-blanchable redness
- Stage 2 - Partial thickness loss of dermis, includes intact or open blister
- Stage 3 - Full thickness tissue not including bone, tendon or muscle
- Stage 4 - Full thickness tissue loss, including exposed bone, tendon or muscle
- Unstageable - Full thickness loss in which the base of the ulcer is covered by slough (yellow, blanco, troncoso, green or brown) and/or eschar (blanco, brown or black) in the wound bed.
- Unable to determine
Use of terms such as suspected, likely, concern for, or probable (associated with a specific diagnosis that is being evaluated, monitored, or treated as if it exists) are acceptable and can be coded in the inpatient setting, when documented at the
time of discharge.
Thank you,
AILEEN Sanchez RN
CDI Specialist
available via tiger text
Please use your independent medical judgment in providing your response.
*Source: National Pressure Ulcer Advisory Panel (NPUAP)
[2025-07-30] MEDS: ZOSYN IV (15:46)
--- NOTE | 2025-07-30 16:09 | W.PN.UPDATE ---
Update Note
Progress Note Update
49F s/p L TMA for OM
- presumed surgical cure of OM, recommend 2 weeks po abx for skin/soft tissue coverage, per ID recs
- NWB LLE
- elevate RLE on 2-3 pillows, keep heel in floating position
- Dressings intact 1 week then dressing changes wednesday and (betadine paint, DSD, GEORGES)
- will reassess on AM rounds
[2025-07-30 16:40] LABS: Glucose - Point of Care 107 mg/dl (70-99)
[2025-07-30] MEDS: CUBICIN 14 MG IV (17:37)
[2025-07-30] MEDS: LOVENOX 40 MG SC (17:38)
--- NOTE | 2025-07-30 17:45 | PTCARENOTE ---
Received pt from OR via bed. L foot assessed with 2 CHARTING CLERK's at bedside, sabrina wrap present. No complaints of pain. VSS. Will continue to monitor.
[2025-07-30] MEDS: CATAPRES PO (20:17)
[2025-07-30] MEDS: MELATONIN 10 MG PO (21:46)
[2025-07-30] MEDS: ATARAX 100 MG PO (21:46)
[2025-07-30] MEDS: LATUDA 40 MG PO (21:46)
[2025-07-30] MEDS: ZYRTEC 10 MG PO (21:46)
[2025-07-30 22:05] LABS: Glucose - Point of Care 143 mg/dl (70-99)
[2025-07-31] MEDS: ZOSYN 50 IV ×2 (02:58→08:53)
[2025-07-31] MEDS: MORPHINE SULFATE 4 MG IV ×4 (02:59→17:32)
[2025-07-31 05:21] VITALS: BMI 31.8
[2025-07-31] MEDS: SYNTHROID 50 MCG PO (06:04)
[2025-07-31 07:13] VITALS: BP 124/81
[2025-07-31 07:25] LABS: Hematocrit 32.9 % (37.0-47.0); Hemoglobin 10.2 g/dL (12.0-16.0); Mean Corp Hgb Conc. 31.0 g/dL (33.0-37.0); Mean Corpuscular Volume 84.1 fL (81.0-99.0); Platelet Count 389 10^3/uL (130-400); Red Cell Dist. Width 13.4 % (11.5-14.5)
[2025-07-31 07:40] LABS: Blood Urea Nitrogen 11 mg/dl (7-17); Calcium 9.2 mg/dl (8.4-10.2); Carbon Dioxide 30 mmol/L (22-30); Chloride 100 mmol/L (98-107); Estimated Creatinine Clearance 67 ml/min; Glucose 93 mg/dl (70-99); Potassium 4.5 mmol/L (3.5-5.1); Sodium 134 mmol/L (135-145); eGFR > 60.00
[2025-07-31] MEDS: LEXAPRO 10 MG PO (07:45)
[2025-07-31] MEDS: LASIX 20 MG PO (07:45)
[2025-07-31] MEDS: CATAPRES 0.2 MG PO (07:46)
[2025-07-31] MEDS: VITAMIN D3 (cholecalciferol) 25 MCG PO (07:46)
[2025-07-31] MEDS: LAMICTAL 250 MG PO (07:46)
[2025-07-31] MEDS: PROTONIX 40 MG PO (07:46)
[2025-07-31] MEDS: GLUCOPHAGE 500 MG PO ×2 (07:47→17:27)
[2025-07-31] MEDS: SUBUTEX 8 MG SL (07:47)
[2025-07-31] MEDS: FOLVITE 1 MG PO (07:47)
[2025-07-31] MEDS: COZAAR 25 MG PO (07:47)
[2025-07-31] MEDS: TRICOR 48 MG PO (07:47)
[2025-07-31 07:51] LABS: Glucose - Point of Care 90 mg/dl (70-99)
[2025-07-31] MEDS: DESENEX/MITRAZOL/ZEASORB TOPICAL (07:52)
--- NOTE | 2025-07-31 09:14 | W.PN.UPDATE ---
Update Note
Progress Note Update
49F s/p L TMA for OM. Doing well this AM, anticipated postop pain
- presumed surgical cure of OM, recommend 2 weeks po abx for skin/soft tissue coverage, per ID recs
- NWB LLE
- elevate RLE on 2-3 pillows, keep heel in floating position
- Dressings intact 1 week then dressing changes wednesday and (betadine paint, DSD, GEORGES)
- may follow up in office with Manuel or myself
--- NOTE | 2025-07-31 09:58 | W.PN.HOSP.TC ---
Today's Communication/Plan
-
see A/P
Assessment / Plan
Assessment / Plan
HPI: 49-year-old H diabetes complicated by diabetic foot infections in the past, p/w acute onset infection for the last 24 hours in the setting of 1 month diabetic foot ulcer.
She has a ulcer on the mid-ball of the left foot. She has no evidence of any end-organ damage at this time.
A/P
# Left foot diabetic ulcer with surrounding cellulitis and osteomyelitis
ESR and CRP elevated, x-rays show severe soft tissue swelling and edema throughout the left foot and dislocation of the proximal phalanx of the second toe
Left foot MRI shows osteomyelitis with abscess,
wound culture growing MSSA
Appreciate ID input, changed vancomycin to daptomycin as patient vomits when receiving vancomycin,
continue current Zosyn
s/p L TMA 07/30, presumed surgical cure of OM, recommend 2 weeks po abx for skin/soft tissue coverage per cytology supervisor
NWB LLE, elevate RLE on 2-3 pillows, keep heel in floating position, Dressings intact 1 week then dressing changes wednesday and (betadine paint, DSD, GEORGES)
Follow up outpt
PT eval post surgery
# Suprapubic abdominal pain, resolved
No cellulitis noted, denies dysuria. X-ray negative for constipation
# Type 2 diabetes
Hemoglobin A1c 5.7
Patient requesting regular diet,
sliding scale insulin coverage
# Essential hypertension
Continue clonidine, losartan, resumed Lasix
# Bipolar disorder
Continue lamotrigine, lurasidone
# Hypothyroidism
Continue Synthroid
# History of opioid use disorder
Continue Suboxone
DVT prophylaxis�subcu Lovenox
Full code
Dispo - return to [facility] upon discharge
Anticipated Discharge: Within 24 hours
Subjective/Interval History
-
Date of Service: July 31, 2025
Objective Data
-
Labs:
Laboratory Results
07/31/25
06:33
WBC 6.0
Hgb 10.2 L
Hct 32.9 L
Plt Count 389
Sodium 134 L
Potassium 4.5
Chloride 100
Carbon Dioxide 30
BUN 11
Creatinine 1.1 H
Glucose 93
Calcium 9.2
Vital Signs:
Vital Signs
Temp Pulse Resp BP Pulse Ox
36.6 C 81 17 124/81 99
07/31/25 07:13 07/31/25 07:45 07/31/25 07:13 07/31/25 07:45 07/31/25 09:13
I&O
07/30/25 07/31/25 08/01/25
06:59 06:59 06:59
Intake Total 1320 / 1320 850 / 850
Balance 1320 / 1320 850 / 850
Review of Systems
-
History Source: Patient
All other systems: Reviewed and negative
Physical Exam
-
General: Well Developed, Well Nourished, No Apparent Distress, Comfortable and Conversant
HEENT: Normocephalic
Respiratory: Clear to Auscultation and Non Labored Respirations; Negative Accessory Resp Muscle Use
Cardiac: Regular Rhythm and S1/S2
GI: Soft and Nontender
Musculoskeletal: Other (R BKA)
Skin: Other (L foot in wound bandage )
Neuro: Awake and Alert
Psych: Calm
Data Reviewed
-
Labs: Labs Reviewed by me
--- NOTE | 2025-07-31 11:53 | W.PN.ID1 ---
Date of Service
Date of Service: July 31, 2025
Today's Communication
- start keflex can complete a two week course as recommended by podiatry- stop daptomycin and zosyn
Assessment / Plan
A&P
Diabetic Foot Infection
Probable osteomyelitis
JAMESON
- wound culture - MSSA
- blood cultures x2 in progress no growth to date
- s/p TMA suspected surgical cure
- pathology pending
- start keflex can complete a two week course as recommended by podiatry- stop daptomycin and zosyn
- follow up with podiatry
Chief Complaint
-: Other (diabetic foot infection)
Subjective / Review of Systems
afebrile
bp stable
asking about discharge
Vital Signs / Physical Exam
Vital Signs
Vital Signs
Temp Pulse Resp BP Pulse Ox
97.8 F 81 17 124/81 99
07/31/25 07:13 07/31/25 07:45 07/31/25 07:13 07/31/25 07:45 07/31/25 09:13
Physical Exam
Constitutional: No Acute Distress
Cardiovascular: Regular Rate and S1/S2; Negative Murmur or Rub
Pulmonary: Clear and Symmetric; Negative Wheezes or Rales
Gastrointestinal: Soft, Non Tender, Non Distended and Normal Bowel Sounds
Skin: Warm and Dry; Negative Rash or Jaundice
Wound: Other (dressing clean, dry, intact)
Objective Data
Lab Data
Lab Results
07/31/25 06:33
07/31/25 06:33
ESR 83 mm/hour (0-20) H 07/27/25 06:54
Estimated Creat Clear 67 ml/min 07/31/25 06:33
Lactic Acid 1.7 mmol/L (0.7-2.0) 07/26/25 19:55
Total Bilirubin 0.3 mg/dl (0.2-1.3) 07/26/25 19:55
AST 15 U/L (14-36) 07/26/25 19:55
ALT 11 U/L (0-35) 07/26/25 19:55
Alkaline Phosphatase 128 U/L (38-126) H 07/26/25 19:55
C-Reactive Protein 189.20 mg/L (0.0-10.00) H 07/27/25 06:54
Most recent labs reviewed.
Micro Results:
07/30/25 17:00 Wound Culture - Pending
Foot - Left Gram Stain - Preliminary
07/26/25 19:55 Blood Culture - Preliminary
Blood/Venous No Growth in 4 days- Final report to follow
07/30/25 17:00 Anaerobic Culture - Pending
Foot - Left
07/27/25 12:39 Blood Culture - Preliminary
Blood/Venous No Growth in 72 hours- Final report to follow
07/27/25 10:31 Wound Culture - Final
Foot - Left S aureus-Methicillin Sensitive
Gram Stain - Final
07/27/25 00:32 MRSA Screen - Final
Nose No Methicillin Resistant Staphylococcus aureus isolated.
[2025-07-31 11:59] LABS: Glucose - Point of Care 113 mg/dl (70-99)
[2025-07-31] MEDS: KEFLEX 500 MG PO ×2 (12:07→17:26)
[2025-07-31 12:35] VITALS: BP 134/76; PULSE 84; O2SAT 97
[2025-07-31 12:38] VITALS: BP 130/76; PULSE 88; O2SAT 98
--- NOTE | 2025-07-31 13:49 | CM ---
Addendum entered by Leola Morales 07/31/25 15:12:
0 transport set
Original Note:
patient seen at bedside
LTC resident [facility] - updated careport
dc today
oral Keflex
PT/OT eval
rec home health
OR yesterday
PROCEDURE: Multi-plane incisional debridement and left foot
transmetatarsal amputation
NWB
spoke with Jill at [facility]-no auth needed
PLAN: [facility]
Report: [phone]
[2025-07-31 15:27] VITALS: BP 107/75
[2025-07-31] MEDS: LASIX PO (15:27)
--- NOTE | 2025-07-31 15:57 | PN.CDI ---
CDI
- -
CDI:
Physician Documentation Request
Admit Date: 07/26/25 23:12
Dear Doctor Pa,
Clinical Indicators:
Patient admitted with Left foot osteomyelitis.
07/30 Operative Report: PROCEDURE: Multi-plane incisional debridement and left foot transmetatarsal
amputation.
DESCRIPTION OF PROCEDURE: 'Patient was brought to the operating room for multiplane
excisional debridement...'
Due to potentially conflicting documentation, please provide further clarification regarding the debridement.
Please clarify the type of debridement performed:
1. Excisional Debridement - defined as removal by excision of devitalized tissue, necrosis or slough
2. Non-excisional debridement - defined as removal of devitalized tissue, necrosis or slough by such methods as
irrigation, brushing, scrubbing or washing.
If the debridement was excisional, please also include:
1. Type of instrument used (#11 blade, #15 blade etc.)
2. What was excised (necrotic tissue, gangrenous tissue, slough etc.)
For excisional or non-excisional, please also include:
1. Depth of debridement (skin, subcutaneous tissue, fascia, muscle, bone etc)
2. Size and appearance of the wound (L, W, D, color of wound, drainage)
Use of terms such as suspected, likely, concern for, or probable (associated with a specific diagnosis that is being evaluated, monitored, or treated as if it exists) are acceptable and can be coded in the inpatient setting, when documented at the
time of discharge.
Thank you,
AILEEN Sanchez RN
CDI Specialist
available via tiger text
Please use your independent medical judgment in providing your response.
[2025-07-31 16:55] LABS: Glucose - Point of Care 120 mg/dl (70-99)
[2025-07-31] MEDS: LOVENOX 40 MG SC (17:27)
--- NOTE | 2025-07-31 20:55 | PTCARENOTE ---
Pt discharged back to [facility]. VSS. IV removed prior to discharge. Pt transported by [facility]. All belongings sent with pt. Report called by Yosef ORLANDO.
--- NOTE | 2025-08-01 11:47 | W.DCSUMMARY ---
Discharge Summary
Discharge Data
Date of Admission: 07/26/25
Date of Discharge: 07/31/25
Total time spent discharging patient (in min): 40
-
Pending Results: No
Hospital Course
Principal Diagnosis:
Left foot diabetic ulcer with surrounding cellulitis and osteomyelitis
Chronic Diagnoses:�
Type 2 diabetes. Hemoglobin A1c 5.7%
Essential hypertension, on clonidine, losartan, Lasix
Bipolar disorder. Continue lamotrigine, lurasidone
Hypothyroidism, on Synthroid
History of opioid use disorder, on Suboxone
Consultations:�
Infectious disease
Podiatry
Procedures:�
s/p L TMA for OM
Clinical course:�
This is a 49-year-old female with past medical history as stated above, who presented with worsening left foot diabetic ulcer.
Problem 1:
Left foot diabetic ulcer with surrounding cellulitis and osteomyelitis.
Her Left foot MRI showed osteomyelitis with abscess, and her wound culture grew MSSA.
She was kept on Zosyn per ID (did not tolerate vancomycin due to vomiting).
She underwent L TMA on 07/30 which likely achieved surgical cure of her OM. She was discharged with oral Keflex for 2 more weeks.
As for the rest of her medical problems, they were stable during her hospital stay.
Discharge Plan
-
Patient Disposition: [facility]
Discharge Diagnosis/Procedures: Left foot diabetic ulcer with surrounding cellulitis and osteomyelitis;
status post L Transmetatarsal amputation
Condition: Fair
Diet: As tolerated
Activity: As tolerated
Driving Restrictions: No driving
Wound Care: Wound Care Instructions
07/30/28 s/p L TMA
- NWB LLE
- elevate LE on 2-3 pillows, keep heel in floating position
- Dressings intact 1 week then dressing changes wednesday and (betadine paint, DSD, GEORGES)
R BKA stump open area-clean with saline, 2x2 inch piece hydrocolloid dressing, change daily.
Coccyx-clean with saline, silicone border foam, change every 3 days and as needed for loosened dressing. If foam ineffective, apply zinc barrier ointment BID instead.
Pressure redistributing chair cushion (i.e. Air, gel).
Elevate L heel off bed with pillow and/or air chair cushion.
Air mattress.
Follow up with surgeon Dr. Jarett Winn.
Referrals:
Yu Haney MD [Family Provider] - in less than 1 week
Additional Discharge Medication Instructions: Continue Keflex for 2 weeks
Prescriptions:
New
cephalexin 500 mg Capsule
500 mg PO QID 14 Days Qty: 56 0RF
Continued
metformin 500 mg Tablet
500 mg PO BIDWMEAL
acetaminophen 325 mg Tablet
650 mg PO Q6HPRN PRN (Reason: mild pain/temp>100.4)
lamotrigine [Lamictal] 200 mg Tablet
250 mg PO BID
ondansetron HCl 4 mg Tablet
8 mg PO Q8HPRN PRN (Reason: nausea)
loperamide [Imodium A-D] 2 mg Tablet
2 mg PO [id number] PRN (Reason: diarrhea)
clonidine HCl 0.2 mg Tablet
0.2 mg PO Q12H
magnesium hydroxide [Milk of Magnesia] 400 mg/5 mL Suspension
30 ml PO DAILYPRN PRN (Reason: if no bm in 3 days)
levothyroxine 50 mcg Tablet
50 mcg PO DAILY
pantoprazole 40 mg Tablet,Delayed Release (Dr/Ec)
40 mg PO BID
Fleet Enema 19-7 gram/118 mL Enema
118 ml PA DAILYPRN PRN (Reason: if suppository is ineffective)
folic acid 1 mg Tablet
1 mg PO DAILY
furosemide 20 mg Tablet
20 mg PO BID
eucalyptus-menthol Lozenge
3.1 mg MUCOUS MEMBRANE Q1HPRN PRN (Reason: cough)
sodium chloride 0.65 % Aerosol,[place]
1 spray INTRANASAL [id number] PRN (Reason: dry nasal)
fenofibrate 54 mg Tablet
54 mg PO DAILY
melatonin 10 mg Tablet
20 mg PO HS
Ozempic 0.25 mg or 0.5 mg (2 mg/3 mL) Pen Injector
1 mg SC TU
hydroxyzine HCl 50 mg Tablet
100 mg PO HS
hydroxyzine HCl 50 mg Tablet
50 mg PO Q6HPRN PRN (Reason: anxiety)
losartan 25 mg Tablet
25 mg PO DAILY
escitalopram oxalate [Lexapro] 10 mg Tablet
10 mg PO DAILY
cetirizine [Zyrtec] 10 mg Tablet
10 mg PO HS
acetaminophen [Tylenol Extra Strength] 500 mg Tablet
1,000 mg PO TIDPRN
bisacodyl [Dulcolax (bisacodyl)] 10 mg Suppository
10 mg PA DAILYPRN PRN (Reason: if no bm after mom)
diphenhydramine HCl [Benadryl] 25 mg Capsule
25 mg PO [id number] PRN (Reason: itching)
nystatin 100,000 unit/gram Powder
1 applic TOPICAL BID
menthol [Biofreeze (menthol)] 5 % Adhesive Patch,Medicated
1 patch TOPICAL DAILYPRN PRN (Reason: right shoulder)
cholecalciferol (vitamin D3) [Vitamin D3] 25 mcg (1,000 unit) Tablet
25 mcg PO DAILY
budesonide-formoterol [Symbicort] 80-4.5 mcg/actuation Hfa Aerosol Inhaler
2 inh INHALATION R BID
buprenorphine-naloxone 8-2 mg Tablet, Sublingual
1 tab SUBLINGUAL BID
lurasidone [Latuda] 40 mg tablet
40 mg PO HS
miconazole nitrate [Antifungal (miconazole)] 2 % Powder
1 applic TOPICAL DAILY
epinephrine 0.3 mg/0.3 mL Auto-Injector
0.3 mg IM PRN PRN (Reason: allergic reaction to bees)
lurasidone 60 mg Tablet
60 mg PO DAILY
Discontinued
lorazepam gel
topical
Rx Instructions:
LORAZEMPAM GEL 1MG/ML apply to hairless area of body topically every 24hours for anxiety
Discharge Orders:
Discharge Patient (As Directed); Ordered 07/31/25
Ordered By: Hoda Quintana
Discharge Date and Time
Discharge Date/Time: 07/31/25 21:02
Print Language: VIETNAMESE
--- NOTE | 2025-08-02 17:51 | W.PN.UPDATE ---
Update Note
Progress Note Update
addendum, excisional debridement performed to the level of muscular tissue
== END 2025-07-31 21:02 | DRG 464 ==
LOC: 3 WEST ACU 23:12
PROVIDERS: Family Medicine; Student in an Organized Health Care Education/Training Program; ADMITTING PHYSICIAN Internal Medicine; ATTENDING PHYSICIAN Internal Medicine; EMERGENCY PHYSICIAN Emergency Medicine; FAMILY PHYSICIAN Internal Medicine; OTHER PHYSICIAN Student in an Organized Health Care Education/Training Program
PROC: 0JBR0ZZ Excision of Left Foot Subcutaneous Tissue and Fascia, Open Approach (ICD-10-PCS; 2025-07-30)
PROC: 0Y6N0ZB Detachment at Left Foot, Partial 2nd Ray, Open Approach (ICD-10-PCS; 2025-07-30)
DX: M86.9 Osteomyelitis, unspecified (principal); L02.612 Cutaneous abscess of left foot; L03.116 Cellulitis of left lower limb; N17.9 Acute kidney failure, unspecified; E11.628 Type 2 diabetes mellitus with other skin complications; E11.69 Type 2 diabetes mellitus with other specified complication; E03.9 Hypothyroidism, unspecified; F11.10 Opioid abuse, uncomplicated; L89.152 Pressure ulcer of sacral region, stage 2; L89.892 Pressure ulcer of other site, stage 2
CPT/HCPCS: 73630; 73720; 74018; 80048; 80053; 80202; 82962; 83036; 83605; 83735; 84703; 85025; 85027; 85652; 86140; 87040; 87070; 87075; 87077; 87147; 87186; 87205; 88304; 88307; 88311; 96361; 96365; 96375; 97163; 97167; 99285; A9575; J0878